=== PATIENT | female | born 1960 | race Asian ===

== ENCOUNTER → 2018-02-16 09:47 | Outpatient (CLI) | payer BC, SELFPAY ==
--- NOTE | 2018-02-16 09:49 | BI_ITS ---
MAMMOGRAPHY - BILATERAL SCREENING REASON FOR EXAM: Female, 57 years old. Routine annual screening examination. PERTINENT HISTORY: Non-contributory. TECHNIQUE: Digital bilateral breast getachew (3D mammographic acquisition) in the CC and MLO projections. 2-D mediolateral oblique (MLO) and craniocaudad (CC) views of both breasts were obtained. CAD: Full Field Digital Mammography with Computer Added Detection was performed. COMPARISON: Comparison is made with prior study dated January 22, 2017 and November 01, 2015. FINDINGS: Breast Composition: The breasts are heterogeneously dense, which may obscure small masses. There are no dominant masses or suspicious calcifications. No other significant abnormalities are identified. There has been no significant change since the prior study. BI/SCREENING MAMM (CAD), BILAT IMPRESSION: Stable bilateral screening mammogram. Yearly follow-up mammogram recommended. (A) ASSESSMENT CATEGORY: BIRADS Category 1: Negative. A letter regarding these results will be sent to the patient by the facility within 30 days. Approximately 10% of breast cancers are not detected by mammography. A normal mammogram should not delay biopsy of a clinically suspicious abnormality. [id number] Electronically Signed: Clayton Bishop MD at 11:14 EDT Tel [phone], Service support ,
== END ==
PROVIDERS: Family Provider Internal Medicine; PCP Internal Medicine; Visit Provider Internal Medicine
DX: Z12.31 Encounter for screening mammogram for malignant neoplasm of breast (principal)
CPT/HCPCS: 77063; 77067

== ENCOUNTER → 2018-05-18 09:49 | Outpatient (CLI) | payer BC, SELFPAY ==
--- NOTE | 2018-05-18 09:52 | RAD_ITS ---
STUDY: X-RAY - LUMBAR SPINE REASON FOR EXAM: Female, 57 years old. Back pain. TECHNIQUE: 5 view(s) of the lumbar spine were obtained. COMPARISON: None FINDINGS: Normal lumbar lordosis. There is no substantial scoliosis. There is a normal alignment of the vertebrae. There is generalized demineralization of the vertebral bodies. Normal disc space heights. There is no demonstrated fracture. The soft tissue structures are unremarkable. RAD/L/S Spine Min 4 Views IMPRESSION: No fracture. Disc spaces are well-preserved. Electronically Signed: Tal Harrell MD at 19:51 EDT , Service support ,
== END ==
PROVIDERS: Family Provider Internal Medicine; PCP Internal Medicine; Visit Provider Nurse Practitioner Gerontology
DX: M54.9 Dorsalgia, unspecified (principal)
CPT/HCPCS: 72110

== ENCOUNTER → 2019-01-13 08:41 | Outpatient (CLI) | payer BC, SELFPAY ==
--- NOTE | 2019-01-13 12:02 | NEURO ---
NCS and/or EMG Patient Report Ordering Doctor: Daniele Pham DATE OF SERVICE: 01/13/19 Jony Tolentino is a 58-year-old female presents for electrodiagnostic testing of the lower limbs. She reports burning and tingling in both feet for the past 6-7 months. Electrodiagnostic findings: Peroneal motor nerve demonstrates normal distal latency, amplitude and conduction velocity bilaterally. Normal tibial motor response bilaterally. Normal peroneal and tibial F waves. H reflex within normal limits. Sensory responses are normal bilaterally. Needle EMG testing shows no evidence of denervation in any muscles tested. Motor unit action potentials were of normal amplitude and duration. Electrodiagnostic impression: This is a normal study in the lower limbs. There is no electrodiagnostic evidence for lumbosacral radiculopathy or peripheral neuropathy. If there are any further questions, please not hesitate to contact me
== END ==
PROVIDERS: Family Provider Internal Medicine; PCP Internal Medicine; Referring Provider Podiatrist; Visit Provider Podiatrist
DX: G57.53 Tarsal tunnel syndrome, bilateral lower limbs (principal); G62.9 Polyneuropathy, unspecified
CPT/HCPCS: 95886; 95913

== ENCOUNTER → 2019-02-25 | Outpatient (CLI) | payer BC, SELFPAY ==
--- NOTE | 2019-02-25 08:21 | BI_ITS ---
MAMMOGRAPHY - BILATERAL SCREENING 3-D TOMOSYNTHESIS REASON FOR EXAM: Female, 58 years old. Bilateral Screening 3-D tomosynthesis PERTINENT HISTORY: No significant family history. TECHNIQUE: 2-D mammograms and 3-D Tomosynthesis of the breast (s) were performed. CAD was performed. COMPARISON: 02/16/2018 FINDINGS: The breast composition is heterogeneously dense that can obscure small breast masses. Scattered benign calcifications are seen. No dense spiculated masses or suspicious microcalcifications are identified. No architectural distortion is identified. There is no skin thickening or retraction. There has been no significant change since the prior study. BI/SCREENING MAMM (CAD), BILAT IMPRESSION: No mammographic signs of malignancy. Routine yearly mammograms recommended. ASSESSMENT CATEGORY: BIRADS Category 1: Negative. A letter regarding these results will be sent to the patient by the facility within 30 days. FOLLOW UP RECOMMENDATION: Yearly follow up mammogram recommended. (A) Approximately 10% of breast cancers are not detected by mammography. A normal mammogram should not delay biopsy of a clinically suspicious abnormality. Electronically Signed: Filiberto Altamirano MD at 9:46 EDT , Service support ,
== END | disposition home or self-care (01) ==
LOC: OPBI 08:20
PROVIDERS: Family Provider Internal Medicine; PCP Internal Medicine; Referring Provider Internal Medicine; Visit Provider Internal Medicine
DX: Z12.31 Encounter for screening mammogram for malignant neoplasm of breast (principal)
CPT/HCPCS: 77063; 77067

== ENCOUNTER 2019-03-12 11:17 | Emergency (ER) | payer BC, SELFPAY ==
[2019-03-12 11:19] VITALS: BP 158/86; PULSE 78; RESP 16; TEMP 36.9; O2SAT 99; BMI 30.4
--- NOTE | 2019-03-12 12:59 | ED.VISSUMM ---
- ER Visit Summary Date of Service: 03/12/19 Chief Complaint: [Swelling to right arm] History of Present Illness: The patient is a 58 F [presents the emergency department complaint of swelling to the right arm. Patient apparently had a CT scan done early this morning as an outpatient in the injected IV fluid and small amount of contrast into her right arm. After speaking with radiologist it was believed that most of the extravasation was from fluid and I suspect may be up to 30 cc of IV contrast before the procedure was stopped and the IV was moved to the opposite side. Injection occurred approximately 9 AM. Patient did have an x-ray of the forearm and it showed mostly fluid and very little contrast in the arm. Out of 10. She denies any weakness distally or paresthesias of the hand.] Physical Examination: [HEENT-PERRLA, EOMI. Cranial nerves II through XII grossly intact. TMs clear. Mucous membranes moist. No adenopathy. Cardiovascular-regular rate and rhythm without murmur or ectopy Lungs-clear to auscultation, chest wall stable without crepitus or subcu emphysema Abdomen-normoactive bowel sounds, soft, nontender, no rebound or rigidity, no peritoneal signs. Extremities-intact ?4, normal range of motion, normal pulses. Right arm-patient has edema of the upper arm as well as the forearm. The compartments are not tight. Patient has normal antecubital pulse as well as radial and ulnar pulse. Normal cap refill. No pallor.] Test Results: [None indicated] Emergency Department Course and Treatment: [I discussed case with radiologist as well as with orthopedic surgeon on-call Dr. Rogers Arzate. We did apply cool compress to the arm. At this point will be a matter of time and symptomatic treatment. There are no signs of compartment syndrome at this time.] Treatment Plan: [Patient was advised on signs and symptoms of compartment syndrome it was recommended that patient follow-up with a tertiary care hospital should she have worsening pain or concern for compartment syndrome at the request of Dr. Rogers Arzate. Patient also was advised that she could present here and then we could potentially transfer her if we felt it was necessary. She does not anything for pain for home.] Disposition: [Discharged home in stable condition] Impression: [Extravasation of IV contrast and normal saline fluid to right arm] This note was generated with [employer] software. It may contain incorrect words, spelling, and punctuation that were not noted in review of the chart prior to signing ED Disposition - Plan for ED Patient: Referrals: Patience Olivas DO [Primary Care Provider] -
--- NOTE | 2019-03-12 13:02 | ED.DEP ---
ED Disposition - Plan for ED Patient: Instructions: ED Compartment Syndrome At Risk For Referrals: Patience Olivas DO [Primary Care Provider] - Rogers Arzate MD [STAFF PHYSICIAN] - 3-5 Days
== END 2019-03-12 13:18 | disposition home or self-care (01) ==
LOC: ED 11:49
PROVIDERS: Emergency Provider Emergency Medicine; Family Provider Internal Medicine; PCP Internal Medicine
DX: T80.89XA Other complications following infusion, transfusion and therapeutic injection, initial encounter (principal); Z87.19 Personal history of other diseases of the digestive system
CPT/HCPCS: 99283

== ENCOUNTER → 2019-03-12 | Outpatient (CLI) | payer BC, SELFPAY ==
[2019-03-11 12:53] LABS: ALB/GLOB Ratio 1.2 RATIO (0.9-2.4); AST(SGOT) 26 U/L (15-37); Alanine Aminotransfer ALT/SGPT 36 U/L (13-56); Albumin, Serum 4.2 g/dL (3.2-5.0); Alkaline Phosphatase 69 U/L (45-117); Anion Gap 5 (5-15); BUN 13 mg/dL (7-18); BUN/Creat Ratio 17.5 RATIO (10-20); Calcium,Total 8.7 mg/dL (8.5-10.1); Chloride 107 mmol/L (98-107); Creatinine, Serum 0.74 mg/dL (0.55-1.02); EST Glomerular Filtration Rate 85 mL/min (>60); Est Glom Filt Rate - Afr Amer 103 mL/min (>60); Globulin 3.5 g/dL (2.2-4.2); Glucose 97 mg/dL (74-106); Potassium 4.2 mmol/L (3.5-5.1); Protein, Total 7.7 g/dL (6.4-8.2); Sodium Level 141 mmol/L (136-145)
--- NOTE | 2019-03-12 08:55 | CT_ITS ---
STUDY: CT ABDOMEN AND PELVIS WITH CONTRAST REASON FOR EXAM: Female, 58 years old. Left lower quadrant pain RADIATION DOSAGE (If Supplied By Facility): CTDIvol = ( 10.47 ) mGy, DLP = ( 851.70 ) mGycm TECHNIQUE: Transaxial images were obtained from the dome of the diaphragm to the symphysis pubis with oral contrast. 100CC IV/Oral Isovue 300 was administered. Sagittal and coronal images were reconstructed. Individualized dose optimization techniques were used for this CT. COMPARISON: 04/11/2017 FINDINGS: The visualized lung bases are unremarkable. The visualized portions of the heart are within normal limits. Normal liver. Normal gallbladder and extrahepatic biliary system. Normal spleen. Normal pancreas. Normal bilateral adrenal glands. Normal right kidney. Normal left kidney. Normal visualized stomach. Normal small intestine. There are multiple colonic diverticula consistent with diverticulosis. Portions of the colon are not well distended limiting evaluation. No significant pericolonic stranding is seen, however. The appendix is visualized and appears normal. There is diffuse atherosclerotic calcification of the abdominal aorta, without a demonstrated aneurysm. Normal inferior vena cava. Normal retroperitoneum. Normal urinary bladder. Fibroid uterus again demonstrated with relatively low density centrally suggesting degeneration/cystic transformation. No pelvic sidewall adenopathy. Normal abdominal wall. Normal osseous structures. CT/Abdomen/Pelvis WITH Contrast IMPRESSION: 1. Diverticulosis without evidence of diverticulitis. 2. Fibroid uterus with some cystic transformation. Electronically Signed: Wiliam Rudolph MD at 22:20 EDT , Service support ,
--- NOTE | 2019-03-12 11:07 | RAD_ITS ---
STUDY: X-RAY - RIGHT RADIUS AND ULNA REASON FOR EXAM: Female, 58 years old. Swelling of the arm following intravenous contrast administration. TECHNIQUE: 2 view(s) of the forearm. COMPARISON: None. FINDINGS: Diffuse soft tissue swelling with increased markings in the subcutaneous fat suggestive of subcutaneous edema and skin thickening. Normal visualized radius. Normal visualized ulna. RAD/Forearm 2 Views IMPRESSION: Diffuse soft tissue swelling and subcutaneous edema. Electronically Signed: Clayton Bishop, at 8:43 EDT , Service support ,
== END | disposition home or self-care (01) ==
PROVIDERS: Family Provider Internal Medicine; PCP Internal Medicine; Referring Provider Nurse Practitioner Gerontology; Visit Provider Nurse Practitioner Gerontology
DX: R60.0 Localized edema (principal); R10.32 Left lower quadrant pain
CPT/HCPCS: 36415; 73090; 74177; 80053; Q9967

== ENCOUNTER → 2019-09-02 09:21 | Outpatient (CLI) | payer BC, SELFPAY ==
--- NOTE | 2019-09-02 09:26 | RAD_ITS ---
STUDY: X-RAY CHEST REASON FOR EXAM: Female, 58 years old. Cough. TECHNIQUE: PA and lateral views of the chest. COMPARISON: None. FINDINGS: The lungs are clear and expanded. There is no demonstrated pleural abnormality. Normal size heart. Normal mediastinum and stephy. Normal visualized pulmonary arteries. There is atherosclerotic calcification of the aortic arch. Normal visualized thoracic spine. Normal visualized ribs, clavicles, and shoulders. There is no demonstrated abnormality of the visualized soft tissue structures of the upper abdomen. RAD/Chest PA and Lateral IMPRESSION: Normal x-ray examination of the chest. Electronically Signed: Tal Harrell MD at 9:47 EDT , Service support ,
== END ==
PROVIDERS: Family Provider Internal Medicine; PCP Internal Medicine; Referring Provider Nurse Practitioner Gerontology; Visit Provider Nurse Practitioner Gerontology
DX: R05 Cough (principal)
CPT/HCPCS: 71046

== ENCOUNTER → 2019-12-17 10:13 | Outpatient (CLI) | payer BC, SELFPAY ==
[2019-11-26 08:22] VITALS: BMI 29.7
--- NOTE | 2019-12-17 10:19 | RAD_ITS ---
STUDY: X-RAY - RIGHT SHOULDER REASON FOR EXAM: Female, 59 years old. SHOULDER PAIN POST ROTATOR CUFF REPAIR TECHNIQUE: 4 view(s) of the shoulder. COMPARISON: October 14, 2013 FINDINGS: There is moderate degenerative arthrosis of the glenohumeral articulation. There is been resected appearance of the right-sided acromioclavicular joint is prior study. Since prior study there are 2 orthopedic tacks overlying the right humerus. Normal acromion. There is demineralization of the humerus and visualized osseous structures. The soft tissue structures are unremarkable. Normal visualized pulmonary apex. RAD/Shoulder min 2 Views IMPRESSION: Postoperative change right shoulder. No visualized acute fracture. Electronically Signed: Lucie Mccloud MD at 17:55 EST Tel , Service support ,
== END ==
PROVIDERS: PCP Internal Medicine; Referring Provider Nurse Practitioner; Visit Provider Nurse Practitioner
DX: M25.511 Pain in right shoulder (principal)
CPT/HCPCS: 73030

== ENCOUNTER → 2020-01-05 08:39 | Outpatient (CLI) | payer BC, SELFPAY ==
[2019-11-26 08:22] VITALS: BMI 29.7
--- NOTE | 2020-01-05 08:45 | RAD_ITS ---
STUDY: X-RAY - ESOPHAGUS (BARIUM SWALLOW) WITH FLUOROSCOPY REASON FOR EXAM: Female, 59 years old. DYSPHAGIA AND CONSTANT COUGH X4 MONTHS, THROAT FEELS TIGHT WHEN SHE SWALLOWS -- 11 FLUORO IMAGES, 28 FLUORO SEC, 9.57mGy TECHNIQUE: 11 view(s) of the esophagus were obtained following swallowing of barium. FLUOROSCOPY TIME (if supplied): (0:28) minutes/seconds COMPARISON: None. FINDINGS: There is no demonstrated esophageal foreign body. There is no demonstrated stricture or mucosal abnormality. Normal gastroesophageal junction, without a demonstrated hiatal hernia. The patient ingest a 12 mm tablet of barium without any difficulty. Normal visualized aortic arch and descending thoracic aorta. Normal visualized pulmonary parenchyma. Normal visualized osseous structures of the thorax. RAD/Esophagus Dual Contrast IMPRESSION: Normal plain film x-ray examination (barium swallow) of the esophagus. Electronically Signed: Clayton Bishop, at 12:55 EST , Service support ,
== END ==
PROVIDERS: PCP Internal Medicine; Referring Provider Internal Medicine; Visit Provider Internal Medicine
DX: R13.10 Dysphagia, unspecified (principal)
CPT/HCPCS: 74221

== ENCOUNTER → 2020-02-28 09:51 | Outpatient (CLI) | payer BC, SELFPAY ==
[2019-11-26 08:22] VITALS: BMI 29.7
--- NOTE | 2020-02-28 09:53 | BI_ITS ---
MAMMOGRAPHY - BILATERAL SCREENING REASON FOR EXAM: Female, 59 years old. Routine annual screening examination. PERTINENT HISTORY: Non-contributory. TECHNIQUE: Digital bilateral breast isaac (3D mammographic acquisition) in the CC and MLO projections. 2-D mediolateral oblique (MLO) and craniocaudad (CC) views of both breasts were obtained. CAD: Full Field Digital Mammography with Computer Added Detection was performed. COMPARISON: Comparison is made with prior examination dated February 25, 2019 and February 16, 2018. FINDINGS: Breast Composition: The breasts are heterogeneously dense, which may obscure small masses. There are no dominant masses or suspicious calcifications. No other significant abnormalities are identified. There has been no significant change since the prior study. BI/SCREEN MAMM (CAD) W/ISAAC BILAT IMPRESSION: Stable bilateral screening mammogram. Yearly follow-up mammogram recommended. (A) ASSESSMENT CATEGORY: BIRADS Category 1: Negative. A letter regarding these results will be sent to the patient by the facility within 30 days. Approximately 10% of breast cancers are not detected by mammography. A normal mammogram should not delay biopsy of a clinically suspicious abnormality. [id number] Electronically Signed: Clayton Bishop, at 10:52 EDT , Service support ,
== END ==
PROVIDERS: PCP Internal Medicine; Referring Provider Internal Medicine; Visit Provider Internal Medicine
DX: Z12.31 Encounter for screening mammogram for malignant neoplasm of breast (principal)
CPT/HCPCS: 77063; 77067

== ENCOUNTER → 2020-06-26 09:13 | Outpatient (CLI) | payer BC, SELFPAY ==
[2019-11-26 08:22] VITALS: BMI 29.7
--- NOTE | 2020-06-26 09:18 | RAD_ITS ---
STUDY: X-RAY CHEST REASON FOR EXAM: Female, 59 years old. SOB TECHNIQUE: PA and lateral views of the chest. COMPARISON: 09/02/2019 FINDINGS: The lungs are clear and expanded. There is no demonstrated pleural abnormality. Normal size heart. Normal mediastinum and stephy. Normal visualized pulmonary arteries. Normal visualized aortic arch and descending thoracic aorta. Normal visualized thoracic spine. Normal visualized ribs, clavicles, and shoulders. There is no demonstrated abnormality of the visualized soft tissue structures of the upper abdomen. RAD/Chest PA and Lateral IMPRESSION: Normal x-ray examination of the chest. Electronically Signed: Raymundo Tee MD at 17:18 EDT Tel , Service support ,
== END ==
PROVIDERS: PCP Internal Medicine; Referring Provider Internal Medicine; Visit Provider Internal Medicine
DX: R06.02 Shortness of breath (principal)
CPT/HCPCS: 71046

== ENCOUNTER → 2020-07-11 11:01 | Outpatient (CLI) | payer BC, SELFPAY ==
[2019-11-26 08:22] VITALS: BMI 29.7
--- NOTE | 2020-07-11 11:05 | BD_ITS ---
STUDY: DUAL ENERGY X-RAY ABSORPTIOMETRY / DXA REASON FOR EXAM: Female, 59 years old. 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 COMPARISON: Comparison is made with prior study dated 04/23/2017. FINDINGS: Lumbar Spine (L1-L4): g/cm2 (0.835) / T-score (-3.0) / Z-score (-1.9) Findings are suggestive of osteoporosis with a high fracture risk. Left Femur Total: g/cm2 (0.910) / T-score (-0.8) / Z-score (0.1) Left Femoral Neck: g/cm2 (0.887) / T-score (-1.1) / Z-score (0.1) Right Femur Total: g/cm2 (0.962) / T-score (-0.4) / Z-score (0.5) Right Femoral Neck: g/cm2 (0.857) / T-score (-1.3) / Z-score (-0.1) The T-Scores on the most recent prior examination were: Lumbar Spine (L1-L4): There has been worsening of bone density since the previous examination. Left Femur Total: which represents a worsening of 5.3%. Right Femur Total: which represents an improvement of 0.5%. BD/Dexa Bone Density Study IMPRESSION: The patient is considered osteoporotic as outlined below according to World Royal Organization (WHO) criteria with a high fracture risk. There has been worsening of bone density since the previous examination. Reference Information: The T-score is the number of standard deviations above or below the standard which is normal for young adults at their peak bone mineral density. The World Health Organization (WHO) interprets the T-scores as follows: Above -1 Normal bone density Between -1 and -2.5 Osteopenia Equal to / or below -2.5 Osteoporosis As a practical clinical guideline, osteopenia may be graded as follows: Mild -1 through -1.5 Moderate -1.6 through -2.0 Severe -2.1 through -2.4 The Z-score is the number of standard deviations above or below age-matched controls. A Z-score of less than -1.5 would be considered abnormal. References: 1. NIH Osteoporosis and Related Bone Diseases http://www.osteo.org 2. International Society for Clinical Densitometry http://www.iscd.org 3. National Osteoporosis Foundation http://www.nof.org Electronically Signed: Clayton Bishop, at 12:42 EDT , Service support ,
== END ==
PROVIDERS: PCP Internal Medicine; Referring Provider Internal Medicine; Visit Provider Internal Medicine
DX: Z78.0 Asymptomatic menopausal state (principal); M81.0 Age-related osteoporosis without current pathological fracture
CPT/HCPCS: 77080

== ENCOUNTER 2021-01-19 14:31 | Outpatient (RCR) | payer OTHER, SELFPAY ==
[2019-11-26 08:22] VITALS: BMI 29.7
[2021-01-19] MEDS: COVID-19 VACC, MRNA(PFIZER)/PF 30 MCG/0.3 ML SYRINGE IM (15:02)
[2021-02-09] MEDS: COVID-19 VACC, MRNA(PFIZER)/PF 30 MCG/0.3 ML SYRINGE IM (14:49)
== END 2021-01-19 23:59 ==
LOC: IMMUN 14:31
PROVIDERS: PCP Internal Medicine; Visit Provider Family Medicine
DX: Z23 Encounter for immunization (principal)
CPT/HCPCS: 0001A; 0002A; 91300

== ENCOUNTER → 2021-03-12 08:13 | Outpatient (CLI) | payer OTHER, SELFPAY ==
[2019-11-26 08:22] VITALS: BMI 29.7
--- NOTE | 2021-03-12 08:16 | BI_ITS ---
MAMMOGRAPHY - BILATERAL SCREENING REASON FOR EXAM: Female, 60 years old. Routine annual screening examination. PERTINENT HISTORY: Non-contributory. TECHNIQUE: Digital bilateral breast isaac (3D mammographic acquisition) in the CC and MLO projections. 2-D mediolateral oblique (MLO) and craniocaudad (CC) views of both breasts were obtained. CAD: Full Field Digital Mammography with Computer Added Detection was performed. COMPARISON: Comparison is made with prior study dated 02/28/2020 and 02/25/2019. FINDINGS: Breast Composition: The breasts are heterogeneously dense, which may obscure small masses. There are no dominant masses or suspicious calcifications. Stable small benign-appearing bilateral axillary lymph nodes. No other significant abnormalities are identified. There has been no significant change since the prior study. BI/SCRN MAMM (CAD)W/ISAAC BILAT IMPRESSION: Stable bilateral screening mammogram. Yearly follow-up mammogram recommended. (A) ASSESSMENT CATEGORY: BIRADS Category 2: Benign. A letter regarding these results will be sent to the patient by the facility within 30 days. Approximately 10% of breast cancers are not detected by mammography. A normal mammogram should not delay biopsy of a clinically suspicious abnormality. [id number] Electronically Signed: Clayton Bishop MD at 9:03 EDT , Service support ,
== END ==
PROVIDERS: PCP Internal Medicine; Referring Provider Internal Medicine; Visit Provider Internal Medicine
DX: Z12.31 Encounter for screening mammogram for malignant neoplasm of breast (principal)
CPT/HCPCS: 77063; 77067

== ENCOUNTER → 2021-06-28 09:34 | Outpatient (CLI) | payer OTHER, SELFPAY ==
[2021-06-28 12:33] LABS: Absolute Lymphocyte Count 2.24 X10^3/uL (0.83-4.51); Absolute Neutrophil Count 2.8 X10^3/uL (2.0-7.7); Basophil# 0.11 X10^3/uL; Basophil% 1.8 % (0-1); Eosinophil# 0.39 X10^3/uL; Eosinophils% 6.5 % (0-5); Hematocrit 41.8 % (37-47); Hemoglobin 13.4 g/dL (12.0-15.0); Lymphocyte # 2.24 X10^3/ul (0.83-4.51); Lymphocyte % 37.1 % (19-41); Mean Corp Hgb Conc 32.1 g/dL (32-36); Mean Corpuscular Hgb 30.3 pg (27.0-32.0); Mean Corpuscular Volume 94.6 fL (81-99); Mean Platelet Vol. 10.9 fl (6.2-12.0); Monocyte# 0.44 X10^3/uL; Monocyte% 7.3 % (0-10); NRBC Flagged by Analyzer 0 % (0-5); Neutrophil # 2.84 X10^3/uL (2.7-7.7); Neutrophil % 47.1 % (47-70); Platelet Count 270 K/mm3 (150-450); RBC Distribution Width CV 11.4 % (11.6-14.6); RBC Distribution Width SD 39.5 fl (35.1-43.9); Red Blood Count 4.42 M/mm3 (4.2-5.4)
[2021-06-28 12:43] LABS: T3 Total - Triiodothyronine 1.27 ng/mL (0.6-1.81); Vitamin D,25 Hydroxy 53.4 ng/mL
[2021-06-28 13:02] LABS: AST(SGOT) 40 U/L (15-37); Alanine Aminotransfer ALT/SGPT 62 U/L (13-56); Albumin, Serum 4.1 g/dL (3.2-5.0); Alkaline Phosphatase 59 U/L (45-117); Anion Gap 3 (5-15); BUN 11 mg/dL (7-18); BUN/Creat Ratio 14.6 RATIO (10-20); Calcium,Total 9.2 mg/dL (8.5-10.1); Chloride 105 mmol/L (98-107); Creatinine, Serum 0.75 mg/dL (0.55-1.02); EST Glomerular Filtration Rate 84 mL/min (>60); Est Glom Filt Rate - Afr Amer 101 mL/min (>60); Ferritin 431 ng/mL (8-252); Glucose 108 mg/dL (74-106); Potassium 4.1 mmol/L (3.5-5.1); Protein, Total 8.1 g/dL (6.4-8.2); Sodium Level 139 mmol/L (136-145); T4 Free Direct 1.06 ng/dL (0.76-1.46); Thyroid Stim Hormone (TSH) 3.03 uIU/mL (0.358-3.74)
[2021-06-29 12:13] LABS: Thyroid Peroxidase AB 24 IU/mL (0-34)
[2021-07-02 20:51] LABS: Vitamin D 1,25-Dihydroxy 50.5 pg/mL (19.9-79.3)
== END ==
PROVIDERS: PCP Internal Medicine; Referring Provider Physician Assistant; Visit Provider Physician Assistant
DX: L64.8 Other androgenic alopecia (principal)
CPT/HCPCS: 36415; 80053; 82306; 82652; 82728; 84439; 84443; 84480; 85025; 86376

== ENCOUNTER 2021-09-04 13:39 | Outpatient (CLI) | payer OTHER, SELFPAY ==
[2021-09-04 13:55] VITALS: BP 140/80; PULSE 88; RESP 16; TEMP 36.7; O2SAT 100; BMI 30.2
[2021-09-04] MEDS: 0.9% Saline Lock 10 ML Syringe IV (13:55)
[2021-09-04 14:56] VITALS: BP 126/71; PULSE 72; RESP 16; TEMP 36.6; O2SAT 100
[2021-09-04 15:50] VITALS: BP 124/71; PULSE 68; RESP 16; TEMP 36.8; O2SAT 100
== END 2021-09-04 15:59 | disposition home or self-care (01) ==
LOC: MS3OUT 13:39 → MS3 13:40
PROVIDERS: PCP Internal Medicine; Referring Provider Nurse Practitioner Adult Health; Visit Provider Nurse Practitioner Adult Health
DX: Z23 Encounter for immunization (principal); U07.1 COVID-19
CPT/HCPCS: J7050; M0245; Q0245; A4216

== ENCOUNTER 2021-12-30 15:56 | Emergency (ER) | payer BC, SELFPAY ==
[2021-12-30 15:57] VITALS: BP 127/77; PULSE 82; RESP 16; TEMP 36.6; O2SAT 98; BMI 31.2
--- NOTE | 2021-12-30 16:33 | EDS_ITS ---
HPI History of Present Illness Chief Complaint: Back Informant: patient and spouse/S.O. Onset/Context/Timing Onset: Weeks Context: Gradual Onset Timing: Continuous Quality: Sharp Location: Lumbar, Buttock and Left Leg Current Severity: Moderate Maximum Severity: Moderate Worsened by: improves with Movement, Bending and Lifting; worse with Night time pain Relieved by: Remaining Still Associated Symptoms Associated Symptoms: Radiation to Left Leg; Negative for Numbness, Tingling, Radiation to Right Leg, Fever, Abdominal Pain, Dysuria, Unable to Ambulate, Unable to Transfer, Urinary Retention, Urinary Incontinence, Constipation and Fecal Incontinence Narrative Narrative: 61-year-old female complaining of low back pain for at least 3 weeks. She saw a chiropractor was adjusted. States now the pain is primarily in her lower back across and goes to her left buttock and left hamstring. She denies any fall injury or prior trauma. She denies any fever. No bowel or bladder incontinence. No dysuria. No prior back history or surgery. Prior similar symptoms: Yes Recent Illness/Hospitalization: No PFSH PFSH Medical History no medical history no medical history Home Medications fexofenadine [Allergy Relief (fexofenadine)] 180 mg PO DAILY 09/04/21 [History Last Taken Unknown] hydrocodone-acetaminophen 1 tab PO Q4H PRN 3 Days #7 tab 12/30/21 [Rx Last Taken Unknown] Allergy/AdvReac Type Severity Reaction Status Date / Time No Known Allergies Allergy Verified 12/30/21 16:00 Social History Smoking Status: Never smoker ROS ROS ED ROS Narrative Denies recent illness. Review of Systems ROS Unobtainable: Denies due to encephalopathy Constitutional Constitutional ED: Denies fever(s) Eyes Eyes: Denies change in vision ENT ENT ED: Denies ear pain Cardiovascular Cardiovascular: Denies chest pain Respiratory/Chest Respiratory/Chest: Denies dyspnea Gastrointestinal Gastrointestinal: Denies abdominal pain, diarrhea, nausea or vomiting Genitourinary Genitourinary ED: Denies dysuria Musculoskeletal Musculoskeletal: Reports back pain; Denies myalgias Integumentary Denies rash Neurologic Neurologic: Denies headache(s) Psychiatric Psychiatric: Denies depression Endocrine Endocrinology: Denies polyuria Hematologic/Lymphatic Hematologic/Lymphatic: Denies easy bruising Allergic/Immunologic Allergic/Immunologic ED: Denies urticaria EXAM Physical Exam Narrative Exam Narrative: 61-year-old female no acute distress. Vital signs stable afebrile. H EENT exam unremarkable. Neck nontender. Lungs clear to auscultation bilaterally. Heart regular rhythm rate about 80 no murmur. Abdomen soft nontender normal bowel sounds no peritoneal signs. No pulsatile mass. Moving all 4 extremities. Neurovascularly intact. 5-5 automotive tire tester strength. Dorsi plantarflexion intact. She has normal medial thigh sensation. No cauda equina. No saddle anesthesia. Back exam she is tenderness primarily over the left SI joint. The cervical, thoracic and lumbar spine are nontender. There is no signs of trauma. Neurologically she is awake and alert with no focal weakness or numbness in upper or lower extremities. She has 5-5 dorsi and plantar flexion in both feet. Const Vital Signs: 12/30/21 15:57 12/30/21 16:57 12/30/21 18:01 Temperature 97.8 F Temperature Source Temporal Pulse Rate 82 77 70 Respiratory Rate 16 14 12 Blood Pressure 127/77 H 123/70 H 120/72 Blood Pressure Mean 93 87 88 Pulse Ox 98 98 98 Oxygen Delivery Method Room Air Room Air Room Air Positive well nourished, well developed and obese; Negative for cachectic, contractures or unkempt General Appearance ED: well developed and NAD; Negative for unkempt, cachectic, contractures or pallor Nutritional Appearance: obese; Negative for cachectic HEENT Reports moist mucous membranes Negative for trauma or tenderness Eyes PERRL and EOMs intact bilaterally Neck no lymphadenopathy, supple and no JVD General: Negative for tenderness Resp normal respiratory effort and clear to auscultation bilaterally Effort and Inspection: Negative for pain with movement or other Auscultation: Negative for rales, rhonchi or wheezes Cardio regular rate, regular rhythm, S1 normal heart sound, S2 normal heart sound and no murmurs GI normal to inspection, nondistended, normoactive bowel sounds, soft to palpation, non-tender, non-distended and no masses Inspection: Negative for abdominal distention Auscultation: Negative for hyperactive bowel sounds Palpation: Negative for tender, guarding, mass, pulsatile mass or rebound tenderness present Back/Spine normal to inspection and no thoracic nor lumbar tenderness Back/Spine Narrative: Tenderness left SI joint. Positive straight leg raise on the left. General Back: Negative for CVA tenderness or scar(s) Cervical Spine: Negative for cervical spine tenderness and Negative for paracervical muscle tenderness Thoracic Spine / Upper Back: Negative for paraspinal muscle tenderness Lumbar Spine / Lower Back: straight leg raise positive - left Extremity normal to inspection General Extremety ED: Negative for edema or tenderness General Extremity: Negative for edema Neuro oriented x3 and no sensory deficits noted Sensorium / Orientation: alert; Negative for confused, lethargic or stuporous Motor Exam: strength 5/5 throughout Psych mental status grossly normal Appearance: Negative for unkempt Mood & Affect: Negative for depressed Skin no rashes or lesions noted and no wounds General Skin Exam: Negative for jaundice or pallor MDM MDM MDM Narrative Medical decision making narrative: 61-year-old with back pain. It seems to be acute sciatica. Patient received IM morphine and p.o. Zofran. Reassess. I am obtaining a limited lumbar spine. Repeat exam patient is doing much better at 6:05 PM. She comfortable being discharged home. Went over x-ray results and outpatient follow-up. Radiography X-Ray: LS SPine, Read by ED Physician, Normal, No Fracture, Normal Bony Alignment, DJD, Spurring and Osteophytes Diagnostic Testing: LS spine is basically unremarkable. No significant arthritis. Good disc space. Read by myself. 3 views. Discharge Plan Triage Chief Complaint: Back ED Provider: Asif Latif Dx/Rx/DC Orders Clinical Impression: Sciatica Instructions: ED Sciatica Prescriptions: New hydrocodone-acetaminophen 5-325 mg tablet 1 tab PO Q4H PRN (Reason: pain) 3 Days Qty: 7 RF: 0 No Action fexofenadine [Allergy Relief (fexofenadine)] 180 mg tablet 180 mg PO DAILY RF: 0 Primary Care Provider: Patience Olivas Referrals: Patience Olivas DO [Primary Care Provider] - 1 Week if not improving Activity Restrictions/Additional Instructions: Motrin and Tylenol for pain. Ice to your left sciatic area on your lower back. [place] for more severe pain. Follow-up with your doctor if not improving. Disposition Disposition: Home, Self Care
[2021-12-30] MEDS: morphine 10 MG/ML Syringe IM (16:54)
[2021-12-30] MEDS: Ondansetron ODT 4 MG Tablet PO (16:54)
[2021-12-30 16:57] VITALS: BP 123/70; PULSE 77; RESP 14; O2SAT 98
--- NOTE | 2021-12-30 17:40 | RAD_ITS ---
STUDY: X-RAY - LUMBAR SPINE REASON FOR EXAM: Female, 61 years old. LOW BACK PAIN atraumatic pain TECHNIQUE: XR Spine Lumbar 2 or 3 Views COMPARISON: 05/18/18 FINDINGS: Normal lumbar lordosis. There is no substantial scoliosis. There is a normal alignment of the vertebrae. Normal vertebral bodies and endplates. Normal disc space heights. The soft tissue structures are unremarkable. RAD/Lumbar Spine 2 or 3 Views IMPRESSION: There are no acute findings. Electronically Signed: Robert Kumari MD at 18:59 EST ,
[2021-12-30 18:01] VITALS: BP 120/72; PULSE 70; RESP 12; O2SAT 98
[2021-12-30 18:23] VITALS: PULSE 74; RESP 12
== END 2021-12-30 18:24 | disposition home or self-care (01) ==
PROVIDERS: Emergency Provider Emergency Medicine; PCP Internal Medicine; Visit Provider Emergency Medicine
DX: M54.40 Lumbago with sciatica, unspecified side (principal)
CPT/HCPCS: 72100; 96372; 99282

== ENCOUNTER 2022-02-13 11:26 | Outpatient (CLI) | payer BC, SELFPAY ==
--- NOTE | 2022-02-13 11:10 | RAD_ITS ---
STUDY: X-RAY CHEST REASON FOR EXAM: Female, 61 years old. Cough. TECHNIQUE: Frontal and lateral views of the chest. COMPARISON: None. FINDINGS: The lungs are clear and expanded. There is no demonstrated pleural abnormality. Normal size heart. Normal mediastinum and stephy. Normal visualized pulmonary arteries. Aortic tortuosity with calcification. Normal visualized thoracic spine. Normal visualized ribs, clavicles, and shoulders. There is no demonstrated abnormality of the visualized soft tissue structures of the upper abdomen. RAD/Chest PA and Lateral IMPRESSION: No active or acute cardiopulmonary disease. Electronically Signed: Jarrod Calderon MD at 9:46 EDT ,
[2022-02-13 15:55] LABS: Hematocrit 43.2 % (37-47); Hemoglobin 14.4 g/dL (12.0-15.0); Mean Corp Hgb Conc 33.3 g/dL (32-36); Mean Corpuscular Hgb 30.9 pg (27.0-32.0); Mean Corpuscular Volume 92.7 fL (81-99); Mean Platelet Vol. 10.7 fl (6.2-12.0); Platelet Count 283 K/mm3 (150-450); RBC Distribution Width CV 11.5 % (11.6-14.6); Red Blood Count 4.66 M/mm3 (4.2-5.4); White Blood Count 5.4 K/mm3 (4.4-11.0)
== END 2022-02-13 23:59 | disposition home or self-care (01) ==
PROVIDERS: PCP Internal Medicine; Referring Provider Internal Medicine Pulmonary Disease; Visit Provider Internal Medicine Pulmonary Disease
DX: U07.1 COVID-19 (principal); R05.9 Cough, unspecified
CPT/HCPCS: 36415; 71046; 85027

== ENCOUNTER → 2022-03-14 | Outpatient (CLI) | payer BC, SELFPAY ==
--- NOTE | 2022-03-14 09:03 | BI_ITS ---
MAMMOGRAPHY - BILATERAL SCREENING REASON FOR EXAM: Female, 61 years old. Routine annual screening examination. PERTINENT HISTORY: Non-contributory. TECHNIQUE: Digital bilateral breast isaac (3D mammographic acquisition) in the CC and MLO projections. 2-D mediolateral oblique (MLO) and craniocaudad (CC) views of both breasts were obtained. CAD: Full Field Digital Mammography with Computer Added Detection was performed. COMPARISON: Comparison is made with prior study dated 03/12/2021 and 02/28/2020. FINDINGS: Breast Composition: The breasts are heterogeneously dense, which may obscure small masses. There are no dominant masses or suspicious calcifications. No other significant abnormalities are identified. There has been no significant change since the prior study. BI/SCRN MAMM (CAD)W/ISAAC BILAT IMPRESSION: Stable bilateral screening mammogram. Yearly follow-up mammogram recommended. (A) ASSESSMENT CATEGORY: BIRADS Category 1: Negative. A letter regarding these results will be sent to the patient by the facility within 30 days. Approximately 10% of breast cancers are not detected by mammography. A normal mammogram should not delay biopsy of a clinically suspicious abnormality. [id number] Electronically Signed: Clayton Bishop MD at 10:07 EDT ,
== END | disposition home or self-care (01) ==
LOC: OPBI 09:02
PROVIDERS: PCP Internal Medicine; Visit Provider Internal Medicine
DX: Z12.31 Encounter for screening mammogram for malignant neoplasm of breast (principal)
CPT/HCPCS: 77063; 77067

== ENCOUNTER → 2022-04-18 | Outpatient (CLI) | payer BC, SELFPAY ==
--- NOTE | 2022-04-18 14:03 | US_ITS ---
STUDY: ABDOMINAL ULTRASOUND - RIGHT UPPER QUADRANT REASON FOR VISIT: Female, 61 years old EPIGASTRIC PAIN TECHNIQUE: Ultrasound evaluation of the right upper quadrant was performed with real-time and static meyer-scale imaging. TECHNICAL QUALITY: Adequate. COMPARISON: None. FINDINGS: Liver: The liver measures 12.5 cm. There is increased echogenicity consistent with fatty infiltration. The bile ducts are within normal limits. There is hepatic color flow. The direction of portal flow is hepatopetal. There is no demonstrated mass lesion. Gallbladder: Normal distended gallbladder. The gallbladder wall measures 1.8 mm. There is a negative sonographic Curtis''s sign. There is no pericholecystic fluid. There are no gallstones. Common Bile Duct (C.B.D.): The common bile duct measures 3.6 mm. Pancreas: Normal size of the head, body and tail of the pancreas. There is normal echogenicity of the pancreas. There is no demonstrated pancreatic mass or cyst. Right Kidney: Normal size of the right kidney. The right kidney measures 11.7 cm x 5.6 cm x 3.8 cm. Normal renal cortex. The right cortex measures 1.1 cm. There is no demonstrated renal mass or cyst. There is no right hydronephrosis. US/Gallbladder IMPRESSION: Fatty infiltration of the liver. Electronically Signed: Clayton Bishop MD at 15:39 EDT ,
== END | disposition home or self-care (01) ==
LOC: US 14:01
PROVIDERS: PCP Internal Medicine; Visit Provider Internal Medicine
DX: R10.13 Epigastric pain (principal)
CPT/HCPCS: 76705

== ENCOUNTER → 2022-05-10 | Outpatient (CLI) | payer BC, SELFPAY ==
--- NOTE | 2022-05-10 09:47 | NM_ITS ---
EXAM: NM HEPATOBILIARY SCAN CLINICAL INDICATION: EPIGASTRIC PAIN TECHNIQUE: Technetium 99m choletec was intravenously administered and static images were obtained. This report was created using [employer] report [employer] technology. COMPARISON: None. FINDINGS: LIVER: There is prompt uptake of radiopharmaceutical seen within the liver. There is no abnormal hyperemia along the gallbladder fossa. BILE DUCTS: The patient was administered 1.5 mcg of sincalide with images obtained for additional 30 minutes. There is biliary bowel activity 15 minutes following CCK administration. GALLBLADDER: There is activity within the gallbladder by 10 to 15 minutes. There is no evidence of biliary to bowel activity after 60 minutes. Gallbladder ejection fraction was measured at 10, 20 and 30 minutes which showed a gallbladder ejection fraction of 12, 35 and 36% respectively. STOMACH AND BOWEL: See above. NM/Hepatobilliary Img w/Pharm Int IMPRESSION: 1. Unremarkable hepatobiliary scan. There is no evidence of cholecystitis or common duct obstruction. 2. Low normal gallbladder ejection fraction of 36 % 30 minutes following the intravenous administration of CCK. Electronically Signed: Jean Stone MD at 17:53 EDT ,
== END | disposition home or self-care (01) ==
PROVIDERS: PCP Internal Medicine; Referring Provider Internal Medicine; Visit Provider Internal Medicine
DX: R10.13 Epigastric pain (principal)
CPT/HCPCS: 78227; A9537; J2805

== ENCOUNTER → 2022-07-10 | Outpatient (CLI) | payer BC, SELFPAY ==
[2022-07-10 15:54] LABS: Hematocrit 44.1 % (37-47); Hemoglobin 14.9 g/dL (12.0-15.0); Mean Corp Hgb Conc 33.8 g/dL (32-36); Mean Corpuscular Hgb 31.6 pg (27.0-32.0); Mean Corpuscular Volume 93.6 fL (81-99); Platelet Count 268 K/mm3 (150-450); RBC Distribution Width CV 11.1 % (11.6-14.6); RBC Distribution Width SD 38.6 fl (35.1-43.9); Red Blood Count 4.71 M/mm3 (4.2-5.4); White Blood Count 5.7 K/mm3 (4.4-11.0)
[2022-07-10 16:03] LABS: Vitamin D,25 Hydroxy 49.2 ng/mL
[2022-07-10 16:08] LABS: Anion Gap 6 (5-15); BUN 14 mg/dL (7-18); BUN/Creat Ratio 16.1 RATIO (10-20); Calcium,Total 9.4 mg/dL (8.5-10.1); Chloride 104 mmol/L (98-107); Creatinine, Serum 0.87 mg/dL (0.55-1.02); EST Glomerular Filtration Rate 71 mL/min (>60); Est Glom Filt Rate - Afr Amer 85 mL/min (>60); Ferritin 446 ng/mL (8-252); Glucose 115 mg/dL (74-106); Potassium 4.5 mmol/L (3.5-5.1); Sodium Level 139 mmol/L (136-145); T4 Free Direct 1.06 ng/dL (0.76-1.46); Thyroid Stim Hormone (TSH) 2.11 uIU/mL (0.358-3.74)
[2022-07-14 11:47] LABS: Zinc, Plasma or Serum 106 ug/dL (44-115)
[2022-07-16 16:34] LABS: Vitamin D 1,25-Dihydroxy 62.8 pg/mL (24.8-81.5)
== END | disposition home or self-care (01) ==
PROVIDERS: PCP Internal Medicine; Referring Provider Dermatology; Visit Provider Dermatology
DX: L64.8 Other androgenic alopecia (principal)
CPT/HCPCS: 36415; 80048; 82306; 82652; 82728; 84439; 84443; 84630; 85027

== ENCOUNTER → 2022-07-16 | Outpatient (CLI) | payer BC, SELFPAY ==
--- NOTE | 2022-07-16 08:54 | BD_ITS ---
STUDY: DUAL ENERGY X-RAY ABSORPTIOMETRY / DXA REASON FOR EXAM: Female, 61 years old. [id number]. Patient is postmenopausal. TECHNIQUE: Bone Mineral Density (BMD) measurements of lumbar spine and bilateral hips were obtained. COMPARISON: Comparison is made with prior study 07/11/2020. FINDINGS: Lumbar Spine (L1-L4): g/cm2 (0.777) / T-score (-2.5) / Z-score (-0.9) Findings are suggestive of osteopenia with a high fracture risk. Left Femur Total: g/cm2 (0.875) / T-score (-0.5) / Z-score (0.5) Left Femoral Neck: g/cm2 (0.727) / T-score (-1.1) / Z-score (0.3) Right Femur Total: g/cm2 (0.902) / T-score (-0.3) / Z-score (0.7) Right Femoral Neck: g/cm2 (0.685) / T-score (-1.5) / Z-score (-0.1) The T-Scores on the most recent prior examination were: Lumbar Spine (L1-L4): There has been improvement of bone density since the previous examination. Left Femur Total: which represents an improvement of 3.4%. Right Femur Total: which represents an improvement of 0.5%. BD/Dexa Bone Density Study IMPRESSION: The patient is considered osteopenic as outlined below according to World Royal Organization (WHO) criteria with a high fracture risk. There has been improvement of bone density since the previous examination. Reference Information: The T-score is the number of standard deviations above or below the standard which is normal for young adults at their peak bone mineral density. The World Health Organization (WHO) interprets the T-scores as follows: Above -1 Normal bone density Between -1 and -2.5 Osteopenia Equal to / or below -2.5 Osteoporosis As a practical clinical guideline, osteopenia may be graded as follows: Mild -1 through -1.5 Moderate -1.6 through -2.0 Severe -2.1 through -2.4 The Z-score is the number of standard deviations above or below age-matched controls. A Z-score of less than -1.5 would be considered abnormal. References: 1. NIH Osteoporosis and Related Bone Diseases www osteo.org 2. International Society for Clinical Densitometry www iscd.org 3. National Osteoporosis Foundation www nof.org Electronically Signed: Clayton Bishop MD at 14:40 EDT ,
== END | disposition home or self-care (01) ==
LOC: OPBD 08:49
PROVIDERS: PCP Internal Medicine; Referring Provider Internal Medicine; Visit Provider Internal Medicine
DX: Z78.0 Asymptomatic menopausal state (principal); M85.80 Other specified disorders of bone density and structure, unspecified site
CPT/HCPCS: 77080

== ENCOUNTER 2022-08-16 14:15 | Emergency (ER) | payer BC, SELFPAY ==
[2022-08-16 14:15] VITALS: BP 138/107; PULSE 90; RESP 18; TEMP 36.6; O2SAT 100; BMI 31.2
--- NOTE | 2022-08-16 14:26 | ED.VIS.GI ---
HPI HPI - GI History of Present Illness Chief Complaint: Abd Pain Abdominal Pain/Flank Pain Onset: Days (2) Context: Gradual Onset Timing: Continuous Quality: Burning Location: LUQ and LLQ Worsened by: Movement Relieved by: Remaining Still Nausea/Vomiting/Emesis GI Symptom: Negative for Nausea or Vomiting Diarrhea/Melena/Hematochezia GI Symptom: Negative for Diarrhea, Melena or Hematochezia Associated Symptoms Associated Symptoms: Negative for Dysuria, Frequency or Hematuria Narrative Narrative: Patient presents with abdominal pain that has been getting progressively worse over the past 2 days. Patient states it has been constant. Patient describes the pain as burning. Patient states the pain is over the left side of her abdomen. Patient states it is worse with movement. Patient states it is better whenever she is is able to stay still. Patient states this pain feels similar to prior episodes of diverticulitis. Patient denies any nausea or vomiting. Patient denies any diarrhea, melena, or hematochezia. Patient denies any dysuria, hematuria, or frequency. PFSH PFSH Medical History (Updated 08/16/22 @ 15:[address] Kash Medel DO) Diverticulitis Home Medications fexofenadine 180 mg tablet (Allergy Relief (fexofenadine)) 180 mg PO DAILY 09/04/21 [History Last Taken Unknown] hydrocodone-acetaminophen 5-325mg 5mg-325mg 1 tab PO Q4H PRN pain 3 days #7 tabs 12/30/21 [Rx Last Taken Unknown] ciprofloxacin HCl 500 mg tablet 500 mg PO BID #20 TABLETS 08/16/22 [Rx Last Taken Unknown] metronidazole 500 mg tablet 500 mg PO Q6H #40 tabs 08/16/22 [Rx Last Taken Unknown] Allergy/AdvReac Type Severity Reaction Status Date / Time No Known Allergies Allergy Verified 08/16/22 14:17 Surgical History History of carpal tunnel surgery Hx of rotator cuff surgery Social History Smoking Status: Never smoker ROS ROS ED Constitutional Constitutional ED: Denies chills or fever(s) Eyes Eyes: Denies blurry vision or change in vision ENT ENT ED: Denies rhinorrhea or sore throat Cardiovascular Cardiovascular: Denies chest pain or palpitations Respiratory/Chest Respiratory/Chest: Denies cough or dyspnea Gastrointestinal Gastrointestinal: Reports abdominal pain; Denies nausea or vomiting Genitourinary Genitourinary ED: Denies dysuria or hematuria Musculoskeletal Musculoskeletal: Reports back pain; Denies neck pain Integumentary Denies abscess or rash Neurologic Neurologic: Denies headache(s) or weakness Allergic/Immunologic Allergic/Immunologic ED: Denies mouth swelling or urticaria EXAM Physical Exam Const Vital Signs: 08/16/22 14:15 Temperature 98 F Temperature Source Temporal Pulse Rate 90 Respiratory Rate 18 Blood Pressure 138/107 H Blood Pressure Mean 117 Pulse Ox 100 Oxygen Delivery Method Room Air Positive well nourished and well developed General Appearance ED: well developed HEENT Reports moist mucous membranes Neck supple and no JVD Resp normal respiratory effort and clear to auscultation bilaterally Cardio regular rate, regular rhythm and no murmurs GI normal to inspection, nondistended, normoactive bowel sounds Palpation: soft and tender LLQ and LUQ; Negative for guarding or rebound tenderness present Extremity normal to inspection General Extremety ED: Negative for edema or tenderness General Extremity: Negative for edema Neuro oriented x3, CN's II-XII intact bilaterally and no sensory deficits noted Sensorium / Orientation: alert Motor Exam: strength 5/5 throughout Psych mental status grossly normal Skin no rashes or lesions noted MDM MDM MDM Narrative Medical decision making narrative: CBC shows a slight leukocytosis of 11.2. Comprehensive metabolic profile shows a slightly increased creatinine of 1.26. Total bilirubin was slightly elevated at 1.4. Lipase was normal. CT scan of the abdomen pelvis was obtained. There is sigmoid diverticulitis noted. There is no perforation or abscess noted. This was interpreted by the radiologist and reviewed by myself. Urinalysis does not show any evidence of urinary tract infection or hematuria. Patient was given prescriptions for Cipro and Flagyl. Patient was instructed to avoid alcohol while taking the Flagyl. Patient was instructed to follow-up with her primary care physician in 3 to 5 days for reevaluation. Patient understood and was agreeable with the plan. All questions were answered. Lab Data Attestation: I reviewed the patient's lab results. Labs: Laboratory Results - last 24 hr 08/16/22 08/16/22 14:30 14:30 WBC 11.2 H RBC 4.28 Hgb 13.4 Hct 40.3 MCV 94.2 MCH 31.3 MCHC 33.3 RDW Std Deviation 38.6 RDW Coeff of Shadia 11.3 L Plt Count 234 MPV 10.3 Immature Gran % (Auto) 0.400 Neut % (Auto) 77.3 H Lymph % (Auto) 14.1 L Dawes % (Auto) 5.0 Eos % (Auto) 2.3 Baso % (Auto) 0.9 Absolute Neuts (auto) 8.7 H Absolute Lymphs (auto) 1.59 Nucleated RBC % 0 Sodium 139 Potassium 3.8 Chloride 104 Carbon Dioxide 31.0 Anion Gap 4 L BUN 15 Creatinine 1.26 H Estim Creat Clear Calc 33.68 Est GFR (MDRD) Af Amer 55 L Est GFR (MDRD) Non-Af 46 L BUN/Creatinine Ratio 11.9 Glucose 162 H Calcium 9.3 Total Bilirubin 1.40 H AST 26 ALT 32 Alkaline Phosphatase 51 Total Protein 7.1 Albumin 3.5 Globulin 3.6 Albumin/Globulin Ratio 1.0 Lipase 157 Radiography Diagnostic Testing: Clinical Impression(s) from Imaging Studies Abdomen/Pelvis CT 08/16/22 14:30 IMPRESSION: Findings in keeping with a noncomplicated sigmoid diverticulitis. Scattered diverticula are also seen in the right hemicolon. Electronically Signed: Clayton Bishop MD at 15:34 EDT , Discharge Plan Triage Chief Complaint: Abd Pain ED Provider: Kash Medel Dx/Rx/DC Orders Clinical Impression: Sigmoid diverticulitis, BMI 31.0-31.9,adult Instructions: ED Diverticulitis Prescriptions: New metronidazole [metronidazole] 500 mg tablet 500 mg PO Q6H Qty: 40 0RF ciprofloxacin HCl [ciprofloxacin HCl] 500 mg tablet 500 mg PO BID Qty: 20 0RF No Action fexofenadine [Allergy Relief (fexofenadine)] 180 mg tablet 180 mg PO DAILY Label Comments: TAKE 1 TABLET BY MOUTH EVERY DAY hydrocodone-acetaminophen 5-325 mg tablet 1 tab PO Q4H PRN (Reason: pain) 3 Days Qty: 7 0RF Primary Care Provider: Patience Olivas Referrals: Patience Olivas DO [Primary Care Provider] - 3-5 Days Disposition Disposition: Home, Self Care
--- NOTE | 2022-08-16 14:30 | CT_ITS ---
STUDY: CT ABDOMEN AND PELVIS WITHOUT CONTRAST REASON FOR EXAM: Female, 61 years old. LLQ PAIN WITH HISTORY OF DIVERTICULITIS RADIATION DOSAGE (If Supplied By Facility): CTDIvol = ( 7.92 ) mGy, DLP = ( 391.68 ) mGycm TECHNIQUE: Transaxial images were obtained from the dome of the diaphragm to the symphysis pubis without oral contrast, and without intravenous contrast. Sagittal and coronal images were reconstructed. Individualized dose optimization techniques were used for this CT. COMPARISON: Comparison is made with prior study dated 03/12/2019. FINDINGS: The visualized lung bases are unremarkable. The visualized portions of the heart are within normal limits. Normal liver. Normal gallbladder and extrahepatic biliary system. Normal spleen. Normal pancreas. Normal bilateral adrenal glands. Normal right kidney. Normal left kidney. There is a small hiatal hernia. Normal small intestine. There is diverticulosis, with thickening of the colon wall, and pericolonic inflammation changes consistent with acute diverticulitis. The appendix is visualized and appears normal. There is scattered atherosclerotic calcification of the abdominal aorta, without a demonstrated aneurysm. Normal inferior vena cava. There is borderline retroperitoneal lymphadenopathy with enlarged nodes no greater than 10mm in the short axis diameter. Normal urinary bladder. Enlarged fibroid uterus. There is a small umbilical hernia containing fat. Normal osseous structures. CT/Abdomen/Pelvis without Cont IMPRESSION: Findings in keeping with a noncomplicated sigmoid diverticulitis. Scattered diverticula are also seen in the right hemicolon. Electronically Signed: Clayton Bishop MD at 15:34 EDT ,
[2022-08-16 14:47] LABS: Absolute Lymphocyte Count 1.59 X10^3/uL (0.83-4.51); Absolute Neutrophil Count 8.7 X10^3/uL (2.0-7.7); Basophil% 0.9 % (0-1); Eosinophil# 0.26 X10^3/uL; Eosinophils% 2.3 % (0-5); Hematocrit 40.3 % (37-47); Hemoglobin 13.4 g/dL (12.0-15.0); Lymphocyte # 1.59 X10^3/ul (0.83-4.51); Lymphocyte % 14.1 % (19-41); Mean Corp Hgb Conc 33.3 g/dL (32-36); Mean Corpuscular Hgb 31.3 pg (27.0-32.0); Mean Corpuscular Volume 94.2 fL (81-99); Mean Platelet Vol. 10.3 fl (6.2-12.0); Monocyte# 0.56 X10^3/uL; NRBC Flagged by Analyzer 0 % (0-5); Neutrophil # 8.68 X10^3/uL (2.7-7.7); Neutrophil % 77.3 % (47-70); Platelet Count 234 K/mm3 (150-450); RBC Distribution Width CV 11.3 % (11.6-14.6); RBC Distribution Width SD 38.6 fl (35.1-43.9); Red Blood Count 4.28 M/mm3 (4.2-5.4); White Blood Count 11.2 K/mm3 (4.4-11.0)
[2022-08-16] MEDS: Ondansetron 4 MG/2 ML Vial IV (14:48)
[2022-08-16] MEDS: 0.9% Normal Saline 1,000 ML 1000 ML IV (14:48)
[2022-08-16] MEDS: Morphine 4 MG/ML Syringe IV (14:48)
[2022-08-16 15:05] LABS: AST(SGOT) 26 U/L (15-37); Alanine Aminotransfer ALT/SGPT 32 U/L (13-56); Albumin, Serum 3.5 g/dL (3.2-5.0); Alkaline Phosphatase 51 U/L (45-117); Anion Gap 4 (5-15); BUN 15 mg/dL (7-18); BUN/Creat Ratio 11.9 RATIO (10-20); Calcium,Total 9.3 mg/dL (8.5-10.1); Chloride 104 mmol/L (98-107); Creatinine, Serum 1.26 mg/dL (0.55-1.02); EST Glomerular Filtration Rate 46 mL/min (>60); Est Glom Filt Rate - Afr Amer 55 mL/min (>60); Estimated Creatinine Clearance 33.68 ml/min; Globulin 3.6 g/dL (2.2-4.2); Glucose 162 mg/dL (74-106); Lipase 157 U/L (73-393); Potassium 3.8 mmol/L (3.5-5.1); Protein, Total 7.1 g/dL (6.4-8.2); Sodium Level 139 mmol/L (136-145)
[2022-08-16 15:33] LABS: Mucous, Urine 0 SEEN /hpf (<or=2+); Red Blood Cells-Urine 0 SEEN /hpf (0-5); White Blood Cells 0 SEEN /hpf (0-5)
[2022-08-16 15:40] LABS: Color, Urine Straw (Yellow); Glucose, Dipstick Normal (Normal); Ketone-Dipstick Negative (Negative); Leukocyte Esterase-Dipstick Negative /ul (Negative); Nitrite-Dipstick Negative (Negative); Occult Blood-Urine Negative /ul (Negative); Protein-Dipstick Negative (Negative); Specific Gravity, Urine 1.005 (1.002-1.030); Urine Bilirubin Dipstick Negative (Negative); Urine Clarity Clear (Clear); Urine Urobilinogen Normal (Normal)
[2022-08-16 15:56] LABS: Bacteria RARE /hpf (None Seen); Squamous Epithelial Cells - UA 0-5 SEEN /hpf (5-10)
[2022-08-16] MEDS: Ciprofloxacin 500 MG Tablet PO (16:02)
[2022-08-16] MEDS: metroNIDAZOLE 500 MG Tablet PO (16:02)
[2022-08-16 16:03] VITALS: BP 148/79; PULSE 75; RESP 16; O2SAT 98
== END 2022-08-16 16:05 | disposition home or self-care (01) ==
PROVIDERS: Emergency Provider Emergency Medicine; PCP Internal Medicine; Visit Provider Emergency Medicine
DX: K57.32 Diverticulitis of large intestine without perforation or abscess without bleeding (principal); M54.9 Dorsalgia, unspecified; Z79.899 Other long term (current) drug therapy
CPT/HCPCS: 74176; 80053; 81001; 83690; 85025; 96361; 96374; 96375; 99284; J7030; A4216; J2405

== ENCOUNTER → 2022-10-14 | Outpatient (CLI) | payer BC, SELFPAY ==
--- NOTE | 2022-10-14 07:28 | US_ITS ---
STUDY: ABDOMINAL ULTRASOUND - RIGHT UPPER QUADRANT REASON FOR VISIT: Female, 61 years old FATTY LIVER TECHNIQUE: Ultrasound evaluation of the right upper quadrant was performed with real-time and static meyer-scale imaging. TECHNICAL QUALITY: Adequate. COMPARISON: Comparison is made with prior study dated 04/18/2022. FINDINGS: Liver: The liver measures 13.2 cm. There is a heterogeneous echogenicity of the liver. The bile ducts are within normal limits. There is hepatic color flow. The direction of portal flow is hepatopetal. There is no demonstrated mass lesion. Gallbladder: Normal distended gallbladder. The gallbladder wall measures 3 mm. There is a negative sonographic Curtis''s sign. There is no pericholecystic fluid. There are no gallstones. Common Bile Duct (C.B.D.): The common bile duct measures 3 mm. Pancreas: Normal size of the head, body of the pancreas. The tail portion is obscured due to overlying bowel gas. There is normal echogenicity of the pancreas. There is no demonstrated pancreatic mass or cyst. Right Kidney: Normal size of the right kidney. The right kidney measures 10.1 cm x 4.7 cm x 4.3 cm. Normal renal cortex. The right cortex measures 1.4 cm. There is no demonstrated renal mass or cyst. There is no right hydronephrosis. US/Abdomen Limited IMPRESSION: Heterogeneous echotexture of the liver suggests fatty infiltration. Electronically Signed: Clayton Bishop MD at 8:55 EST ,
--- NOTE | 2022-10-14 07:29 | US_ITS ---
STUDY: ABDOMINAL ULTRASOUND - ELASTOGRAPHY REASON FOR VISIT: Female, 61 years old. Fatty infiltration of the liver. TECHNIQUE: Liver stiffness measurements were obtained on a [employer] RS 85 ultrasound machine using a CA 1-7 probe following the SRU guidelines. 3 measurements were obtained using a 2-D-SWE method. The IQR/M was 13% suggesting a quality data set. TECHNICAL QUALITY: Adequate. COMPARISON: Comparison is made with prior study done earlier today. FINDINGS: Liver: Fatty infiltration of the liver. Median liver stiffness measured 15.6 kPa. US/Elastography Parenchyma/Organ IMPRESSION: Liver stiffness measures 15.6 kPa compatible with F3-F4 (Moderate to severe liver fibrosis) Metavir score. Electronically Signed: Clayton Bishop MD at 8:56 EST ,
== END | disposition home or self-care (01) ==
LOC: US 07:27
PROVIDERS: PCP Internal Medicine; Referring Provider Internal Medicine Medical Oncology; Visit Provider Internal Medicine Medical Oncology
DX: K76.0 Fatty (change of) liver, not elsewhere classified (principal); R79.89 Other specified abnormal findings of blood chemistry
CPT/HCPCS: 76705; 76981

== ENCOUNTER 2022-11-16 12:30 | Inpatient (IN) | payer BC, SELFPAY ==
[2022-11-16 12:31] VITALS: BP 126/105; PULSE 84; RESP 14; TEMP 36.2; O2SAT 100; BMI 31.2
--- NOTE | 2022-11-16 12:38 | CT_ITS ---
We are attempting to reach an attending provider to discuss findings. An addendum with communication details will be sent when the communication is complete. EXAM: CT ABDOMEN AND PELVIS WITHOUT INTRAVENOUS CONTRAST CLINICAL INDICATION: Abdominal pain. TECHNIQUE: Helically acquired images were obtained of the abdomen and pelvis without intravenous contrast. This CT exam was performed using one or more of the following dose reduction techniques: automated exposure control, adjustment of the mA and/or kV according to patient size, and/or use of iterative reconstruction technique. This report was created using [employer] report Glyde technology. RADIATION DOSE: CTDIvol = 7.61 mGy, DLP = 355.41 mGy-cm COMPARISON: CT abdomen and pelvis without contrast 08/16/2022. FINDINGS: LOWER THORAX: Unremarkable. Lung bases are clear. No cardiomegaly. No significant pericardial effusion. ABDOMEN: LIVER: Unremarkable. Homogeneous. GALLBLADDER AND BILE DUCTS: Unremarkable. No calcified gallstones. No gallbladder distention or wall edema. No intra- or extrahepatic biliary ductal dilation. PANCREAS: Unremarkable. No focal cystic mass. SPLEEN: Unremarkable. Normal size without focal cystic or solid mass. ADRENALS: Unremarkable. No nodules. KIDNEYS AND URETERS: Unremarkable. Normal renal size and position. No hydronephrosis. STOMACH AND BOWEL: Scattered colonic diverticulosis without diverticulitis. No stomach or bowel distention. PELVIS: APPENDIX: Normal. BLADDER: Unremarkable. REPRODUCTIVE: Unremarkable as visualized. No mass. ABDOMEN and PELVIS: INTRAPERITONEAL SPACE: Small pneumoperitoneum underneath the right hemidiaphragm and overlying the anterior liver surface. No ascites or other fluid collection. BONES/JOINTS: Unremarkable. No suspicious lytic or blastic abnormality. SOFT TISSUES: Unremarkable. No discrete abdominal or pelvic wall hernia. VASCULATURE: Unremarkable. Abdominal aorta is non-dilated. LYMPH NODES: Unremarkable. No enlarged lymph nodes. CT/Abdomen/Pelvis without Cont IMPRESSION: 1. Small pneumoperitoneum underneath the right hemidiaphragm and overlying the liver surface worrisome for perforated bowel unless there was recent laparoscopy. This is a new finding when compared to 08/16/2022. 2. Scattered colonic diverticulosis without diverticulitis. 3. Interval improvement of acute diverticulitis of the lower descending colon/sigmoid colon junction when compared to 08/16/2022. Electronically Signed: Gui Rowan MD at 13:36 EST ,
--- NOTE | 2022-11-16 12:39 | ED.VIS.GI ---
HPI HPI - GI History of Present Illness Chief Complaint: Abd Pain Detail of Chief Complaint: Abdominal pain Informant: patient Narrative Narrative: Patient presents with abdominal pain that she has had off and on for the last 2 weeks. Patient has history of diverticulitis and states she is can let it go until the pain became more severe last evening. She describes left lower quadrant pain. She has had some nausea but no vomiting. She denies urinary symptoms of dysuria or urgency or frequency. Patient did have a fever last night up to 100.6. Patient complained of some chills. Patient does have history of diverticulosis and thinks it might be her diverticulitis flaring up. Patient denies blood in her stool. PFSH [facility] Medical History Bronchitis Carpal tunnel syndrome Diverticulitis Hair loss High triglycerides Low HDL (under 40) Varicose vein of leg Home Medications fexofenadine 180 mg tablet (Allergy Relief (fexofenadine)) 180 mg PO DAILY 09/04/21 [History Last Taken Unknown] hydrocodone-acetaminophen 5-325mg 5mg-325mg 1 tab PO Q4H PRN pain 3 days #7 tabs 12/30/21 [Rx Last Taken Unknown] ciprofloxacin HCl 500 mg tablet 500 mg PO BID #20 TABLETS 08/16/22 [Rx Last Taken Unknown] metronidazole 500 mg tablet 500 mg PO Q6H #40 tabs 08/16/22 [Rx Last Taken Unknown] azithromycin 250 mg tablet 250 mg PO 09/18/22 [History Last Taken Unknown] denosumab 60 mg/mL subcutaneous syringe (Prolia) 60 mg subcut [id number] 09/18/22 [History Last Taken Unknown] omeprazole 20 mg capsule,delayed release ea PO 09/18/22 [History Last Taken Unknown] Allergy/AdvReac Type Severity Reaction Status Date / Time No Known Allergies Allergy Verified 11/16/22 12:32 Surgical History History of carpal tunnel surgery Hx of rotator cuff surgery Social History Smoking Status: Never smoker ROS ROS ED Review of Systems ROS Unobtainable: other Constitutional Constitutional ED: Reports chills, fever(s) and lethargy; Denies sweats or weight loss Eyes Eyes: Denies blurry vision, change in vision or diplopia ENT ENT ED: Denies rhinorrhea or sore throat Cardiovascular Cardiovascular: Denies chest pain, orthopnea or racing heartbeat Respiratory/Chest Respiratory/Chest: Denies cough, dyspnea, dyspnea on exertion, orthopnea or sputum Gastrointestinal Gastrointestinal: Reports abdominal pain; Denies diarrhea, nausea or vomiting Genitourinary Genitourinary ED: Denies dysuria, hematuria or urinary frequency Musculoskeletal Musculoskeletal: Denies arthralgias, back pain, myalgias or neck pain Integumentary Denies abscess, Abrasions or rash Neurologic Neurologic: Denies headache(s) or weakness Psychiatric Psychiatric: Denies anxiety, depression or suicidal thoughts Endocrine Endocrinology: Denies polydipsia, polyphagia or polyuria Hematologic/Lymphatic Hematologic/Lymphatic: Denies easy bleeding, easy bruising or lymphadenopathy Allergic/Immunologic Allergic/Immunologic ED: Denies mouth swelling, tongue swelling or urticaria EXAM Physical Exam Const Vital Signs: 11/16/22 12:31 Temperature 97.1 F L Temperature Source Temporal Pulse Rate 84 Respiratory Rate 14 Blood Pressure 126/105 H Blood Pressure Mean 112 Pulse Ox 100 Oxygen Delivery Method Room Air Positive well nourished and well developed General Appearance ED: well developed and NAD HEENT Reports TM's clear and moist mucous membranes normocephalic and atraumatic; Negative for trauma or tenderness Tympanic Membrane ED: Yes TM's clear Eyes PERRL and EOMs intact bilaterally General Eye ED: Negative for pale conjunctiva or scleral icterus Neck no lymphadenopathy, supple and no JVD General: Negative for tenderness Chest Wall inspection of chest normal and palpation of chest normal Chest: Negative for tenderness Resp normal respiratory effort and clear to auscultation bilaterally Effort and Inspection: Negative for respiratory distress or pain with movement Auscultation: Negative for rhonchi, wheezes or diminished lung sounds Cardio regular rate, regular rhythm, S1 normal heart sound, S2 normal heart sound and no murmurs Peripheral Pulses: pulses 2+ throughout GI normal to inspection, nondistended, normoactive bowel sounds, soft to palpation, non-distended and no masses GI Narrative: Tenderness to palpation over left lower quadrant with guarding. There is no rebound, rigidity, or peritoneal signs Back/Spine no CVA tenderness and no thoracic nor lumbar tenderness Extremity normal to inspection General Extremety ED: Negative for edema General Extremity: Negative for edema Neuro oriented x3, CN's II-XII intact bilaterally, no sensory deficits noted and gait normal Sensorium / Orientation: awake, alert, oriented to person, oriented to place and oriented to time Motor Exam: strength 5/5 throughout and strength abnormal Psych mental status grossly normal Skin no rashes or lesions noted and no wounds MDM MDM MDM Narrative Medical decision making narrative: IV line established on arrival. Patient was medicated with morphine and Zofran. In the differential was diverticulitis versus kidney stone versus bowel obstruction versus bowel perforation versus other. CBC with differential showed a white count of 11.0. Lactate was normal. Chemistries unremarkable. Urinalysis unremarkable. CT scan of the abdomen pelvis without contrast showed pneumoperitoneum without evidence of diverticulitis. Case was discussed with general surgeon on-call who recommended Zosyn IV. Patient will be admitted under Dr. Cherelle Golden's care. Patient admitted for perforated bowel. Lab Data Attestation: I reviewed the patient's lab results. Labs: Laboratory Results - last 24 hr 11/16/22 11/16/22 11/16/22 12:30 12:30 12:30 WBC 11.0 RBC 4.64 Hgb 14.2 Hct 43.5 MCV 93.8 MCH 30.6 MCHC 32.6 RDW Std Deviation 39.3 RDW Coeff of Shadia 11.5 L Plt Count 273 MPV 9.9 Immature Gran % (Auto) 0.400 Neut % (Auto) 70.8 H Lymph % (Auto) 18.0 L [place] % (Auto) 8.1 Eos % (Auto) 2.2 Baso % (Auto) 0.5 Absolute Neuts (auto) 7.8 H Absolute Lymphs (auto) 1.97 Nucleated RBC % 0 Sodium 137 Potassium 4.1 Chloride 103 Carbon Dioxide 30.0 Anion Gap 4 L BUN 18 Creatinine 1.02 Estim Creat Clear Calc 41.08 Est GFR (MDRD) Af Amer 71 Est GFR (MDRD) Non-Af 58 L BUN/Creatinine Ratio 17.6 Glucose 112 H Lactic Acid 0.8 Calcium 9.5 Urine Color Urine Clarity Urine pH Ur Specific [place] Urine Protein Urine Glucose (UA) Urine Ketones Urine Occult Blood Urine Nitrite Urine Bilirubin Urine Urobilinogen Ur Leukocyte Esterase Urine RBC Urine WBC Ur Squamous Epith Cells Urine Bacteria Urine Mucus 11/16/22 12:45 WBC RBC Hgb Hct MCV MCH MCHC RDW Std Deviation RDW Coeff of Shadia Plt Count MPV Immature Gran % (Auto) Neut % (Auto) Lymph % (Auto) [place] % (Auto) Eos % (Auto) Baso % (Auto) Absolute Neuts (auto) Absolute Lymphs (auto) Nucleated RBC % Sodium Potassium Chloride Carbon Dioxide Anion Gap BUN Creatinine Estim Creat Clear Calc Est GFR (MDRD) Af Amer Est GFR (MDRD) Non-Af BUN/Creatinine Ratio Glucose Lactic Acid Calcium Urine Color Yellow Urine Clarity Clear Urine pH 7.0 Ur Specific [place] 1.010 Urine Protein Negative Urine Glucose (UA) Normal Urine Ketones Negative Urine Occult Blood Negative Urine Nitrite Negative Urine Bilirubin Negative Urine Urobilinogen Normal Ur Leukocyte Esterase 25 H Urine RBC 0 SEEN Urine WBC 0-5 SEEN Ur Squamous Epith Cells 0-5 SEEN Urine Bacteria 1+ Urine Mucus 0 SEEN Radiography Diagnostic Testing: Clinical Impression(s) from Imaging Studies Abdomen/Pelvis CT 11/16/22 12:38 IMPRESSION: 1. Small pneumoperitoneum underneath the right hemidiaphragm and overlying the liver surface worrisome for perforated bowel unless there was recent laparoscopy. This is a new finding when compared to 08/16/2022. 2. Scattered colonic diverticulosis without diverticulitis. 3. Interval improvement of acute diverticulitis of the lower descending colon/sigmoid colon junction when compared to 08/16/2022. Electronically Signed: Gui Rowan MD at 13:36 EST Reading Location ID and State: [address] [place] [address] , Service support , ADDENDUM: 11/16/22 1346 IMPRESSION: 1. Small pneumoperitoneum underneath the right hemidiaphragm and overlying the liver surface worrisome for perforated bowel unless there was recent laparoscopy. This is a new finding when compared to 08/16/2022. 2. Scattered colonic diverticulosis without diverticulitis. 3. Interval improvement of acute diverticulitis of the lower descending colon/sigmoid colon junction when compared to 08/16/2022. N.B. : The above Results were Read Back by Gui Rowan MD to Micheal Alvarez MD, and understanding confirmed on 11/16/2022 13:39:35 (ET). Electronically Signed: Gui Rowan MD at 13:36 EST , Discharge Plan Triage Chief Complaint: Abd Pain ED Provider: Micheal Coronado Dx/Rx/DC Orders Clinical Impression: Pneumoperitoneum, Abdominal pain, Perforated bowel Prescriptions: No Action azithromycin 250 mg tablet 250 mg PO Label Comments: TAKE 2 TABLETS BY MOUTH TODAY, THEN TAKE 1 TABLET DAILY FOR 4 DAYS omeprazole 20 mg capsule,delayed release(DR/EC) PO Label Comments: TAKE 1 CAPSULE BY MOUTH TWICE A DAY Prolia 60 mg/mL syringe 60 mg subcut [id number] fexofenadine [Allergy Relief (fexofenadine)] 180 mg tablet 180 mg PO DAILY Label Comments: TAKE 1 TABLET BY MOUTH EVERY DAY hydrocodone-acetaminophen 5-325 mg tablet 1 tab PO Q4H PRN (Reason: pain) 3 Days Qty: 7 0RF metronidazole [metronidazole] 500 mg tablet 500 mg PO Q6H Qty: 40 0RF ciprofloxacin HCl [ciprofloxacin HCl] 500 mg tablet 500 mg PO BID Qty: 20 0RF Primary Care Provider: Patience Olivas Referrals: Patience Olivas DO [Primary Care Provider] - Disposition Disposition: Acute Care [facility]
[2022-11-16 12:51] LABS: Mucous, Urine 0 SEEN /hpf (<or=2+); Red Blood Cells-Urine 0 SEEN /hpf (0-5)
[2022-11-16 12:53] LABS: Color, Urine Yellow (Yellow); Glucose, Dipstick Normal (Normal); Ketone-Dipstick Negative (Negative); Leukocyte Esterase-Dipstick 25 /ul (Negative); Nitrite-Dipstick Negative (Negative); Occult Blood-Urine Negative /ul (Negative); Protein-Dipstick Negative (Negative); Urine Bilirubin Dipstick Negative (Negative); Urine Clarity Clear (Clear); Urine Urobilinogen Normal (Normal)
[2022-11-16] MEDS: 0.9% Normal Saline 1,000 ML 125 ML IV ×2 (12:53→21:00)
[2022-11-16] MEDS: Ondansetron 4 MG/2 ML Vial IV ×2 (12:53→20:59)
[2022-11-16] MEDS: Morphine 4 MG/ML Syringe IV ×3 (12:54→21:00)
[2022-11-16 13:01] LABS: Absolute Lymphocyte Count 1.97 X10^3/uL (0.83-4.51); Absolute Neutrophil Count 7.8 X10^3/uL (2.0-7.7); Basophil# 0.05 X10^3/uL; Basophil% 0.5 % (0-1); Eosinophil# 0.24 X10^3/uL; Eosinophils% 2.2 % (0-5); Hematocrit 43.5 % (37-47); Hemoglobin 14.2 g/dL (12.0-15.0); Lymphocyte # 1.97 X10^3/ul (0.83-4.51); Mean Corp Hgb Conc 32.6 g/dL (32-36); Mean Corpuscular Hgb 30.6 pg (27.0-32.0); Mean Corpuscular Volume 93.8 fL (81-99); Mean Platelet Vol. 9.9 fl (6.2-12.0); Monocyte# 0.89 X10^3/uL; Monocyte% 8.1 % (0-10); NRBC Flagged by Analyzer 0 % (0-5); Neutrophil # 7.76 X10^3/uL (2.7-7.7); Neutrophil % 70.8 % (47-70); Platelet Count 273 K/mm3 (150-450); RBC Distribution Width CV 11.5 % (11.6-14.6); RBC Distribution Width SD 39.3 fl (35.1-43.9); Red Blood Count 4.64 M/mm3 (4.2-5.4)
[2022-11-16 13:09] LABS: Bacteria 1+ /hpf (None Seen); Squamous Epithelial Cells - UA 0-5 SEEN /hpf (5-10); White Blood Cells 0-5 SEEN /hpf (0-5)
[2022-11-16 13:22] LABS: Anion Gap 4 (5-15); BUN 18 mg/dL (7-18); BUN/Creat Ratio 17.6 RATIO (10-20); Calcium,Total 9.5 mg/dL (8.5-10.1); Chloride 103 mmol/L (98-107); Creatinine, Serum 1.02 mg/dL (0.55-1.02); EST Glomerular Filtration Rate 58 mL/min (>60); Est Glom Filt Rate - Afr Amer 71 mL/min (>60); Estimated Creatinine Clearance 41.08 ml/min; Glucose 112 mg/dL (74-106); Potassium 4.1 mmol/L (3.5-5.1); Sodium Level 137 mmol/L (136-145)
[2022-11-16 13:25] LABS: Lactic Acid 0.8 mmol/L (0.4-1.9)
[2022-11-16 14:11] VITALS: BP 125/87; PULSE 85; RESP 15; TEMP 36.7; O2SAT 99
--- NOTE | 2022-11-16 14:16 | NURSING ---
MED SURG TOO HUYNH PAIN, PNEUMONPERITONEUM, PERFORATED BOWEL
--- NOTE | 2022-11-16 15:26 | NURSING ---
SURGEON FOR ER
[2022-11-16 15:36] VITALS: BMI 31.2
[2022-11-16 15:44] VITALS: BP 122/63; PULSE 77; RESP 18; TEMP 36.8; O2SAT 98
--- NOTE | 2022-11-16 20:40 | HP.PCM.SX_ITS ---
HPI - General General Date of Admission: 11/16/22 Date of Service: 11/16/22 Chief Complaint: left sided abdominal pain HPI Narrative JABARI ROTH, is a 62 F who presents with left sided abdominal pain for about two weeks. However, the pain became severe starting Friday night and then prompted visit to ED today. She describes the pain as sharp and similar to the pain when she presented with acute diverticulitis years ago. She denies fevers. She has had nausea. She denies emesis. She states that she has no appetite and does not feel hungry despite not eating for the past two days. She notes chills on Friday night and low grade temperature elevation of 100.6F She notes no changes in her bowel movements. ED workup revealed pneumoperitoneum - patient was admitted to the hospital. Presently, the patient denies abdominal pain if she is lying still. She notes no colon cancer in her family. She last had a colonoscopy about 4 years ago. She was treated for a bout of bronchitis in October. She denies previous abdominal surgeries. [facility]LY [facility], [facility] Medical History Bronchitis Carpal tunnel syndrome Diverticulitis Hair loss High triglycerides Low HDL (under 40) Varicose vein of leg Home Medications fexofenadine 180 mg tablet (Allergy Relief (fexofenadine)) 180 mg PO DAILY ALLERGIES 09/04/21 [History Last Taken Unknown] denosumab 60 mg/mL subcutaneous syringe (Prolia) 60 mg subcut [id number] [facility] 09/18/22 [History Last Taken Unknown] omeprazole 20 mg capsule,delayed release 20 mg PO DAILY PRN GERD 09/18/22 [History Last Taken Unknown] ascorbic acid (vitamin C) 2,000 mg tablet,extended release 2,000 mg PO DAILY SUPPLEMENT 11/16/22 [History Last Taken Unknown] calcium carbonate 600 mg calcium (1,500 mg) tablet (Calcium) 1,200 mg PO DAILY SUPPLEMENT 11/16/22 [History Last Taken Unknown] cholecalciferol (vitamin D3) 125 mcg (5,000 unit) tablet (Vitamin D3) 5,000 unit PO DAILY SUPPLEMENT 11/16/22 [History Last Taken Unknown] Allergy/AdvReac Type Severity Reaction Status Date / Time No Known Allergies Allergy Verified 11/16/22 12:32 Surgical History History of carpal tunnel surgery Hx of rotator cuff surgery Social History Smoking Status: Never smoker ROS Constitutional Constitutional: Reports chills; Denies fever(s) Eyes Eyes: Denies blurry vision ENT HEENT: Denies dysphagia Cardiovascular Cardiovascular: Denies chest pain at rest Respiratory/Chest Respiratory/Chest: Denies dyspnea or productive cough Gastrointestinal Gastrointestinal: Reports systems reviewed and no addt'l complaints, except as documented; Denies constipation, diarrhea or rectal bleeding Genitourinary Genitourinary: Denies dysuria or hematuria Musculoskeletal Musculoskeletal: Denies abnormal gait Integumentary Integumentary: Denies jaundice Neurologic Neurologic: Denies abnormal gait Vital Signs Vital Signs Vital Signs: 11/16/22 12:31 11/16/22 14:11 11/16/22 15:44 Temperature 97.1 F L 98.1 F 98.3 F Temperature Source Temporal Temporal Oral Pulse Rate 84 85 77 Respiratory Rate 14 15 18 Respiratory Effort Respiratory Depth Respiratory Pattern Blood Pressure 126/105 H 125/87 H 122/63 H Blood Pressure Mean 112 99 82 Blood Pressure Source Monitor Blood Pressure Position Semi-Fowlers Blood Pressure Location Right Arm Pulse Ox 100 99 98 Oxygen Delivery Method Room Air Room Air Room Air 11/16/22 16:18 Temperature Temperature Source Pulse Rate Respiratory Rate Respiratory Effort Normal Respiratory Depth Normal Respiratory Pattern Normal Blood Pressure Blood Pressure Mean Blood Pressure Source Blood Pressure Position Blood Pressure Location Pulse Ox Oxygen Delivery Method Room Air Weight Weight: 72.575 kg Body Mass Index (BMI) 31.2 Physical Exam Const oriented x3 and no apparent distress Resp normal respiratory effort Cardio regular rate GI GI Narrative: abdomen is soft but tender to palpation in the left side with rebound, no contralateral tenderness to deep palpation Extremity no clubbing, cyanosis or edema Results Medical Records Data Attestation: I reviewed the patient's medical records Lab / Micro Data Attestation: I reviewed the patient's lab results. Result Diagrams: 11/16/22 12:30 11/16/22 12:30 Labs: Laboratory Results - last 24 hr 11/16/22 12:30: WBC 11.0, RBC 4.64, Hgb 14.2, Hct 43.5, MCV 93.8, MCH 30.6, MCHC 32.6, RDW Std Deviation 39.3, RDW Coeff of Shadia 11.5 L, Plt Count 273, MPV 9.9, Immature Gran % (Auto) 0.400, Neut % (Auto) 70.8 H, Lymph % (Auto) 18.0 L, [place] % (Auto) 8.1, Eos % (Auto) 2.2, Baso % (Auto) 0.5, Absolute Neuts (auto) 7.8 H, Absolute Lymphs (auto) 1.97, Nucleated RBC % 0 11/16/22 12:30: Lactic Acid 0.8 11/16/22 12:30: Sodium 137, Potassium 4.1, Chloride 103, Carbon Dioxide 30.0, Anion Gap 4 L, BUN 18, Creatinine 1.02, Estim Creat Clear Calc 41.08, Est GFR (MDRD) Af Amer 71, Est GFR (MDRD) Non-Af 58 L, BUN/Creatinine Ratio 17.6, Glucose 112 H, Calcium 9.5 11/16/22 12:45: Urine Color Yellow, Urine Clarity Clear, Urine pH 7.0, Ur Specific [place] 1.010, Urine Protein Negative, Urine Glucose (UA) Normal, Urine Ketones Negative, Urine Occult Blood Negative, Urine Nitrite Negative, Urine Bilirubin Negative, Urine Urobilinogen Normal, Ur Leukocyte Esterase 25 H, Urine RBC 0 SEEN, Urine WBC 0-5 SEEN, Ur Squamous Epith Cells 0-5 SEEN, Urine Bacteria 1+, Urine Mucus 0 SEEN Radiology Impression Abdomen/Pelvis CT 11/16/22 12:38 IMPRESSION: 1. Small pneumoperitoneum underneath the right hemidiaphragm and overlying the liver surface worrisome for perforated bowel unless there was recent laparoscopy. This is a new finding when compared to 08/16/2022. 2. Scattered colonic diverticulosis without diverticulitis. 3. Interval improvement of acute diverticulitis of the lower descending colon/sigmoid colon junction when compared to 08/16/2022. Electronically Signed: Gui Rowan MD at 13:36 EST , ADDENDUM: 11/16/22 1342 IMPRESSION: 1. Small pneumoperitoneum underneath the right hemidiaphragm and overlying the liver surface worrisome for perforated bowel unless there was recent laparoscopy. This is a new finding when compared to 08/16/2022. 2. Scattered colonic diverticulosis without diverticulitis. 3. Interval improvement of acute diverticulitis of the lower descending colon/sigmoid colon junction when compared to 08/16/2022. N.B. : The above Results were Read Back by Gui Rowan MD to Micheal Alvarez MD, and understanding confirmed on 11/16/2022 13:39:35 (ET). Electronically Signed: Gui Rowan MD at 13:36 EST , Assessment & Plan Assessment/Plan (1) Abdominal pain: PLAN: I have reviewed the patient's CT scan - there is scant air in the abdomen and the location is not anterior as she would have been lying supine This may represent previous microperforation as patient has had pain for the past two weeks for which she did not seek medical evaluation and her worst symptoms were Jero night She does not present with an elevated WBC (albeit, she has a left shift) and she is afebrile I believe that she has acute diverticulitis with microperforation - I would treat her with IV antibiotics/NPO/IV hydration and supportive care I do not believe that she requires urgent surgery at this point in time. I have explained the above to the patient and she understands
[2022-11-16] MEDS: Famotidine 200 MG/20 ML MDV 20 MG in 0.9% Normal Saline (Pres. free 8 ML 300 MG IV (20:59)
[2022-11-16] MEDS: 0.9% Saline Lock 10 ML Syringe IV (21:02)
[2022-11-16 21:15] VITALS: BP 116/67; PULSE 81; RESP 16; RESP 18; TEMP 37.1; O2SAT 99
[2022-11-17 03:45] VITALS: BP 97/54; PULSE 77; RESP 18; TEMP 36.9; O2SAT 96
[2022-11-17 03:58] VITALS: BP 97/54; PULSE 77; RESP 18; TEMP 36.9; O2SAT 97
[2022-11-17] MEDS: 0.9% Normal Saline 1,000 ML 125 ML IV ×3 (05:06→19:47)
[2022-11-17 05:20] LABS: Absolute Lymphocyte Count 1.68 X10^3/uL (0.83-4.51); Absolute Neutrophil Count 5.9 X10^3/uL (2.0-7.7); Basophil# 0.06 X10^3/uL; Basophil% 0.7 % (0-1); Eosinophil# 0.12 X10^3/uL; Eosinophils% 1.4 % (0-5); Hematocrit 37.3 % (37-47); Hemoglobin 11.9 g/dL (12.0-15.0); Lymphocyte # 1.68 X10^3/ul (0.83-4.51); Mean Corp Hgb Conc 31.9 g/dL (32-36); Mean Corpuscular Hgb 30.5 pg (27.0-32.0); Mean Corpuscular Volume 95.6 fL (81-99); Monocyte# 0.63 X10^3/uL; Monocyte% 7.5 % (0-10); NRBC Flagged by Analyzer 0 % (0-5); Neutrophil # 5.89 X10^3/uL (2.7-7.7); Platelet Count 209 K/mm3 (150-450); RBC Distribution Width CV 11.7 % (11.6-14.6); RBC Distribution Width SD 40.4 fl (35.1-43.9); White Blood Count 8.4 K/mm3 (4.4-11.0)
[2022-11-17 09:37] VITALS: BP 97/62; PULSE 65; RESP 18; TEMP 36.6; O2SAT 95
[2022-11-17] MEDS: Famotidine 200 MG/20 ML MDV 20 MG in 0.9% Normal Saline (Pres. free 8 ML 300 MG IV ×2 (09:40→21:44)
--- NOTE | 2022-11-17 10:40 | PN.SURG_ITS ---
Subjective Subjective patient states that she feels improved feeling a little hungry Objective Data Objective Data Vital Signs: Vital Signs Temp Pulse Resp BP Pulse Ox O2 Del Method 97.9 F 65 18 97/62 95 Room Air 11/17/22 09:37 11/17/22 09:37 11/17/22 09:37 11/17/22 09:37 11/17/22 09:37 11/17/22 09:45 Oxygen Delivery Method Room Air Weight: 72.575 kg Body Mass Index (BMI) 31.2 Intake & Output: Intake and Output for Last 24 Hours 11/15/22 11/16/22 11/17/22 23:59 23:59 23:59 Intake Total 1110 / 1110 1140 / 1140 Balance 1110 / 1110 1140 / 1140 Lab / Micro Data Attestation: I reviewed the patient's lab results. Result Diagrams: 11/17/22 05:04 11/16/22 12:30 Labs: Laboratory Results - last 24 hr 11/16/22 12:30: WBC 11.0, RBC 4.64, Hgb 14.2, Hct 43.5, MCV 93.8, MCH 30.6, MCHC 32.6, RDW Std Deviation 39.3, RDW Coeff of Shadia 11.5 L, Plt Count 273, MPV 9.9, Immature Gran % (Auto) 0.400, Neut % (Auto) 70.8 H, Lymph % (Auto) 18.0 L, Bartholomew % (Auto) 8.1, Eos % (Auto) 2.2, Baso % (Auto) 0.5, Absolute Neuts (auto) 7.8 H, Absolute Lymphs (auto) 1.97, Nucleated RBC % 0 11/16/22 12:30: Lactic Acid 0.8 11/16/22 12:30: Sodium 137, Potassium 4.1, Chloride 103, Carbon Dioxide 30.0, Anion Gap 4 L, BUN 18, Creatinine 1.02, Estim Creat Clear Calc 41.08, Est GFR (MDRD) Af Amer 71, Est GFR (MDRD) Non-Af 58 L, BUN/Creatinine Ratio 17.6, Glucose 112 H, Calcium 9.5 11/16/22 12:45: Urine Color Yellow, Urine Clarity Clear, Urine pH 7.0, Ur Specific [place] 1.010, Urine Protein Negative, Urine Glucose (UA) Normal, Urine Ketones Negative, Urine Occult Blood Negative, Urine Nitrite Negative, Urine Bilirubin Negative, Urine Urobilinogen Normal, Ur Leukocyte Esterase 25 H, Urine RBC 0 SEEN, Urine WBC 0-5 SEEN, Ur Squamous Epith Cells 0-5 SEEN, Urine Bacteria 1+, Urine Mucus 0 SEEN 11/17/22 05:04: WBC 8.4, RBC 3.90 L, Hgb 11.9 L, Hct 37.3, MCV 95.6, MCH 30.5, MCHC 31.9 L, RDW Std Deviation 40.4, RDW Coeff of Shadia 11.7, Plt Count 209, MPV 10.0, Immature Gran % (Auto) 0.400, Neut % (Auto) 70.0, Lymph % (Auto) 20.0, Bartholomew % (Auto) 7.5, Eos % (Auto) 1.4, Baso % (Auto) 0.7, Absolute Neuts (auto) 5.9, Absolute Lymphs (auto) 1.68, Nucleated RBC % 0 Radiography Diagnostic Testing: Radiology Impression Abdomen/Pelvis CT 11/16/22 12:38 IMPRESSION: 1. Small pneumoperitoneum underneath the right hemidiaphragm and overlying the liver surface worrisome for perforated bowel unless there was recent laparoscopy. This is a new finding when compared to 08/16/2022. 2. Scattered colonic diverticulosis without diverticulitis. 3. Interval improvement of acute diverticulitis of the lower descending colon/sigmoid colon junction when compared to 08/16/2022. Electronically Signed: Gui Rowan MD at 13:36 EST , ADDENDUM: 11/16/22 2266 IMPRESSION: 1. Small pneumoperitoneum underneath the right hemidiaphragm and overlying the liver surface worrisome for perforated bowel unless there was recent laparoscopy. This is a new finding when compared to 08/16/2022. 2. Scattered colonic diverticulosis without diverticulitis. 3. Interval improvement of acute diverticulitis of the lower descending colon/sigmoid colon junction when compared to 08/16/2022. N.B. : The above Results were Read Back by Gui Rowan MD to Micheal Alvarez MD, and understanding confirmed on 11/16/2022 13:39:35 (ET). Electronically Signed: Gui Rowan MD at 13:36 EST , Physical Exam Const alert and oriented x3 General Appearance: cooperative Neck supple Resp normal respiratory effort Effort and Inspection: able to speak in complete sentences GI GI Narrative: abdomen is soft, still cleaner on left side but improved, no peritoneal signs Assessment & Plan Assessment/Plan (1) Abdominal pain: PLAN: Diagnosis of acute diverticulitis with perforation but no evidence of generalized peritonitis Continue IV antibiotics Will advance diet to sips of clear liquids - primarily jello ambulation is encouraged Continue present therapy
[2022-11-17 17:02] VITALS: BP 108/61; PULSE 77; RESP 18; TEMP 36.5; O2SAT 94
[2022-11-17] MEDS: Morphine 4 MG/ML Syringe IV (17:12)
[2022-11-17] MEDS: Ondansetron 4 MG/2 ML Vial IV (17:13)
[2022-11-17 18:32] VITALS: BP 111/58; PULSE 62; RESP 16; TEMP 36.6; O2SAT 96
[2022-11-17] MEDS: 0.9% Saline Lock 10 ML Syringe IV (21:45)
[2022-11-17 22:00] VITALS: BP 110/54; PULSE 66; RESP 16; TEMP 36.6; O2SAT 98
[2022-11-18] MEDS: 0.9% Normal Saline 1,000 ML 125 ML IV ×3 (03:48→20:52)
[2022-11-18 03:49] VITALS: BP 112/63; PULSE 73; RESP 16; TEMP 36.6; O2SAT 96
--- NOTE | 2022-11-18 07:40 | PN.SURG_ITS ---
Subjective Subjective patient states that she has improved little by little with each day however, still pain with movement Objective Data Objective Data Vital Signs: Vital Signs Temp Pulse Resp BP Pulse Ox O2 Del Method 97.8 F 73 16 112/63 96 Room Air 11/18/22 03:49 11/18/22 03:49 11/18/22 03:49 11/18/22 03:49 11/18/22 03:49 11/18/22 03:49 Oxygen Delivery Method Room Air Weight: 72.575 kg Body Mass Index (BMI) 31.2 Intake & Output: Intake and Output for Last 24 Hours 11/16/22 11/17/22 11/18/22 23:59 23:59 23:59 Intake Total 1110 / 1110 3535.42 / 3535.42 1250 / 1250 Balance 1110 / 1110 3535.42 / 3535.42 1250 / 1250 Lab / Micro Data Attestation: I reviewed the patient's lab results. Result Diagrams: 11/17/22 05:04 11/16/22 12:30 Physical Exam Const alert and oriented x3 General Appearance: cooperative HEENT normocephalic Neck supple Resp normal respiratory effort Effort and Inspection: able to speak in complete sentences GI GI Narrative: abdominal examination - distillation operator helper in the left lower quadrant, slightly improved from yesterday but still with rebound, no guarding anymore Assessment & Plan Assessment/Plan (1) Abdominal pain: PLAN: clinical assessment - patient is slowly improving, but still requiring admission and IV antibiotics Maintain present level of clear liquids, though patient states that she does feel hungry this morning Continue present therapy
[2022-11-18] MEDS: 0.9% Saline Lock 10 ML Syringe IV ×3 (08:06→17:08)
[2022-11-18 09:50] VITALS: BP 108/58; PULSE 66; RESP 18; TEMP 36.6; O2SAT 99
[2022-11-18] MEDS: Famotidine 200 MG/20 ML MDV 20 MG in 0.9% Normal Saline (Pres. free 8 ML 300 MG IV ×2 (10:32→20:53)
--- NOTE | 2022-11-18 11:55 | CASEMGMT ---
PERLA CEBALLOS Assessment: Face to Face with pt for initial transition planning/care coordination assessment. RN LIN introduced self and role at [facility], pt voices understanding and consents to assessment. Pt is A/O x4 and answers all questions appropriately at this time. Pt sitting up in bed in no distress with at bedside. Care providers, pharmacy, and demographics verified/updated. Admitting Dx: acute diverticulitis, pneumoperitoneum PCP:Deisy Specialists:Pt denies Preferred Pharmacy: [facility] Insurance: [employer] Prescription Benefit: yes LNOK: Ham Tolentino, Living Arrangements: Pt lives with in a single story home with 1 step to enter. Pt reports she is I in ADL's and denies concerns at home. Transportation: Pt drives self and denies concerns with transportation. DME/HHC/SNF: Pt has a cane at home but does not use. Pt denies hx of HHC or SNF stays. Pt states no concerns with going home at time of dc. Pt states no further concerns/needs. CM to follow. Advised pt to ask CM if any further question/concerns/needs arise, voices understanding. Pt Goal: Home Plan: Home
[2022-11-18 15:30] VITALS: BP 117/64; PULSE 68; RESP 18; TEMP 36.6; O2SAT 98
[2022-11-18 20:46] VITALS: BP 126/63; PULSE 63; RESP 18; TEMP 37.2; O2SAT 99
[2022-11-19 03:00] VITALS: BP 120/63; PULSE 59; RESP 18; TEMP 37.1; O2SAT 99
[2022-11-19] MEDS: 0.9% Normal Saline 1,000 ML 125 ML IV ×3 (05:00→20:45)
--- NOTE | 2022-11-19 07:38 | PCM.PN.SRG ---
Subjective Subjective patient still with complaint of pain, albeit small decrease day by day Objective Data Objective Data Vital Signs: Vital Signs Temp Pulse Resp BP Pulse Ox O2 Del Method 98.7 F 59 L 18 120/63 99 Room Air 11/19/22 03:00 11/19/22 03:00 11/19/22 03:00 11/19/22 03:00 11/19/22 03:00 11/19/22 04:00 Oxygen Delivery Method Room Air Weight: 72.575 kg Body Mass Index (BMI) 31.2 Intake & Output: Intake and Output for Last 24 Hours 11/17/22 11/18/22 11/19/22 23:59 23:59 23:59 Intake Total 3535.42 / 3535.42 3560 / 3560 1050 / 1050 Balance 3535.42 / 3535.42 3560 / 3560 1050 / 1050 Lab / Micro Data Attestation: I reviewed the patient's lab results. Result Diagrams: 11/17/22 05:04 11/16/22 12:30 Physical Exam Const alert and oriented x3 General Appearance: cooperative HEENT normocephalic Neck supple Resp normal respiratory effort Effort and Inspection: able to speak in complete sentences GI GI Narrative: abdomen is soft, still with tenderness in LLQ, but no guarding Assessment & Plan Assessment/Plan (1) Abdominal pain: PLAN: Patient presents with clinically - acute diverticulitis which had been ongoing for two weeks, she has been having slow progression with some decreased in abdominal pain but not enough to consider discharge yet no surgical intervention required at this point continue present therapy
[2022-11-19 09:00] VITALS: BP 146/73; PULSE 57; RESP 18; TEMP 36.5; O2SAT 98
[2022-11-19] MEDS: Famotidine 200 MG/20 ML MDV 20 MG in 0.9% Normal Saline (Pres. free 8 ML 300 MG IV ×2 (10:46→22:19)
[2022-11-19] MEDS: Ensure Clear 120 ML Liquid PO ×3 (10:46→17:12)
[2022-11-19 15:00] VITALS: BP 119/63; PULSE 69; RESP 18; TEMP 36.4; O2SAT 100
--- NOTE | 2022-11-19 17:08 | NURSING ---
notified pt that pt is moving to [facility] due to [facility] closing. gave directions to , no further questions/concerns.
[2022-11-19] MEDS: Morphine 2 MG/ML Syringe IV ×2 (18:24→22:23)
[2022-11-19 22:16] VITALS: BP 104/62; PULSE 69; RESP 18; TEMP 36.8; O2SAT 99
[2022-11-19] MEDS: 0.9% Saline Lock 10 ML Syringe IV (22:24)
[2022-11-19 23:56] VITALS: BP 130/66; PULSE 64; RESP 18; TEMP 36.6; O2SAT 96
[2022-11-20 05:30] VITALS: BP 125/71; PULSE 59; RESP 18; TEMP 36.5; O2SAT 95
[2022-11-20] MEDS: 0.9% Normal Saline 1,000 ML 125 ML IV ×2 (05:34→14:32)
--- NOTE | 2022-11-20 07:22 | CT_ITS ---
STUDY: CT ABDOMEN AND PELVIS WITH CONTRAST REASON FOR EXAM: Female, 62 years old. other -- abdominal pain abdomen pain, diverticulitis, pneumoperitoneum on prior CT. RADIATION DOSAGE (If Supplied By Facility): CTDIvol = ( 21.05 ) mGy, DLP = ( 1054.18 ) mGycm TECHNIQUE: Transaxial images were obtained from the dome of the diaphragm to the symphysis pubis with oral contrast. Oral and amp; IV Gastrografin and amp; 100mL Isovue-370 was administered. Sagittal and coronal images were reconstructed. Individualized dose optimization techniques were used for this CT. COMPARISON: CT of abdomen and pelvis dated November 16, 2022 FINDINGS: Previously seen tiny amounts of free air under the hemidiaphragms is no longer present and has resolved. There is no free air or free fluid in the abdomen or pelvis on the current study. The bowel loops are opacified with oral contrast and there is no evidence of stricturing or narrowing or bowel obstruction. No abnormal dilatation is present. There is no contrast extravasation from the bowel loops. Redemonstration of moderate diverticulosis of the descending and rectosigmoid colon. A few scattered diverticula are are redemonstrated in the ascending and proximal transverse colonic regions. Chronic inflammatory stranding or scarring is seen in the left lower paracolic gutter adjacent to previously inflamed diverticula. The small bowel is normal. Normal stomach. The appendix is visualized and appears normal. The visualized lung bases are unremarkable. The visualized portions of the heart are within normal limits. Normal liver. Normal gallbladder and extrahepatic biliary system. Normal spleen. Normal pancreas. Normal bilateral adrenal glands. Normal right kidney. Normal left kidney. Normal visualized stomach. Normal small intestine. Normal colon. There is diffuse atherosclerotic calcification of the abdominal aorta, without a demonstrated aneurysm. Normal inferior vena cava. Normal retroperitoneum. Normal urinary bladder. Fibroid lobular uterus redemonstrated. Normal abdominal wall. There are diffuse degenerative changes of the visualized lumbar spine. CT/Abdomen/Pelvis WITH Contrast IMPRESSION: 1. Previously seen tiny amounts of free air under the hemidiaphragms is no longer present and has resolved. There is no free air or free fluid in the abdomen or pelvis on the current study. 2. The bowel loops are opacified with oral contrast and there is no evidence of stricturing or narrowing or bowel obstruction. No abnormal dilatation is present. There is no contrast extravasation from the bowel loops. 3. Chronic inflammatory stranding or scarring is seen in the left lower paracolic gutter adjacent to previously inflamed diverticula. Electronically Signed: Braulio Chin MD at 10:19 EST ,
--- NOTE | 2022-11-20 07:42 | PCM.PN.SRG ---
Subjective Subjective patient still with abdominal pain, though she states that she has been feeling better since admission Objective Data Objective Data Vital Signs: Vital Signs Temp Pulse Resp BP Pulse Ox O2 Del Method 97.7 F L 59 L 18 125/71 H 95 Room Air 11/20/22 05:30 11/20/22 05:30 11/20/22 05:30 11/20/22 05:30 11/20/22 05:30 11/20/22 05:30 Oxygen Delivery Method Room Air Weight: 72.575 kg Body Mass Index (BMI) 31.2 Intake & Output: Intake and Output for Last 24 Hours 11/18/22 11/19/22 11/20/22 23:59 23:59 23:59 Intake Total 3560 / 3560 3638.75 / 3638.75 1170 / 1170 Balance 3560 / 3560 3638.75 / 3638.75 1170 / 1170 Lab / Micro Data Attestation: I reviewed the patient's lab results. Result Diagrams: 11/17/22 05:04 11/16/22 12:30 Physical Exam Const alert and oriented x3 General Appearance: cooperative Neck supple Resp normal respiratory effort Effort and Inspection: able to speak in complete sentences GI GI Narrative: abdomen is soft but still with tenderness to deep palpation of left lower quadrant Assessment & Plan Assessment/Plan (1) Abdominal pain: PLAN: Will obtain repeat CT scan given patient persistent pain, despite several days of antibiotics
[2022-11-20 09:54] VITALS: BP 131/65; PULSE 58; RESP 16; TEMP 36.5; O2SAT 100
[2022-11-20] MEDS: 0.9% Saline Lock 10 ML Syringe IV (09:54)
[2022-11-20] MEDS: Ensure Clear 120 ML Liquid PO ×2 (09:54→14:33)
[2022-11-20] MEDS: Famotidine 200 MG/20 ML MDV 20 MG in 0.9% Normal Saline (Pres. free 8 ML 300 MG IV (09:54)
[2022-11-20 16:05] VITALS: BP 140/70; PULSE 69; RESP 16; TEMP 36.3; O2SAT 99
--- NOTE | 2022-11-20 16:53 | PCM.PN.BLA ---
Progress Note patient still with abdominal pain, however, CT scan looks good, suspect patient's perception of pain is more than usual she hasn't had a bowel movement in the hospital, but drinking plenty of water at home is encouraged will d/c to home
--- NOTE | 2022-11-20 16:55 | PCM.DC ---
Discharge Instructions Follow Up Care Test Results: Test results from this visit will be discussed in further detail at your follow-up appointment, if applicable. Discharge Plan Admission Admit Date/Time: 11/16/22 14:06 Attending Provider: Cherelle Golden Primary Care Provider: Patience Olivas Instructions Additional Instructions / Restrictions: Recommended pain control regimen - May take 600 mg ibuprofen (Motrin) and then in 3-4 hours, may take 650 mg acetaminophen (Tylenol), then in 3-4 hours may take 600 mg ibuprofen, then in 3-4 hours may take 650 mg acetaminophen and so on for 2-3 days May take narcotic pain medication for pain that is not controlled by above and at night for comfort through the night DIET LOW RESIDUE/FIBER DIET for two weeks Drink plenty of fluids - best is water. Ambulation is encouraged You will have prescriptions for pain medications and two types of antibiotics Please call my office for an appointment to see me in 2 weeks. Office number is If any questions, please call my office at and ask the cementing bulk material operator for the general surgery nurses desk Discharge Orders/Prescriptions Prescriptions: New hydrocodone-acetaminophen 5-325 mg tablet 1 tab PO Q8H 3 Days Qty: 9 0RF amoxicillin-pot clavulanate [Augmentin] 500-125 mg tablet 1 tab PO Q8H 10 Days Qty: 30 0RF metronidazole [Flagyl] 375 mg capsule 375 mg PO Q12H Qty: 30 0RF No Action omeprazole 20 mg capsule,delayed release(DR/EC) 20 mg PO DAILY PRN (Reason: GERD) Label Comments: TAKE 1 CAPSULE BY MOUTH TWICE A DAY Prolia 60 mg/mL syringe 60 mg subcut [id number] Rx Instructions: PT NOT DUE AT THIS TIME - TAKEN OCTOBER 18 fexofenadine [Allergy Relief (fexofenadine)] 180 mg tablet 180 mg PO DAILY Label Comments: TAKE 1 TABLET BY MOUTH EVERY DAY Vitamin C 2,000 mg Tablet Extended Release 2,000 mg PO DAILY calcium carbonate [Calcium 600] 600 mg calcium (1,500 mg) Tablet 1,200 mg PO DAILY cholecalciferol (vitamin D3) [Vitamin D3] 125 mcg (5,000 unit) Tablet 5,000 unit PO DAILY Referrals / Follow Up: Patience Olivas DO [Primary Care Provider] - Disposition Disposition (needs filled in before D/C Order can be placed): Home, Self Care
--- NOTE | 2022-11-22 12:33 | PCM.DC.BLA ---
Discharge Summary Date of Admission: 11/16/22 Date of Discharge: 11/20/22 Summary: 62 y/o female admitted for left lower quadrant abdominal pain. Findings of pneumoperitoneum on CT scan. Normal WBC. Admitted for inpatient observation. Treated with IV Zosyn, bowel rest and pain medications. Pain improved with the above. Patient still with some pain on hospital day 5, therefore repeat CT scan obtained. Resolution of pneumoperitoneum and resolving acute diverticulitis with no extravasation of contrast seen. Patient discharged to home on po augmentin and lower residue/fiber diet. Will follow up in clinic as outpatient. Meaningful Use Info Meaningful Use Diagnoses (Choose all that apply): None applicable Discharge Plan Admission Admit Date/Time: 11/16/22 14:06 Attending Provider: Cherelle Golden Primary Care Provider: Patience Olivas Instructions Additional Instructions / Restrictions: Recommended pain control regimen - May take 600 mg ibuprofen (Motrin) and then in 3-4 hours, may take 650 mg acetaminophen (Tylenol), then in 3-4 hours may take 600 mg ibuprofen, then in 3-4 hours may take 650 mg acetaminophen and so on for 2-3 days May take narcotic pain medication for pain that is not controlled by above and at night for comfort through the night DIET LOW RESIDUE/FIBER DIET for two weeks Drink plenty of fluids - best is water. Ambulation is encouraged You will have prescriptions for pain medications and two types of antibiotics Please call my office for an appointment to see me in 2 weeks. Office number is If any questions, please call my office at and ask the emergency vehicle operator for the general surgery nurses desk Patient Problems: Altered Health Status related to Hospitalization Patient Goals: *Optimal Level of Health *Keep Appointments *Medication Compliance *Remain Safe Discharge Orders/Prescriptions Prescriptions: New hydrocodone-acetaminophen 5-325 mg tablet 1 tab PO Q8H 3 Days Qty: 9 0RF amoxicillin-pot clavulanate [Augmentin] 500-125 mg tablet 1 tab PO Q8H 10 Days Qty: 30 0RF metronidazole [Flagyl] 375 mg capsule 375 mg PO Q12H Qty: 30 0RF No Action omeprazole 20 mg capsule,delayed release(DR/EC) 20 mg PO DAILY PRN (Reason: GERD) Label Comments: TAKE 1 CAPSULE BY MOUTH TWICE A DAY Prolia 60 mg/mL syringe 60 mg subcut [id number] Rx Instructions: PT NOT DUE AT THIS TIME - TAKEN OCTOBER 18 fexofenadine [Allergy Relief (fexofenadine)] 180 mg tablet 180 mg PO DAILY Label Comments: TAKE 1 TABLET BY MOUTH EVERY DAY Vitamin C 2,000 mg Tablet Extended Release 2,000 mg PO DAILY calcium carbonate [Calcium 600] 600 mg calcium (1,500 mg) Tablet 1,200 mg PO DAILY cholecalciferol (vitamin D3) [Vitamin D3] 125 mcg (5,000 unit) Tablet 5,000 unit PO DAILY Referrals / Follow Up: Patience Olivas DO [Primary Care Provider] - Disposition Disposition (needs filled in before D/C Order can be placed): Home, Self Care
== END 2022-11-20 18:06 | disposition home or self-care (01) | DRG 392 ==
LOC: ED 14:11 → MS2 14:38 → PCU 11-19 17:25
PROVIDERS: Admitting Provider Surgery; Emergency Provider Emergency Medicine; PCP Internal Medicine; Visit Provider Surgery
DX: K57.80 Diverticulitis of intestine, part unspecified, with perforation and abscess without bleeding (principal); Z79.899 Other long term (current) drug therapy
CPT/HCPCS: 36415; 74176; 74177; 80048; 81001; 83605; 85025; 99284; J7030; J7040; Q9967; A4216; J2405; J3490

== ENCOUNTER → 2022-12-26 | Outpatient (CLI) | payer BC, SELFPAY ==
[2022-12-26 10:01] LABS: Erythrocyte Sedimentation Rate 4 mm/hr (0-30)
[2022-12-26 10:10] LABS: Ammonia < 10.0 umol/L (11-32)
[2022-12-26 10:15] LABS: Absolute Lymphocyte Count 2.25 X10^3/uL (0.83-4.51); Absolute Neutrophil Count 3.8 X10^3/uL (2.0-7.7); Basophil% 1.4 % (0-1); Eosinophil# 0.37 X10^3/uL; Eosinophils% 5.2 % (0-5); Hematocrit 43.3 % (37-47); Hemoglobin 14.2 g/dL (12.0-15.0); Lymphocyte # 2.25 X10^3/ul (0.83-4.51); Lymphocyte % 31.9 % (19-41); Mean Corp Hgb Conc 32.8 g/dL (32-36); Mean Corpuscular Hgb 30.8 pg (27.0-32.0); Mean Corpuscular Volume 93.9 fL (81-99); Mean Platelet Vol. 10.3 fl (6.2-12.0); Monocyte# 0.53 X10^3/uL; Monocyte% 7.5 % (0-10); NRBC Flagged by Analyzer 0 % (0-5); Neutrophil # 3.78 X10^3/uL (2.7-7.7); Neutrophil % 53.7 % (47-70); Platelet Count 266 K/mm3 (150-450); RBC Distribution Width CV 11.6 % (11.6-14.6); RBC Distribution Width SD 39.5 fl (35.1-43.9); Red Blood Count 4.61 M/mm3 (4.2-5.4); White Blood Count 7.1 K/mm3 (4.4-11.0)
[2022-12-26 10:19] LABS: ALB/GLOB Ratio 1.1 RATIO (0.9-2.4); AST(SGOT) 25 U/L (15-37); Alanine Aminotransfer ALT/SGPT 38 U/L (13-56); Albumin, Serum 4.1 g/dL (3.2-5.0); Alkaline Phosphatase 49 U/L (45-117); Anion Gap 5 (5-15); BUN 21 mg/dL (7-18); BUN/Creat Ratio 21.4 RATIO (10-20); CRP < 2.90 mg/L (0.0-3.0); Calcium,Total 9.4 mg/dL (8.5-10.1); Chloride 104 mmol/L (98-107); Creatinine, Serum 0.98 mg/dL (0.55-1.02); EST Glomerular Filtration Rate 61 mL/min (>60); Est Glom Filt Rate - Afr Amer 74 mL/min (>60); Ferritin 523 ng/mL (8-252); Globulin 3.6 g/dL (2.2-4.2); Glucose 114 mg/dL (74-106); LDH 170 U/L (84-246); Potassium 4.2 mmol/L (3.5-5.1); Protein, Total 7.7 g/dL (6.4-8.2); Sodium Level 139 mmol/L (136-145)
[2022-12-26 10:28] LABS: Hemoglobin A1c 5.2 % (3.8-5.6)
[2022-12-26 10:33] LABS: HIV - WCH Non-Reactive (Nonreactive)
[2022-12-27 16:09] LABS: Anti-Centromere B Ab <0.2 AI (0.0-0.9); Anti-Chromatin <0.2 AI (0.0-0.9); Anti-Jo <0.2 AI (0.0-0.9); Anti-Scleroderma-70 AB <0.2 AI (0.0-0.9); RNP Ab 0.3 AI (0.0-0.9); SJOGREN'S Anti-SS-A test < 0.2 AI (0.0-0.9); SJOGREN'S Anti-SS-B test < 0.2 AI (0.0-0.9); Smith Ab <0.2 AI (0.0-0.9)
[2022-12-27 20:00] LABS: Anti-Mitochondrial AB <20.0 Units (0.0-20.0); Anti-dsDNA Ab <1 IU/mL (0-9)
[2022-12-29 13:07] LABS: Angiotensin Convert Enzyme 33 U/L (14-82); Ceruloplasmin 23.7 mg/dL (19.0-39.0); Cytoplasmic Ab (C-ANCA) <1:20 titer (Neg:<1:20); HEPATITIS B SURFACE AG Negative (Negative); Hep C Antibodies Non Reactive (Non Reactive); Hepatitis A IgM Antibody Negative (Negative); Hepatitis B Core AB IgM Negative (Negative)
[2022-12-30 09:50] LABS: AFP, Tumor Marker 4.3 ng/mL (0.0-9.2); Anti-Smooth Muscle ABS 7 Units (0-19); Copper, Serum or Plasma 99 ug/dL (80-158); Haptoglobin 148 mg/dL (37-355); Perinuclear Ab (P-ANCA) <1:20 titer (Neg:<1:20)
== END | disposition home or self-care (01) ==
PROVIDERS: PCP Internal Medicine; Referring Provider Internal Medicine Gastroenterology; Visit Provider Internal Medicine Gastroenterology
DX: K76.0 Fatty (change of) liver, not elsewhere classified (principal); R79.89 Other specified abnormal findings of blood chemistry
CPT/HCPCS: 36415; 80053; 80074; 82105; 82140; 82164; 82390; 82525; 82728; 83010; 83036; 83516; 83615; 85025; 85610; 85652; 86140; 86225; 86235; 86256; 86703

== ENCOUNTER → 2023-01-06 | Outpatient (CLI) | payer BC, SELFPAY ==
[2023-01-06] VITALS (10 sets, daily range): BP systolic 105–145; BP diastolic 45–83; PULSE 66–84; RESP 13–20; TEMP 36.7; O2SAT 93–100; BMI 28.3
--- NOTE | 2023-01-06 | LIVB_PTH ---
PATIENT: JABARI ROTH LOC: CT U#:[id number] AGE/SX: 62/F ROOM: RE01/06/[address]: Dr. Forest Richmond DO : 1960 BED: DIS: 01/06/2023 SPEC #: [id number] RECD: 01/06/23 11:54 STATUS: ANDRESSA REQ #: [id number] BEVERLEY: 01/06/23 00:[address]: Forest Richmond DEPT: SURGICAL PATHOLOGY RECD BY: Tate Malloy ENTERED: 01/06/23 11:54 SP TYPE: LIVER BX OTHR DR: Dr. Patience Olivas DO Tissues: Liver, NOS Procedures: PAS with Diastase (control) Trichrome (control) Special Stain Group II PAS Stain (control) Surgery Specimen Level V Retic (control) Iron Stain (control) HEADER OPERATION: Liver biopsy PRE-OP DIAGNOSIS: Fatty liver TISSUE SUBMITTED: Liver 18-gauge x3 MICROSCOPIC DIAGNOSIS Liver, CT-guided core biopsy: Minimal change. See comment. AM:virgie 01/07/2023 COMMENT Sections show minimal focal inflammation and rare hepatic steatosis. Reticulin stain does not reveal abnormal hepatic architecture. Iron stain reveals increased Case has been reviewed in consultation with intraparenchymal deposition of iron (). Trichrome stain does not reveal fibrosis or cirrhosis. PAS and PASD stains do not reveal accumulation of abnormal proteins. All matched controls are appropriate. No fatty change is identified. Clinical correlation is suggested. Dr. Ocampo who concurs with the above diagnosis. MICROSCOPIC DESCRIPTION Slides are reviewed. GROSS DESCRIPTION Received is one container labeled with the patient's name and not further designated. The specimen consists of three elongated fragments of rob soft tissue measuring 0.7 to 2.5 cm in length and 0.1 cm in diameter. The specimen is totally submitted in one cassette. / SJ:virgie 01/06/2023 TC:5 CPT: 43730, 47297 x5
[2023-01-06 08:46] LABS: Platelet Count 299 K/mm3 (150-450)
--- NOTE | 2023-01-06 08:46 | CT_ITS ---
PROCEDURE: CT DIRECTED CORE LIVER BIOPSY INDICATION: Female, 62 years old. Fatty infiltration of the liver. PHYSICIAN: Dr. Edna Carbajal CONSENT: Written informed consent was obtained having explained the risks, benefits and alternatives in detail with the patient who accepted the risks and agreed to proceed. Laboratory review and clinical assessment was performed. CONSCIOUS SEDATION PROTOCOL: The Drugs used were: 2 mg Versed, IV., and 50 mcg Fentanyl, IV. The sedation time was: 17 minutes. Conscious sedation was started at 10:01 AM and terminated at 10:18 AM. The conscious sedation protocol was independently monitored. RADIATION DOSAGE (If Supplied By Facility): CTDIvol = ( 18.5 ) mGy, DLP = ( 360.5 ) mGycm Individualized dose optimization techniques were used for this CT. TECHNIQUE: Using CT image guidance with image documentation, a suitable location in the right lobe of the liver was identified. Using an anterior approach, puncture of the liver was uneventful with an 18-gauge core needle system. 3, 18-gauge core samples were obtained, and submitted in formalin to the pathologist for further assessment. Followup CT scan revealed no distinct sequelae. CT/Biopsy/Inj or Needle Placement IMPRESSION: 1. CT directed core needle biopsy of the liver, using CT image guidance with image documentation as described. 2. Conscious Sedation protocol utilized with independent monitoring. Electronically Signed: Clayton Bishop MD at 10:52 EST ,
[2023-01-06 09:02] LABS: International Normalized Ratio 1.1; Prothrombin Time (Protime)PT. 13.7 SECONDS (11.7-14.9)
[2023-01-06 09:03] LABS: Partial Thromboplast Time 32.8 Seconds (24.1-36.2)
[2023-01-06] MEDS: Midazolam 2 MG/2 ML Syringe IV (10:01)
[2023-01-06] MEDS: fentaNYL 100 MCG/2 ML Ampul IV (10:04)
[2023-01-06] MEDS: Lidocaine 2% (20 ml mdv) 20 ML Vial INFILT (10:14)
== END | disposition home or self-care (01) ==
PROVIDERS: PCP Internal Medicine; Referring Provider Internal Medicine Gastroenterology; Visit Provider Internal Medicine Gastroenterology
DX: K76.0 Fatty (change of) liver, not elsewhere classified (principal)
CPT/HCPCS: 47000; 36415; 77012; 85049; 85610; 85730; 88307; 88313; 99156; J7050; A4216

== ENCOUNTER → 2023-03-17 | Outpatient (CLI) | payer BC, SELFPAY ==
--- NOTE | 2023-03-17 08:37 | BI_ITS ---
MAMMOGRAPHY - BILATERAL SCREENING REASON FOR EXAM: Female, 62 years old. Routine annual screening examination. PERTINENT HISTORY: Non-contributory. TECHNIQUE: Digital bilateral breast isaac (3D mammographic acquisition) in the CC and MLO projections. 2-D mediolateral oblique (MLO) and craniocaudad (CC) views of both breasts were obtained. CAD: Full Field Digital Mammography with Computer Added Detection was performed. COMPARISON: Comparison is made with prior study dated March 14, 2022 and March 12, 2021. FINDINGS: Breast Composition: The breasts are heterogeneously dense, which may obscure small masses. There are no dominant masses or suspicious calcifications. Stable small benign-appearing bilateral axillary lymph nodes. No other significant abnormalities are identified. There has been no significant change since the prior study. BI/SCRN MAMM (CAD)W/ISAAC BILAT IMPRESSION: Stable bilateral screening mammogram. Yearly follow-up mammogram recommended. (A) ASSESSMENT CATEGORY: BIRADS Category 2: Benign. A letter regarding these results will be sent to the patient by the facility within 30 days. Approximately 10% of breast cancers are not detected by mammography. A normal mammogram should not delay biopsy of a clinically suspicious abnormality. [id number] Electronically Signed: Clayton Bishop MD at 10:15 EDT ,
== END | disposition home or self-care (01) ==
LOC: OPBI 08:36
PROVIDERS: PCP Internal Medicine; Referring Provider Internal Medicine; Visit Provider Internal Medicine
DX: Z12.31 Encounter for screening mammogram for malignant neoplasm of breast (principal)
CPT/HCPCS: 77063; 77067

== ENCOUNTER → 2023-04-09 | Outpatient (CLI) | payer BC, SELFPAY ==
--- NOTE | 2023-04-09 07:46 | CT_ITS ---
STUDY: CT ABDOMEN AND PELVIS WITH CONTRAST REASON FOR EXAM: Female, 62 years old. Persistent left lower quadrant pain. History of prior diverticulitis. RADIATION DOSAGE (If Supplied By Facility): CTDIvol = ( 15.07 ) mGy, DLP = ( 1231.20 ) mGycm TECHNIQUE: Transaxial images were obtained from the dome of the diaphragm to the symphysis pubis without oral contrast. Oral and amp;amp; IV Readi-CAT and amp;amp; 100mL Isovue-300 was administered. Sagittal and coronal images were reconstructed. Individualized dose optimization techniques were used for this CT. COMPARISON: Comparison is made with prior study dated November 20, 2022. FINDINGS: The visualized lung bases are unremarkable. The visualized portions of the heart are within normal limits. Normal liver. Normal gallbladder and extrahepatic biliary system. Normal spleen. Normal pancreas. Normal bilateral adrenal glands. Normal right kidney. Normal left kidney. Normal visualized stomach. Normal small intestine. There are multiple colonic diverticula consistent with diverticulosis. The appendix is visualized and appears normal. There is scattered atherosclerotic calcification of the abdominal aorta, without a demonstrated aneurysm. Normal inferior vena cava. Normal retroperitoneum. Normal urinary bladder. Enlarged fibroid uterus. The largest fibroid measures 6.3 cm x 6.2 cm. Normal abdominal wall. Normal osseous structures. CT/Abdomen/Pelvis WITH Contrast IMPRESSION: Enlarged fibroid uterus. Electronically Signed: Clayton Bishop MD at 15:21 EDT ,
[2023-04-09 08:14] LABS: CREATININE FINGERSTICK < 0.9 mg/dL (0.55-1.02); EGFR FINGERSTICK > 60.0000 mL/min (>60)
== END | disposition home or self-care (01) ==
LOC: CT 07:39
PROVIDERS: PCP Internal Medicine; Referring Provider Internal Medicine Gastroenterology; Visit Provider Internal Medicine Gastroenterology
DX: K57.90 Diverticulosis of intestine, part unspecified, without perforation or abscess without bleeding (principal)
CPT/HCPCS: 74177; Q9967

== ENCOUNTER 2023-05-17 09:13 | Emergency (ER) | payer BC, SELFPAY ==
[2023-05-17 09:14] VITALS: BP 136/91; PULSE 72; RESP 14; TEMP 36.4; O2SAT 100; BMI 29.2
--- NOTE | 2023-05-17 10:03 | CT_ITS ---
STUDY: CT ABDOMEN AND PELVIS WITH CONTRAST - URINARY TRACT REASON FOR EXAM: Female, 62 years old. Left lower quadrant pain pain history of diverticulitis with microperforation RADIATION DOSAGE (If Supplied By Facility): CTDIvol = ( 12.79 ) mGy, DLP = ( 714.14 ) mGycm TECHNIQUE: IV 100mL Isovue-370 was administered. Transaxial images were obtained from the dome of the diaphragm to the symphysis pubis subsequent to intravenous contrast administration. In the arterial, nephrographic and excretory phases. Multiplanar coronal and sagittal images were reformatted. Individualized Dose Optimization Techniques Were Used For This CT. COMPARISON: Prior studies dated: November 20, 2022 and April 09, 2023 FINDINGS: The visualized lung bases are unremarkable. The visualized portions of the heart are within normal limits. The visualized liver is within normal limits. The dome of the right hepatic lobe was not included in the examination. Normal gallbladder and extrahepatic biliary system. Normal spleen. Normal pancreas. Normal bilateral adrenal glands. Normal visualized stomach. Normal small intestine. There is diverticulosis, with thickening of the proximal sigmoid colonic wall, and pericolonic inflammation changes consistent with acute diverticulitis. The appendix is visualized and appears normal. There is diffuse atherosclerotic calcification of the abdominal aorta, without a demonstrated aneurysm. No retroperitoneal adenopathy. Normal right kidney. Normal left kidney. Normal urinary bladder. There are stable round low-attenuation foci arising from the uterus suggestive of fibroids. Normal abdominal wall. Normal osseous structures. CT/Abdomen/Pelvis W IV Cont ONLY IMPRESSION: Acute diverticulitis of the sigmoid colon. Stable fibroid uterus. Atherosclerosis. Electronically Signed: Anne Grossman MD at 11:09 EDT ,
--- NOTE | 2023-05-17 10:03 | ED.VIS.GI ---
HPI HPI - GI History of Present Illness Chief Complaint: Abd Pain Narrative Narrative: 62-year-old female past medical history of previous diverticulitis with microperforation in November of this year, almost 7 months ago states that she had been admitted to the hospital for 5 days for IV antibiotics at that time but did not receive surgery by Dr. Golden. She presents with left lower quadrant abdominal pain similar to her bout of diverticulitis over the past 14 hours. She denies any fevers or chills. No nausea or vomiting. No problems with bowel movements. She states that she ate lunch as she works second shift. She had cherries and a peach, then began having left lower quadrant abdominal pain. No exacerbating or alleviating factors but sometimes the pain is sharp and stabbing in the left lower quadrant. Her states that the last time she was diagnosed with diverticulitis she had waited a week and that there was a small amount of perforation, but she did not require surgical intervention, and was sent home on antibiotics. Feels very similar. [facility] Medical History Bronchitis Carpal tunnel syndrome Diverticulitis Hair loss High triglycerides Low HDL (under 40) Right rotator cuff tear Varicose vein of leg Home Medications fexofenadine 180 mg tablet (Allergy Relief (fexofenadine)) 180 mg PO DAILY PRN allergies 09/04/21 [History Last Taken Unknown] denosumab 60 mg/mL subcutaneous syringe (Prolia) 60 mg subcut [id number] [facility] 09/18/22 [History Last Taken Unknown] omeprazole 20 mg capsule,delayed release 20 mg PO DAILY PRN GERD 09/18/22 [History Last Taken Unknown] ascorbic acid (vitamin C) 2,000 mg tablet,extended release 2,000 mg PO DAILY SUPPLEMENT 11/16/22 [History Last Taken Unknown] calcium carbonate 600 mg calcium (1,500 mg) tablet (Calcium) 1,200 mg PO DAILY SUPPLEMENT 11/16/22 [History Last Taken Unknown] cholecalciferol (vitamin D3) 125 mcg (5,000 unit) tablet (Vitamin D3) 5,000 unit PO DAILY SUPPLEMENT 11/16/22 [History Last Taken Unknown] metronidazole 500 mg tablet 500 mg PO BID #28 tabs 12/26/22 [Rx Last Taken Unknown] ursodiol 250 mg tablet 250 mg PO BID #60 tabs 03/27/23 [Rx Last Taken Unknown] ciprofloxacin HCl 500 mg tablet (Cipro) 500 mg PO BID #20 tabs 05/17/23 [Rx Last Taken Unknown] metronidazole 500 mg tablet 500 mg PO TID #30 tabs 05/17/23 [Rx Last Taken Unknown] oxycodone 5 mg tablet 5 mg PO Q6H PRN pain 3 days #12 tabs 05/17/23 [Rx Last Taken Unknown] Allergy/AdvReac Type Severity Reaction Status Date / Time No Known Allergies Allergy Verified 05/17/23 09:15 Surgical History History of carpal tunnel surgery Hx of rotator cuff surgery Social History Smoking Status: Never smoker ROS ROS ED ROS Narrative Constitutional: No fever, no chills. HEENT: No sore throat. No neck pain. No loss of vision. No rhinorrhea. Cardiovascular: No chest pain. No palpitations. No pedal edema. Respiratory: No cough, no shortness of breath. Abdominal: Left lower quadrant abdominal pain sharp and stabbing, tender. No nausea. No vomiting. Genitourinary: No dysuria. No hematuria. Musculoskeletal: No myalgias. No arthralgias. Neurologic: No headaches. No dizziness. No lightheadedness. Skin: No rash. No change in color. Psychiatric: No depression. No anxiety. EXAM Physical Exam Narrative Exam Narrative: Afebrile. Vital signs noted. HEENT: Normocephalic. Atraumatic. PERRL, EOMI. Neck soft and supple. No point tenderness or step off. Cardiovascular: Regular rate and rhythm. No murmurs, rubs, or gallops appreciated. Respiratory: No tachypnea. Lungs clear to auscultation bilaterally. Gastrointestinal: Abdomen soft, positive tenderness to palpation left lower quadrant, with normoactive bowel sounds. No rebound or guarding. Neurological: Awake. Alert. Nonfocal, nonlateralizing. Skin: No rash. Normal color. No pallor. Musculoskeletal: No pedal edema. Full range of motion extremities. Const Vital Signs: 05/17/23 09:14 05/17/23 11:33 Temperature 97.5 F L Temperature Source Temporal Pulse Rate 72 77 Respiratory Rate 14 16 Blood Pressure 136/91 H 99/54 L Blood Pressure Mean 106 69 Pulse Ox 100 96 Oxygen Delivery Method Room Air Room Air MDM MDM MDM Narrative Medical decision making narrative: Given her history of diverticulitis with microperforation, concern is for diverticulitis, versus diverticular abscess. Comprehensive work-up was pursued. She was administered morphine and ondansetron and a liter of IV fluids. I do feel CT imaging is indicated along with baseline laboratories. Lower in the differential would be ureterolithiasis, but her history and lack of hematuria goes against this. I reviewed her laboratory work and she has normal white count of 10.0, hemoglobin normal at 13.5 with normal platelet count of 246. CMP shows glucose normal at 95 with normal sodium of 138, potassium slightly low at 3.4, and a chloride of 104. Urinalysis is negative for infection. CT of the abdomen pelvis with IV contrast was obtained and I reviewed the radiology report which does show uncomplicated sigmoid diverticulitis without abscess or perforation. Appendix was visualized and appears normal. At this point in time, upon repeat examination, she feels improved. She would like to try outpatient antibiotics. I do not feel that she requires observation or admission at this time as there is no microperforation or abscess. Additionally, she was warned of the risk of perforation of the diverticuli and abscess development. I discussed patient with Dr. Richmond, her life agent, who can follow-up with her in the next 3 to 5 days. Return instructions to the emergency department were reviewed. She was given her first doses of ciprofloxacin and Flagyl here in the emergency department and a prescription was written for the remaining 10 days. She was also given a prescription for 3 days worth of oxycodone to take as needed for pain. I feel that she does merit outpatient trial as she does not have a fever or leukocytosis currently. Return instructions to the emergency department were reviewed. Disposition is discharged home in stable condition. History & Record Review Discussion w/independent historian: Patient and Family Additional record(s) reviewed:: Prior ED visit and Prior labs Lab Data Attestation: I reviewed the patient's lab results. Labs: Laboratory Results - last 24 hr 05/17/23 09:30 WBC 10.0 RBC 4.34 Hgb 13.5 Hct 41.3 MCV 95.2 MCH 31.1 MCHC 32.7 RDW Std Deviation 38.6 RDW Coeff of Shadia 11.0 L Plt Count 246 MPV 10.7 Immature Gran % (Auto) 0.300 Neut % (Auto) 67.3 Lymph % (Auto) 21.4 [place] % (Auto) 7.6 Eos % (Auto) 2.7 Baso % (Auto) 0.7 Absolute Neuts (auto) 6.7 Absolute Lymphs (auto) 2.13 Nucleated RBC % 0 Sodium 138 Potassium 3.4 L Chloride 104 Carbon Dioxide 29.0 Anion Gap 5 BUN 12 Creatinine 0.84 Estim Creat Clear Calc 49.88 Est GFR (MDRD) Af Amer 88 Est GFR (MDRD) Non-Af 73 BUN/Creatinine Ratio 14.3 Glucose 95 Calcium 9.1 Total Bilirubin 2.50 H AST 27 ALT 68 H Alkaline Phosphatase 62 Total Protein 7.3 Albumin 3.6 Globulin 3.7 Albumin/Globulin Ratio 1.0 Urine Color Yellow Urine Clarity Sl. Cloudy Urine pH 6.0 Ur Specific [place] 1.010 Urine Protein Negative Urine Glucose (UA) Normal Urine Ketones Negative Urine Occult Blood Negative Urine Nitrite Negative Urine Bilirubin Negative Urine Urobilinogen Normal Ur Leukocyte Esterase 25 H Urine RBC 0 SEEN Urine WBC 0 SEEN Ur Squamous Epith Cells 0 SEEN Urine Bacteria 0 SEEN Urine Mucus 0 SEEN Radiography Diagnostic Testing: Clinical Impression(s) from Imaging Studies Abdomen/Pelvis CT 05/17/23 10:03 IMPRESSION: Acute diverticulitis of the sigmoid colon. Stable fibroid uterus. Atherosclerosis. Electronically Signed: Anne Grossman MD at 11:09 EDT Reading Location ID and State: [facility] / [place] Tel , Service support , Discharge Plan Triage Chief Complaint: Abd Pain ED Provider: Gui Guillermo Dx/Rx/DC Orders Clinical Impression: Sigmoid diverticulitis, Abdominal pain Instructions: ED Diverticulitis Prescriptions: New ciprofloxacin HCl [Cipro] 500 mg tablet 500 mg PO BID Qty: 20 0RF metronidazole 500 mg tablet 500 mg PO TID Qty: 30 0RF oxycodone 5 mg tablet 5 mg PO Q6H PRN (Reason: pain) 3 Days Qty: 12 0RF No Action omeprazole 20 mg capsule,delayed release(DR/EC) 20 mg PO DAILY PRN (Reason: GERD) Patient Comments: TAKE 1 CAPSULE BY MOUTH TWICE A DAY Prolia 60 mg/mL syringe 60 mg subcut [id number] Rx Instructions: PT NOT DUE AT THIS TIME - TAKEN OCTOBER 18 metronidazole 500 mg tablet 500 mg PO BID Qty: 28 0RF ursodiol 250 mg tablet 250 mg PO BID Qty: 60 2RF fexofenadine [Allergy Relief (fexofenadine)] 180 mg tablet 180 mg PO DAILY PRN (Reason: allergies) Patient Comments: TAKE 1 TABLET BY MOUTH EVERY DAY Vitamin C 2,000 mg Tablet Extended Release 2,000 mg PO DAILY calcium carbonate [Calcium 600] 600 mg calcium (1,500 mg) Tablet 1,200 mg PO DAILY cholecalciferol (vitamin D3) [Vitamin D3] 125 mcg (5,000 unit) Tablet 5,000 unit PO DAILY Primary Care Provider: Patience Olivas Referrals: Patience Olivas DO [Primary Care Provider] - FriendForest DO [Med Staff - Active Staff] - 3-5 Days Disposition Disposition: Home, Self Care
[2023-05-17 10:13] LABS: Absolute Lymphocyte Count 2.13 X10^3/uL (0.83-4.51); Absolute Neutrophil Count 6.7 X10^3/uL (2.0-7.7); Basophil# 0.07 X10^3/uL; Basophil% 0.7 % (0-1); Eosinophil# 0.27 X10^3/uL; Eosinophils% 2.7 % (0-5); Hematocrit 41.3 % (37-47); Hemoglobin 13.5 g/dL (12.0-15.0); Lymphocyte # 2.13 X10^3/ul (0.83-4.51); Lymphocyte % 21.4 % (19-41); Mean Corp Hgb Conc 32.7 g/dL (32-36); Mean Corpuscular Hgb 31.1 pg (27.0-32.0); Mean Corpuscular Volume 95.2 fL (81-99); Mean Platelet Vol. 10.7 fl (6.2-12.0); Monocyte# 0.76 X10^3/uL; Monocyte% 7.6 % (0-10); NRBC Flagged by Analyzer 0 % (0-5); Neutrophil # 6.71 X10^3/uL (2.7-7.7); Neutrophil % 67.3 % (47-70); Platelet Count 246 K/mm3 (150-450); RBC Distribution Width SD 38.6 fl (35.1-43.9); Red Blood Count 4.34 M/mm3 (4.2-5.4)
[2023-05-17] MEDS: Ondansetron 4 MG/2 ML Vial IV (10:13)
[2023-05-17] MEDS: 0.9% Normal Saline 1,000 ML 1000 ML IV (10:13)
[2023-05-17] MEDS: Morphine 4 MG/ML Syringe IV (10:14)
[2023-05-17 10:29] LABS: AST(SGOT) 27 U/L (15-37); Alanine Aminotransfer ALT/SGPT 68 U/L (13-56); Albumin, Serum 3.6 g/dL (3.2-5.0); Alkaline Phosphatase 62 U/L (45-117); Anion Gap 5 (5-15); BUN 12 mg/dL (7-18); BUN/Creat Ratio 14.3 RATIO (10-20); Bacteria 0 SEEN /hpf (None Seen); Calcium,Total 9.1 mg/dL (8.5-10.1); Chloride 104 mmol/L (98-107); Creatinine, Serum 0.84 mg/dL (0.55-1.02); EST Glomerular Filtration Rate 73 mL/min (>60); Est Glom Filt Rate - Afr Amer 88 mL/min (>60); Estimated Creatinine Clearance 49.88 ml/min; Globulin 3.7 g/dL (2.2-4.2); Glucose 95 mg/dL (74-106); Mucous, Urine 0 SEEN /hpf (<or=2+); Potassium 3.4 mmol/L (3.5-5.1); Protein, Total 7.3 g/dL (6.4-8.2); Red Blood Cells-Urine 0 SEEN /hpf (0-5); Sodium Level 138 mmol/L (136-145); Squamous Epithelial Cells - UA 0 SEEN /hpf (5-10); White Blood Cells 0 SEEN /hpf (0-5)
[2023-05-17 10:32] LABS: Color, Urine Yellow (Yellow); Glucose, Dipstick Normal (Normal); Ketone-Dipstick Negative (Negative); Leukocyte Esterase-Dipstick 25 /ul (Negative); Nitrite-Dipstick Negative (Negative); Occult Blood-Urine Negative /ul (Negative); Protein-Dipstick Negative (Negative); Urine Bilirubin Dipstick Negative (Negative); Urine Clarity Sl. Cloudy (Clear); Urine Urobilinogen Normal (Normal)
[2023-05-17 11:33] VITALS: BP 99/54; PULSE 77; RESP 16; O2SAT 96
[2023-05-17] MEDS: Ciprofloxacin 500 MG Tablet PO (11:41)
[2023-05-17] MEDS: metroNIDAZOLE 500 MG Tablet PO (11:41)
== END 2023-05-17 11:44 | disposition home or self-care (01) ==
PROVIDERS: Emergency Provider Emergency Medicine; PCP Internal Medicine; Visit Provider Emergency Medicine
DX: K57.32 Diverticulitis of large intestine without perforation or abscess without bleeding (principal); Z87.19 Personal history of other diseases of the digestive system
CPT/HCPCS: 74177; 80053; 81001; 85025; 96361; 96374; 96375; 99284; J7030; Q9967; A4216; J2405

== ENCOUNTER 2023-07-14 08:48 | Day surgery (SDC) | payer BC, SELFPAY ==
[2023-07-14 09:15] VITALS: BP 128/81; PULSE 78; RESP 18; TEMP 36.8; O2SAT 98; BMI 28.1
[2023-07-14] MEDS: Lactated Ringers 1,000 ML 15 ML IV (09:32)
--- NOTE | 2023-07-14 10:17 | HP.PCM_ITS ---
History and Physical Date of Admission: 07/14/23 JABARI ROTH, is a 62 F who presents to the office today for PMH fatty liver, elevated ferritin; Vid D deficiency; alopecia; lentigo; osteoporosis/penia; diverticulitis; low HDL, high triglycerides. PCP seen with epigastric pain, workup of imaging and biochemical workup prompted referral to [facility]. ? US 04.18.22 hepatic measurement 12.5cm with fatty infiltration. ? HIDA 05.10.22 low normal gallbladder EF 36%. [facility] Dr. Amaro established for elevated ferritin. ? CT abd 08.16.22 normal liver; small hiatal hernia; colonic diverticulosis with wall thickening and pericolonic inflammation changes consistent with acute diverticulitis. ? Biochemical workup CBC (plt 284), CMP, TIBC, iron, ESR, hepatitis B/C.? Ferritin H456, iron sat H61.2, GGT H108, T. Bili H1.10 ? LFT AST 33-ALT 45-AP L44 ? US and Elastography 10.14.22 hepatic measurement 13.2cm with fatty infiltration, stiffness measures 15.6kPa. [facility] hospitalization 11.16.22-11.22.22 with abdominal pain with nausea for two weeks with worsening severity. Admitted for pneumoperitoneum without diverticulitis. Treated with zosyn, bowel rest and pain management. ? Biochemical workup CBC, CMP, lactic acid, UA without pertinent abnormality. ? CT abd/pel 11.16.22 colonic diverticulosis; small pneumoperitoneum beneath right hemidiaphragm and overlying anterior liver space. CT abd/pel 11.20.22 previously seen free air under hemidiaphragm has resolved; diverticulosis; chronic inflammatory stranding/scarring seen in left lower paracolic gutter adjacent to previously inflamed diverticula. *[facility] established 12.26.22 Presents for further evaluation of her liver; she was born in the [facility] and immigrated in 1997, she has since been vaccinated for hepatitis B. No alcohol abuse or family history of liver disease. Continues to have left sided abdominal pain since hospitalization, though to a lesser degree. Fatty liver, liver biopsy and biochemical workup. Ferritin, biochemical workup. Elevated serum GGT, r/t liver disease. Diverticulosis, suspect previous inf ection has not cleared. Cipro and flagyl. Biochemical workup CBC, ESR, CMP, LDH, CRP, A1c, coagulation, ASM, AMA, ELONEL comp, ANCA, hepatitis, HIV, KAMERON, AFP, ceruloplasmin, copper, haptoglobin, hereditary hemochromatosis without pertinent abnormality. Ferritin H523, ammonia <10 Liver biopsy 3.04.25 minimal focal inflammation and rare hepatic steatosis; increased iron deposits 1-2/4. No cirrhosis. PCP OV who performed biochemical. ? Biochemical 4. ferritin H578, GGT H131, TIBC L243 OV 5.. abdominal pain LLQ continues to be present, particularly after eating. BM occur 1-2/day with complete evacuation though has some straining. ROS Const Constitutional: No anorexia, fatigue, fever(s), weight change or sleep problems Eyes Eyes: No change in vision ENT ENT: No abnormal hearing, difficulty swallowing, mouth lesions, tongue swelling or throat swelling Resp Respiratory: No cough or shortness of breath Cardio Cardiology: No chest pain at rest, chest pain with exertion, shortness of breath or dyspnea on exertion Gastro GI: No difficulty swallowing Genitourinary-Female: No difficulty urinating or burning urination Musc Musculoskeletal: No joint pain, joint swelling, muscle weakness or decreased muscle mass Skin Skin: No hair loss in leg, yellowing of the eye, itchy eyes, rash, skin ulcer or skin swelling Neuro Neurology: No abnormal hearing, abnormal movements, confusion, unsteady gait/balance or memory loss Psych Psychiatric: No anxiety, No confusion and No memory loss Endo Endocrine: No fatigue or weight change Aller/Imm Allergy/Immunologic: No itchy eyes, throat swelling or tongue swelling Messi/Lymp Hematologic/Lymphatic: No easy bleeding, easy bruising or enlarged lymph nodes Exam Const General: cooperative and comfortable Nutritional Appearance: average body habitus and well nourished HENMT Head: normal to inspection Ears: hearing grossly normal bilaterally Nose: external nose normal Face and sinus: normal facial exam Mouth: oral mucosae normal Throat: posterior oropharynx normal Eyes General: appearance normal, both eyes and all related structures Neck Neck: normal visual inspection Chest Chest palpation & inspection: normal inspection of the chest and normal palpation of entire chest wall Resp Effort & Inspection: normal respiratory effort Auscultation: Bilateral: Clear to Auscultation Cardio Palpation: normal PMI Rate: regular rate Rhythm: regular rhythm GI Inspection: normal to inspection Auscultation: normal bowel sounds Percussion: normal to percussion Palpation: no hepatosplenomegaly Skin General: no rashes or lesions noted Neuro General: patient alert Extrem General: normal to inspection Psych Affect: normal affect Quality Reporting Tobacco Screening ([facility] 138) Smoking Status: Never smoker Assessment and Plan Assessment and Plan (1) Diverticulosis: Status: Chronic Plan: Diverticulosis in the setting of acute recurrent diverticulitis approximately 3 months apart likely associated with a microperforation and pneumatosis of the abdomen and pelvis. She completed a 5-day course of Augmentin. She was given article on sigmoid colitis associated with diverticulosis. I do not think her original diverticulitis ever resolved. On her imaging she did have a cold abscess that did not have to be percutaneously drained. She has intermittent left lower quadrant pain and at this time is not complaining of any constipation. I will gave her 14-day course of 250 mg of Cipro p.o. twice daily and also 14-day course of Metronidazole 500 milligrams twice a day for 14 days. Her ESR and CRP are normal at this time. Likely she will need to go on mesalamine based products and transition to possible steroid and or probiotic supplement. We will start her on Fiberchoice. (2) Fatty liver disease, nonalcoholic: Status: Chronic Plan: Her FibroScan did show a K PA of 15.6 this is associated with F3 F4 chronic liver disease secondary to nonalcoholic steatohepatitis. She will need to undergo a liver biopsy along with further work-up including anti-smooth muscle antibody, work-up for hemochromatosis, immunofixation with electrophoresis. Liver biopsy did not show any signs of cirrhosis. It did show some mild inflammation secondary to steatosis without scarring without inflammation within the portal tracts. There was no lymphoplasmacytic area. It was 2+ iron in the liver. (3) Elevated ferritin: Status: Chronic Comment: May be related to Liver disease. Plan: Patient she has secondary overload possibly secondary to nonalcoholic steatohepatitis. Hyperferritinemia can contribute to worsening VAUGHN. I will put her on hemochromatosis diet which is low in iron containing foods. Her ferritin level is still ranging around 500 and we would like to get that down to less than 150 if possible. (4) Elevated serum GGT level: Status: Chronic Plan: Elevated serum GGT likely secondary to underlying liver disease. Medications: New ursodiol 250 mg PO BID 60 tabs 2RF I have examined the patient and the H&P has been reviewed. There are no clinical changes since date of exam.
[2023-07-14 10:40] VITALS: BP 106/71; BP 128/81; PULSE 72; RESP 18; TEMP 36.3; O2SAT 98
[2023-07-14 10:45] VITALS: BP 104/72; BP 128/81; PULSE 72; RESP 18; O2SAT 94
--- NOTE | 2023-07-14 10:45 | OP.CCLET_ITS ---
07/14/2023 Patience Olivas [address] [place] [address] Re : Colonoscopy procedure for Jony Tolentino Dear Dr. Olivas This procedure was performed on Friday, July 14, 2023. My impressions and recommendations are as follows: Impressions : - Diverticulosis in the recto-sigmoid colon, in the sigmoid colon, in the descending colon, at the hepatic flexure and in the ascending colon. - No specimens collected. Recommendations : - Discharge patient to home. - Resume previous diet. - Continue present medications. - Repeat colonoscopy in 5 years for surveillance. My findings are described in the full procedure note, which is enclosed. If I can be of further assistance, please feel free to contact me at . Sincerely, Forest Richmond, 07/14/2023 10:45:11 AM This report has been signed electronically.
--- NOTE | 2023-07-14 10:45 | OP.COLON_ITS ---
Patient Name: Jony Tolentino Procedure Date: 07/14/2023 10:19 AM Date of : 1960 Age: 62 Procedure: Colonoscopy Indications: Abnormal CT of the GI tract, Diverticulitis Providers: Forest Richmond DO Medicines: Monitored Anesthesia Care Patient Profile: This is a 62 year old female. Refer to note in patient chart for documentation of history and physical. Last Colonoscopy: date unknown. Unable to locate last colonoscopy report. Complications: No immediate complications. Procedure: Pre-Anesthesia Assessment: - Prior to the procedure, a History and Physical was performed, and patient medications and allergies were reviewed. The patient is competent. The risks and benefits of the procedure and the sedation options and risks were discussed with the patient. All questions were answered and informed consent was obtained. Patient identification and proposed procedure were verified by the physician in the pre-procedure area. Mental Status Examination: alert and oriented. Airway Examination: normal oropharyngeal airway and neck mobility. Respiratory Examination: clear to auscultation. CV Examination: normal. Prophylactic Antibiotics: The patient does not require prophylactic antibiotics. Prior Anticoagulants: The patient has taken no anticoagulant or antiplatelet agents. ASA Grade Assessment: II - A patient with mild systemic disease. After reviewing the risks and benefits, the patient was deemed in satisfactory condition to undergo the procedure. The anesthesia plan was to use monitored anesthesia care (MAC). Immediately prior to administration of medications, the patient was re-assessed for adequacy to receive sedatives. The heart rate, respiratory rate, oxygen saturations, blood pressure, adequacy of pulmonary ventilation, and response to care were monitored throughout the procedure. The physical status of the patient was re-assessed after the procedure. After I obtained informed consent, the scope was passed under direct vision. Throughout the procedure, the patient's blood pressure, pulse, and oxygen saturations were monitored continuously. The Colonoscope was introduced through the anus and advanced to the cecum, identified by appendiceal orifice and ileocecal valve. The colonoscopy was performed without difficulty. The patient tolerated the procedure well. The quality of the bowel preparation was good. Scope In: 10:26:07 AM Scope Withdrawal Time 0 hours 5 minutes 49 seconds Scope Out: 10:35:00 AM Total Procedure Duration Time 0 hours 8 minutes 53 seconds Findings: The perianal and digital rectal examinations were normal. Multiple small and large-mouthed diverticula were found in the recto-sigmoid colon, sigmoid colon, descending colon, hepatic flexure and ascending colon. Impression: - Diverticulosis in the recto-sigmoid colon, in the sigmoid colon, in the descending colon, at the hepatic flexure and in the ascending colon. - No specimens collected. Recommendation: - Discharge patient to home. - Resume previous diet. - Continue present medications. - Repeat colonoscopy in 5 years for surveillance. Procedure Code(s): --- Professional --- 90302, Colonoscopy, flexible; diagnostic, including collection of specimen(s) by brushing or washing, when performed (separate procedure) CPT copyright 2021 [employer]. All rights reserved. The codes documented in this report are preliminary and upon polishing machine operator review may be revised to meet current compliance requirements. Forest Richmond DO 07/14/2023 10:45:11 AM This report has been signed electronically. Number of Addenda: 0 Note Initiated On: 07/14/2023 10:19 AM
[2023-07-14 10:50] VITALS: BP 100/75; BP 128/81; PULSE 80; RESP 18; O2SAT 93
[2023-07-14 10:55] VITALS: BP 107/74; BP 128/81; PULSE 77; RESP 18; TEMP 36.6; O2SAT 94
[2023-07-14 11:27] VITALS: BP 128/81
== END 2023-07-14 11:28 | disposition home or self-care (01) ==
LOC: EN 08:50 → AC 08:50
PROVIDERS: PCP Internal Medicine; Referring Provider Internal Medicine; Visit Provider Internal Medicine Gastroenterology
PROC: 0DJD8ZZ Inspection of Lower Intestinal Tract, Via Natural or Artificial Opening Endoscopic (ICD-10-PCS; CPT 45378; principal; 2023-07-14 09:55)
DX: K57.30 Diverticulosis of large intestine without perforation or abscess without bleeding (principal); K76.0 Fatty (change of) liver, not elsewhere classified; K21.9 Gastro-esophageal reflux disease without esophagitis; R93.3 Abnormal findings on diagnostic imaging of other parts of digestive tract; E55.9 Vitamin D deficiency, unspecified; Z79.899 Other long term (current) drug therapy; Z86.16 Personal history of COVID-19
CPT/HCPCS: 45378; J7120; J2405

== ENCOUNTER → 2023-10-16 | Outpatient (CLI) | payer BC, SELFPAY ==
--- NOTE | 2023-10-16 08:39 | US_ITS ---
STUDY: ABDOMINAL ULTRASOUND - RIGHT UPPER QUADRANT; ELASTOGRAPHY REASON FOR VISIT: Female, 62 years old. Fatty infiltration of the liver. TECHNIQUE: Ultrasound evaluation of the right upper quadrant was performed with real-time and static meyer-scale imaging. Point quantification shear wave elastography was performed ([employer]). TECHNICAL QUALITY: Adequate. COMPARISON: Comparison is made with prior study dated October 14, 2022. FINDINGS: Liver: The liver measures 11.5 cm. There is a heterogeneous echogenicity of the liver. The bile ducts are within normal limits. There is hepatic color flow. The direction of portal flow is hepatopetal. There is no demonstrated mass lesion. Median liver stiffness measured 8.5 kPa. Gallbladder: Normal distended gallbladder. The gallbladder wall measures 2.0 mm. There is a negative sonographic Curtis''s sign. There is no pericholecystic fluid. There are no gallstones. Common Bile Duct (C.B.D.): The common bile duct measures 3.0 mm. Pancreas: There is normal echogenicity of the visualized pancreas. There is no demonstrated pancreatic mass or cyst. Right Kidney: Normal size of the right kidney. The right kidney measures 10.4 cm x 4.8 cm x 4.4 cm. Normal renal cortex. The right cortex measures 1.3 cm. There is no demonstrated renal mass or cyst. There is no right hydronephrosis. US/ABD Limited w/ Elastography IMPRESSION: 1. Liver stiffness measures 8.5 kPa compatible with F2-F3 (Mild to moderate liver fibrosis) Metavir score. Electronically Signed: Clayton Bishop MD at 13:53 EST ,
== END | disposition home or self-care (01) ==
LOC: US 08:38
PROVIDERS: PCP Internal Medicine; Referring Provider Internal Medicine Gastroenterology; Visit Provider Internal Medicine Gastroenterology
DX: K76.0 Fatty (change of) liver, not elsewhere classified (principal)
CPT/HCPCS: 76705; 76981

== ENCOUNTER → 2024-03-18 | Outpatient (CLI) | payer BC, SELFPAY ==
--- NOTE | 2024-03-18 09:46 | BI_ITS ---
MAMMOGRAPHY - BILATERAL SCREENING REASON FOR EXAM: Female, 63 years old. Routine annual screening examination. PERTINENT HISTORY: Non-contributory. TECHNIQUE: Digital bilateral breast isaac (3D mammographic acquisition) in the CC and MLO projections. 2-D mediolateral oblique (MLO) and craniocaudad (CC) views of both breasts were obtained. CAD: Full Field Digital Mammography with Computer Added Detection was performed. COMPARISON: Comparison is made with prior study dated March 17, 2023 and March 14, 2022. FINDINGS: Breast Composition: The breasts are heterogeneously dense, which may obscure small masses. There are no dominant masses or suspicious calcifications. Stable small benign-appearing bilateral axillary lymph nodes. No other significant abnormalities are identified. There has been no significant change since the prior study. BI/SCRN MAMM (CAD)W/ISAAC BILAT IMPRESSION: Stable bilateral screening mammogram. Yearly follow-up mammogram recommended. (A) ASSESSMENT CATEGORY: BIRADS Category 2: Benign. A letter regarding these results will be sent to the patient by the facility within 30 days. Approximately 10% of breast cancers are not detected by mammography. A normal mammogram should not delay biopsy of a clinically suspicious abnormality. [id number] Electronically Signed: Clayton Bishop MD at 11:09 EDT ,
== END | disposition home or self-care (01) ==
LOC: OPBI 09:45
PROVIDERS: PCP Internal Medicine; Referring Provider Internal Medicine; Visit Provider Internal Medicine
DX: Z12.31 Encounter for screening mammogram for malignant neoplasm of breast (principal)
CPT/HCPCS: 77063; 77067

== ENCOUNTER → 2024-05-03 | Outpatient (CLI) | payer BC, SELFPAY ==
--- NOTE | 2024-05-03 08:42 | US_ITS ---
STUDY: ABDOMINAL ULTRASOUND - ELASTOGRAPHY REASON FOR VISIT: Female, 63 years old. Nonalcoholic fatty liver disease TECHNIQUE: Liver stiffness measurements were obtained on a [employer] RS 85 ultrasound machine using a CA 1-7 probe following the U guidelines. 3 measurements were obtained using a 2-D-SWE method. TheIQR/M was 12% suggesting a quality data set. TECHNICAL QUALITY: Adequate. COMPARISON: 10/16/2023 FINDINGS: Liver: There is no demonstrated mass lesion. Median liver stiffness measured 9.67 kPa. Abdomen: There is no demonstrated mass lesion. US/ABD Limited w/ Elastography IMPRESSION: Liver stiffness measures 9.67 kPa compatible with F2-F3 Metavir score. Electronically Signed: Raymundo Tee MD at 12:28 EDT ,
== END | disposition home or self-care (01) ==
LOC: US 08:41
PROVIDERS: PCP Internal Medicine; Referring Provider Internal Medicine Gastroenterology; Visit Provider Internal Medicine Gastroenterology
DX: K76.0 Fatty (change of) liver, not elsewhere classified (principal)
CPT/HCPCS: 76705; 76981

== ENCOUNTER → 2024-07-20 | Outpatient (CLI) | payer BC, SELFPAY ==
--- NOTE | 2024-07-20 10:22 | BD_ITS ---
STUDY: DUAL ENERGY X-RAY ABSORPTIOMETRY / DXA REASON FOR EXAM: Female, 63 years old. 733.00OsteoporosisBONE DENSITY REASON FOR EXAM TECHNIQUE: Bone Mineral Density (BMD) measurements of lumbar spine and bilateral hips were obtained. COMPARISON: Comparison is made with prior study July 16, 2022. FINDINGS: Lumbar Spine (L1-L4): g/cm2 (0.795) / T-score (-2.3) / Z-score (-0.6) Findings are suggestive of osteopenia with a high fracture risk. Left Femur Total: g/cm2 (0.878) / T-score (-0.5) / Z-score (0.6) Left Femoral Neck: g/cm2 (0.704) / T-score (-1.3) / Z-score (0.1) Right Femur Total: g/cm2 (0.924) / T-score (0.2) / Z-score (1.0) Right Femoral Neck: g/cm2 (0.675) / T-score (-1.7) / Z-score (-0.1) The T-Scores on the most recent prior examination were: Lumbar Spine (L1-L4): There has been improvement of bone density since the previous examination. Left Femur Total: which represents an improvement of 0.3%. Right Femur Total: which represents an improvement of 2.4%. BD/Dexa Bone Density Study IMPRESSION: The patient is considered osteopenic as outlined below according to World Royal Organization (WHO) criteria with a high fracture risk. There has been improvement of bone density since the previous examination. Reference Information: The T-score is the number of standard deviations above or below the standard which is normal for young adults at their peak bone mineral density. The World Health Organization (WHO) interprets the T-scores as follows: Above -1 Normal bone density Between -1 and -2.5 Osteopenia Equal to / or below -2.5 Osteoporosis As a practical clinical guideline, osteopenia may be graded as follows: Mild -1 through -1.5 Moderate -1.6 through -2.0 Severe -2.1 through -2.4 The Z-score is the number of standard deviations above or below age-matched controls. A Z-score of less than -1.5 would be considered abnormal. References: 1. NIH Osteoporosis and Related Bone Diseases www osteo.org 2. International Society for Clinical Densitometry www iscd.org 3. National Osteoporosis Foundation www nof.org Electronically Signed: Clayton Bishop MD at 10:27 EDT ,
== END | disposition home or self-care (01) ==
LOC: OPBD 10:15
PROVIDERS: PCP Internal Medicine; Referring Provider Internal Medicine; Visit Provider Internal Medicine
DX: M81.0 Age-related osteoporosis without current pathological fracture (principal)
CPT/HCPCS: 77080

== ENCOUNTER → 2024-09-22 | Outpatient (CLI) | payer BC, SELFPAY | END | disposition home or self-care (01) | PROVIDERS: PCP Internal Medicine; Referring Provider Internal Medicine; Visit Provider Internal Medicine | DX: M79.2 Neuralgia and neuritis, unspecified (principal) | CPT/HCPCS: 95886; 95911 ==

== ENCOUNTER → 2025-01-05 | Outpatient (CLI) | payer BC, SELFPAY ==
[2025-01-11 13:08] LABS: HPV APTIMA, High Risk Negative (Negative)
== END | disposition home or self-care (01) ==
LOC: LABSPEC 10:49
PROVIDERS: PCP Internal Medicine; Referring Provider Obstetrics & Gynecology; Visit Provider Obstetrics & Gynecology
DX: Z12.4 Encounter for screening for malignant neoplasm of cervix (principal)
CPT/HCPCS: 87624; 88175; G0145

== ENCOUNTER → 2025-01-11 | Outpatient (CLI) | payer BC, SELFPAY ==
--- NOTE | 2025-01-11 13:59 | US_ITS ---
PROCEDURE: PELVIC W/ TRANSVAGINAL REASON FOR EXAM: UTERINE FIBROID TECHNIQUE: Transabdominal and transvaginal pelvic ultrasound COMPARISON: None. FINDINGS: The patient is status post menopausal. Measurements: Uterus: 9.1 cm x 7.7 cm x 6.7 cm with a volume of 243.7 mL Endometrial Thickness: Nonvisualized Right Ovary: Not visualized Left Ovary: Nonvisualized. TRANSABDOMINAL: Uterus: Multiple fibroids are seen. The largest fibroid measures 6.7 cm x 7.1 cm x 5.4 cm. Nabothian cyst. Endometrium: Nonvisualized. Right ovary: Nonvisualized. Left ovary: Nonvisualized. No large pelvic mass identified. Transvaginal sonography was performed to better visualize the endometrium. TRANSVAGINAL: Uterus: Anteverted. Fibroid uterus as described. Endometrium: Nonvisualized. Right ovary: Nonvisualized. Left ovary: Nonvisualized. Other adnexal findings: None. Cul-de-sac: No free intraperitoneal fluid identified. No tenderness. US/Pelvic w/ Transvaginal IMPRESSION: Fibroid uterus. The ovaries were not visualized. Reading Location: [place] [id number]
== END | disposition home or self-care (01) ==
LOC: US 13:59
PROVIDERS: PCP Internal Medicine; Referring Provider Obstetrics & Gynecology; Visit Provider Obstetrics & Gynecology
DX: D25.9 Leiomyoma of uterus, unspecified (principal)
CPT/HCPCS: 76830; 76856

== ENCOUNTER 2025-02-22 07:53 | Day surgery (SDC) | payer BC, SELFPAY ==
--- NOTE | 2025-02-15 15:52 | PAT.ANESEVAL ---
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 When Was Last Pacemaker Check QUESTION #4 FULL TEXT: You/Your Family Experience fever (hyperthermia) with Anesthesia Last Oral Intake Last Oral intake: Last Oral Intake NPO since Meds taken in AM with sips of water? Meds patient instructed to take am of surgery PONV PONV - wind field manager: PONV - wind field manager Female Yes 02/15/25 13:28 HX of Motion Sickness No 02/15/25 13:28 HX of N/V After Surgery Yes 02/15/25 13:28 Non-Smoker Yes 02/15/25 13:28 Duration of Surgery greater No 02/15/25 13:28 than 60 minutes Number of Risk Factors 3 02/15/25 13:28 PONV Score Moderate Risk 02/15/25 13:28 Height & Weight Height & Weight: Anesthesia: Height & Weight Height 5 ft 01/05/25 09:18 Respiratory Assessment Respiratory Assessment - wind field manager: Respiratory Tract Infection Hx - wind field manager Hx Respiratory Tract Infection No 02/15/25 13:28 STOP Sleep Apnea STOP Sleep Apnea - wind field manager: STOP Sleep Apnea - wind field manager Hx Hypertension No 02/15/25 13:28 Hx Sleep Apnea Yes 02/15/25 13:28 CPAP Yes 02/15/25 13:28 BIPAP No 02/15/25 13:28 Do you snore loudly (louder than talking or can be heard Do you often feel tired/ fatigued/ sleepy during daytime? Has anyone observed you stop breathing during sleep? STOP Results Positive 02/15/25 13:28 QUESTION #5 FULL TEXT : Do you snore loudly (louder than talking or can be heard through closed doors)? 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 Specify any problems Hx of Preganancy in last 3 No 02/15/25 13:28 Months Nurse Filling Out Transfusion VLEHMAN 02/15/25 13:28 & Questions: Date: 02/15/25 02/15/25 13:28 Time: 13:35 02/15/25 13:28 Patient unable to answer at this time (ie. confused, unrespo /Reproduction History /Reproductive History - wind field manager: /Reproductive Hx- wind field manager Hx Now Gestational Age (in weeks): EDC: Hx Hx Para Hx Section SAB No 01/05/25 09:30 [facility] Medical History (Updated 02/15/25 @ 13:34 by Anabel Cannon) Wears dentures Wears glasses Post-menopausal Bladder disease Fatty liver High cholesterol CPAP (continuous positive airway pressure) dependence Sleep apnea History of diverticulitis Gastric reflux Non-smoker Right rotator cuff tear High triglycerides Low HDL (under 40) Carpal tunnel syndrome Varicose vein of leg Bronchitis Hair loss Diverticulitis Home Medications ?Medication ?Instructions ?Recorded ?Last Taken ?Type fexofenadine 180 mg tablet 180 mg PO DAILY PRN allergies 09/04/21 Unknown History (Allergy Relief (fexofenadine)) denosumab 60 mg/mL subcutaneous 60 mg subcut [id number] [facility] 09/18/22 Unknown History syringe (Prolia) omeprazole 20 mg capsule,delayed 20 mg PO DAILY PRN GERD 09/18/22 Unknown History release cholecalciferol (vitamin D3) 125 5,000 unit PO DAILY SUPPLEMENT 11/16/22 Unknown History mcg (5,000 unit) tablet (Vitamin D3) vitamin E (dl, acetate) 180 mg 180 mg PO DAILY 01/23/24 Unknown History (400 unit) capsule albuterol sulfate 2.5 mg/3 mL 2.5 mg inhalation Q6H PRN 12/23/24 Unknown History (0.083 %) solution for nebulization bronchospasm BALANCE OF NATURE 2 ea PO DAILY 02/15/25 Unknown History ORTHOBIOPIC 1 ea PO DAILY 02/15/25 Unknown History atorvastatin 10 mg tablet 10 mg PO QHS 02/15/25 Unknown History minoxidil 2 % topical solution 1 ml topical BID 02/15/25 Unknown History (Hair Regrowth Treatment) spironolactone 100 mg tablet 100 mg PO DAILY 02/15/25 Unknown History Allergy/AdvReac Type Severity Reaction Status Date / Time No Known Allergies Allergy Verified 02/15/25 13:19 Surgical History (Updated 02/15/25 @ 13:29 by Anabel Cannon) History of varicose vein procedure History of carpal tunnel surgery Hx of rotator cuff surgery Social History (Updated 01/05/25 @ 09:31 by Rochelle Keller) Smoking Status: Never smoker substance use type: does not use caffeine: Yes what type of physical activity do you participate in: walking frequency: 3-4 times per week seatbelt use: always do you feel safe at home: Yes additional social history: -Ham Audit: Pertinent Findings Pertinent Findings EKG Perinent findings: February 11, 2025. Sinus rhythm. Possible pulmonary disease. Recommendation Anesthesia Recommendation Anesthesia recommendation: OPTIMIZED for anesthesia
[2025-02-16 11:32] LABS: Magnesium 1.9 mg/dL (1.5-2.2)
[2025-02-22] VITALS (11 sets, daily range): BP systolic 94–124; BP diastolic 54–73; PULSE 63–100; RESP 12–22; TEMP 36.2–37.1; O2SAT 90–100; BMI 30.9
[2025-02-22] MEDS: Lactated Ringers 1,000 ML 40 ML IV (08:35)
[2025-02-22] MEDS: Magnesium 2 GM for ERAS IV (08:35)
[2025-02-22] MEDS: Scopolamine 1mg/72hr Patch 1 PATCH TD (08:43)
[2025-02-22] MEDS: Phenazopyridine 95 MG Tablet 190 MG PO (08:43)
[2025-02-22] MEDS: Celecoxib 200 MG Capsule 400 MG PO (08:44)
[2025-02-22] MEDS: Acetaminophen 500 MG Tablet 1000 MG PO (08:44)
[2025-02-22] MEDS: Gabapentin 600 MG Tablet PO (08:44)
--- NOTE | 2025-02-22 09:08 | PCM.HP.BLA ---
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 Is patient in pain?: No Allergies No Known Allergies Allergy (Verified 02/21/25 08:50) Medications ?Medication ?Instructions ?Recorded ?Confirmed ?Type fexofenadine 180 mg tablet 180 mg PO DAILY PRN allergies 09/04/21 02/21/25 History (Allergy Relief (fexofenadine)) denosumab 60 mg/mL subcutaneous 60 mg subcut [id number] [facility] 09/18/22 02/21/25 History syringe (Prolia) omeprazole 20 mg capsule,delayed 20 mg PO DAILY PRN GERD 09/18/22 02/21/25 History release cholecalciferol (vitamin D3) 125 5,000 unit PO DAILY SUPPLEMENT 11/16/22 02/21/25 History mcg (5,000 unit) tablet (Vitamin D3) vitamin E (dl, acetate) 180 mg 180 mg PO DAILY 01/23/24 02/21/25 History (400 unit) capsule albuterol sulfate 2.5 mg/3 mL 2.5 mg inhalation Q6H PRN 12/23/24 02/21/25 History (0.083 %) solution for nebulization bronchospasm BALANCE OF NATURE 2 ea PO DAILY 02/15/25 02/21/25 History ORTHOBIOPIC 1 ea PO DAILY 02/15/25 02/21/25 History atorvastatin 10 mg tablet 10 mg PO QHS 02/15/25 02/21/25 History minoxidil 2 % topical solution 1 ml topical BID 02/15/25 02/21/25 History (Hair Regrowth Treatment) spironolactone 100 mg tablet 100 mg PO DAILY 02/15/25 02/15/25 History Is last menstrual period known: No Post menopausal: Yes Patient : No : No PFSH Medical History Wears dentures Wears glasses Post-menopausal Bladder disease Fatty liver High cholesterol CPAP (continuous positive airway pressure) dependence Sleep apnea History of diverticulitis Gastric reflux Non-smoker Right rotator cuff tear High triglycerides Low HDL (under 40) Carpal tunnel syndrome Varicose vein of leg Bronchitis Hair loss Diverticulitis Surgical History History of varicose vein procedure History of carpal tunnel surgery Hx of rotator cuff surgery Social History Smoking Status: Never smoker substance use type: does not use caffeine: Yes what type of physical activity do you participate in: walking frequency: 3-4 times per week seatbelt use: always do you feel safe at home: Yes additional social history: -Ham HPI TRH BSO cysto Details: JABARI ROTH is a 64 year old G0 wMeasurements: Uterus: 9.1 cm x 7.7 cm x 6.7 cm with a volume of 243.7 mL Endometrial Thickness: Nonvisualized Right Ovary: Not visualized Left Ovary: Nonvisualized. TRANSABDOMINAL: Uterus: Multiple fibroids are seen. The largest fibroid measures 6.7 cm x 7.1 cm x 5.4 cm. Nabothian cyst. Endometrium: Nonvisualized. Right ovary: Nonvisualized. Left ovary: Nonvisualized. No large pelvic mass identified. Transvaginal sonography was performed to better visualize the endometrium. TRANSVAGINAL: Uterus: Anteverted. Fibroid uterus as described. Endometrium: Nonvisualized. Right ovary: Nonvisualized. Left ovary: Nonvisualized. Other adnexal findings: None. Cul-de-sac: No free intraperitoneal fluid identified. No tenderness. US/Pelvic w/ Transvaginal IMPRESSION: Fibroid uterus. The ovaries were not visualized.ced presents for discussion about hysterectomy for large fibroid uterus. She was sent to us from Dr. Richmond who found that her uterus was enlarged on imaging for Diverticulitis and fatty liver disease (nonalcoholic) monitoring. She did have a pelvic ultrasound back in 2017 that showed a 7 cm fibroid and a 2 cm cervical fibroid. She states that she is ready to have the uterus removed because for years she also has been suffering with urinary urgency that is attributed to the large size of her uterus. Ultrasound is as follows: History 0 Elective abortions Hx Para Spontaneous abortions Hx # Term Pregnancies Ectopic pregnancies Hx # Pregnancies Multiple births # of living children ROS Const ROS Unobtainable: All systems reviewed & are unremarkable except as noted in H Resp Resp: Reports system reviewed and no additional complaints, except as documented; Denies cough GI GI: Reports as per HPI Psych Psych: Reports system reviewed and no additional complaints, except as documented Exam Const General: cooperative, healthy appearing, comfortable and no acute distress Neck Neck: normal visual inspection Resp Effort & Inspection: normal respiratory effort GI Inspection: normal to inspection Palpation: soft and nontender Skin General: no rashes or lesions noted Psych Appearance: grossly normal Speech and Movement: speech and movement normal Coding Level of Care Code Off vis,est,level 4 Diagnoses Diverticulosis K57.90 Fatty liver disease, nonalcoholic K76.0 Uterine fibroid D25.9 Assessment and Plan Assessment and Plan (1) Diverticulosis: Status: Chronic (2) Fatty liver disease, nonalcoholic: Status: Chronic (3) Uterine fibroid: Status: Chronic Plan After discussing the patient's diagnosis and treatment plan options, patient wishes to proceed with surgical management. I have discussed with the patient the risks, benefits, and alternatives of the procedure which include but are not limited to risks of anesthesia, bleeding, infection, possible damage to bowel, bladder, or surrounding vasculature which could lead to additional surgery to evaluate any complications. Patient agrees to procedure and wishes to proceed. ACOG/uptodate references given for additional information regarding procedure. plan for total robotic hysterectomy, BSo, Cysto
--- NOTE | 2025-02-22 09:08 | PCM.DC ---
Discharge Instructions Diet Discharge Diet: No restrictions DC O2, CPAP, BIPAP needs Home O2 Discharge instructions: No Dressing / Incision Discharge Activity: May Shower May resume sexual activity in: 8 weeks Weight Bearing Status: Full weight bearing Lifting Restrictions: 10 pounds for 2 weeks Dressing / Incision Call your doctor if your incision/area has: Continuous Slow Oozing, Sudden Increased Bleeding, Increased Pain/ Swelling, Increased Redness and Foul Smelling Discharge Call your doctor if you observe: Fever of 101 or Higher, Using more than 1 pad per hour, Shortness of breath, Chest pain and Uncontrolled pain Suture Line Care: Avoid Pulling/Pushing and Avoid Pinching/Bending Remove Dressing in: 1 week (if present) Cleanse incision/area with: Soap & Water and Keep Dressing Clean & Dry Follow Up Care Please Follow Up With: Reshma Zee DO When: Call to make an appointment with your doctor for a postop visit in 2 and 6 weeks Test Results: Test results from this visit will be discussed in further detail at your follow-up appointment, if applicable. Discharge Plan Admission Primary Reason for Your Visit: hysterectomy Attending Provider: Reshma Zee Primary Care Provider: Patience Olivas Instructions Print Language: Citizen Of [place] Discharge Orders/Prescriptions Prescriptions: New ibuprofen 800 mg tablet 800 mg PO Q8H PRN (Reason: pain) Qty: 30 0RF oxycodone-acetaminophen [Percocet] 5-325 mg tablet 1 tab PO Q4H PRN (Reason: pain) 7 Days Qty: 20 0RF Continued omeprazole 20 mg capsule,delayed release(DR/EC) 20 mg PO DAILY PRN (Reason: GERD) Patient Comments: TAKE 1 CAPSULE BY MOUTH TWICE A DAY Prolia 60 mg/mL syringe 60 mg subcut [id number] Rx Instructions: PT NOT DUE AT THIS TIME - TAKEN OCTOBER 18 vitamin E (dl, acetate) 180 mg (400 unit) capsule 180 mg PO DAILY fexofenadine [Allergy Relief (fexofenadine)] 180 mg tablet 180 mg PO DAILY PRN (Reason: allergies) Patient Comments: TAKE 1 TABLET BY MOUTH EVERY DAY cholecalciferol (vitamin D3) [Vitamin D3] 125 mcg (5,000 unit) Tablet 5,000 unit PO DAILY BALANCE OF NATURE 2 ea PO DAILY ORTHOBIOPIC 1 ea PO DAILY atorvastatin 10 mg tablet 10 mg PO QHS spironolactone 100 mg tablet 100 mg PO DAILY minoxidil [Hair Regrowth Treatment] 2 % solution 1 ml topical BID albuterol sulfate 2.5 mg /3 mL (0.083 %) solution for nebulization 2.5 mg inhalation Q6H PRN (Reason: bronchospasm) Referrals / Follow Up: Patience Olivas DO [Primary Care Provider] - Disposition Disposition (needs filled in before D/C Order can be placed): Home, Self Care
--- NOTE | 2025-02-22 09:17 | PRE.ANES_ITS ---
ASA Classification* ASA Classification ASA Classification: 2 Assessment & Plan Anesthesia* Anesthesia Assessment Anesthesia Assessment: Discussed sedation and/or anesthesia options, risks, benefits, and alternatives with patient/parents/legal guardian/POA. Questions invited. The patient/parents/legal guardian/POA seems to understand and agrees to proceed with anesthesia plan. Reviewed the physical assessment, medical history, allergy history and patient home medications list prior to surgery/procedure/anesthetic and documented any changes. Performed airway and anesthesia risk assessments. Anesthesia Type Anesthesia Type: General History Source History Obtained from:: Patient and Chart Anesthesia Focused Assessment* Temperature: 98.0 F Pulse Rate: 83 Blood Pressure: 124/70 Respiratory Rate: 16 Pulse Ox: 99 Oxygen Delivery Method: Room Air Airway Assessment Mouth opens: >3 cm Mallampati Score: II Teeth Condition: Dentures (Patient has full dentures on top.) and Partial (Patient has lower partial. It is out. Rest of the teeth are tight.) Neck Range of motion (ROM): Full ROM Focused Labs Anesthesia Preop lab: CBC WBC 10.0 K/mm3 (4.4-11.0) 05/17/23 09:05/17/23 RBC 4.34 M/mm3 (4.2-5.4) 05/17/23 09:30 05/17/23 Hgb 13.5 g/dL (12.0-15.0) 05/17/23 09:30 05/17/23 Hct 41.3 % (37-47) 05/17/23 09:30 05/17/23 Plt Count 246 K/mm3 (150-450) 05/17/23 09:30 05/17/23 CHEMISTRY Potassium 3.4 mmol/L (3.5-5.1) L 05/17/23 09:30 05/17/23 Sodium 138 mmol/L (136-145) 05/17/23 09:30 05/17/23 Magnesium 1.9 mg/dL (1.5-2.2) 02/16/25 10:02/16/25 BUN 12 mg/dL (7-18) 05/17/23 09:30 05/17/23 Creatinine 0.84 mg/dL (0.55-1.02) 05/17/23 09:30 05/17/23 Glucose 95 mg/dL (74-106) 05/17/23 09:30 05/17/23 TSH 2.11 uIU/mL (0.358-3.74) 07/10/22 11:44 COAG PT 13.7 SECONDS (11.7-14.9) 01/06/23 08:40 Pre-Assessment Diagnosis/Proposed Procedure Planned Operative Procedure(s): Lap Total Robotic Hysterectomy BSO, Cystoscopy Anesthesia History Anesthesia History - registered associate: Anesthesia History - registered associate Hx Hospitalization No 02/15/25 13:28 Any Problems With Anesthesia No 02/15/25 13:28 Cholinesterase deficiency No 02/15/25 13:28 You/Your Family Experience No 02/15/25 13:28 fever (hyperthermia) with Relationship Recent Exposure to Contagious No 02/22/25 08:38 Disease Does patient have nerve No 02/15/25 13:28 stimulator Patient instructed to have device shut off --Does patient have Pacemaker No 02/22/25 08:38 or ICD? When Was Last Pacemaker Check QUESTION #4 FULL TEXT: You/Your Family Experience fever (hyperthermia) with Anesthesia Last Oral Intake Last Oral intake: Last Oral Intake NPO since 07:00 02/22/25 08:38 Meds taken in AM with sips of Yes 02/22/25 08:38 water? Meds patient instructed to omeprazole 02/22/25 08:38 take am of surgery Any additional information?: Yes NPO since: 07:00 (Patient took her preop Ensure at 7 AM.) Meds taken in AM with sips of water?: Yes PONV PONV - registered associate: PONV - registered associate Female Yes 02/15/25 13:28 HX of Motion Sickness No 02/15/25 13:28 HX of N/V After Surgery Yes 02/15/25 13:28 Non-Smoker Yes 02/15/25 13:28 Duration of Surgery greater No 02/15/25 13:28 than 60 minutes Number of Risk Factors 3 02/15/25 13:28 PONV Score Moderate Risk 02/15/25 13:28 Height & Weight Height & Weight: Anesthesia: Height & Weight Height 5 ft 02/22/25 08:38 Weight: 72 kg 02/22/25 08:38 Body Mass Index (BMI) 30.9 02/22/25 08:38 Respiratory Assessment Respiratory Assessment - registered associate: Respiratory Tract Infection Hx - registered associate Hx Respiratory Tract Infection No 02/15/25 13:28 STOP Sleep Apnea STOP Sleep Apnea - registered associate: STOP Sleep Apnea - registered associate Hx Hypertension No 02/15/25 13:28 Hx Sleep Apnea Yes 02/15/25 13:28 CPAP Yes 02/15/25 13:28 BIPAP No 02/15/25 13:28 Do you snore loudly (louder than talking or can be heard Do you often feel tired/ fatigued/ sleepy during daytime? Has anyone observed you stop breathing during sleep? STOP Results Positive 02/15/25 13:28 QUESTION #5 FULL TEXT : Do you snore loudly (louder than talking or can be heard through closed doors)? 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 Specify any problems Hx of Preganancy in last 3 No 02/15/25 13:28 Months Nurse Filling Out Transfusion [facility] 02/15/25 13:28 & Questions: Date: 02/15/25 02/15/25 13:28 Time: 13:35 02/15/25 13:28 Patient unable to answer at this time (ie. confused, unrespo /Reproduction History /Reproductive History - registered associate: /Reproductive Hx- registered associate Hx Now Gestational Age (in weeks): EDC: Hx Hx Para Hx Section SAB No 02/21/25 08:53 Active Medications Active Medications: Current Medications Generic Name Dose Route Start Last Admin Trade Name Freq PRN Reason Stop Dose Admin Acetaminophen 1,000 mg 02/22/25 10:15 02/22/25 08:44 Acetaminophen 500 Mg Tablet PO 02/22/25 10:16 1,000 mg PREOP ONE Administration Celecoxib 400 mg 02/22/25 10:15 02/22/25 08:44 Celecoxib 200 Mg Capsule PO 02/22/25 10:16 400 mg PREOP ONE Administration Gabapentin 600 mg 02/22/25 10:15 02/22/25 08:44 Gabapentin 600 Mg Tablet PO 02/22/25 10:16 600 mg PREOP ONE Administration Lactated Ringer's 1,000 mls @ 40 mls/hr 02/22/25 10:15 02/22/25 08:35 IV 40 mls/hr .Q25H BERKLEY Administration Cefazolin Sodium 2 gm/ N/A 20 mls @ 400 mls/hr 02/22/25 10:15 IV 02/22/25 10:17 INTRAOP ONE Lactated Ringer's 1,000 mls @ 70 mls/hr 02/22/25 10:15 IV .[id number] BERKLEY Magnesium Sulfate 2 gm/ 104 mls @ 208 mls/hr 02/22/25 10:15 02/22/25 08:35 Dextrose IV 02/22/25 10:44 208 mls/hr X1 ONE Administration Insulin Human Lispro 0 unit 02/22/25 10:15 Insulin Lispro 100 Unit/Ml Insuln.Pen SC 02/22/25 18:00 Q4H PRN PRN BG >/= 180, SEE PROTOCOL Protocol Ondansetron HCl 4 mg 02/22/25 10:15 Ondansetron 4 Mg/2 Ml Vial IV 02/22/25 10:16 INTRAOP ONE Phenazopyridine HCl 190 mg 02/22/25 10:15 02/22/25 08:43 Phenazopyridine 95 Mg Tablet PO 02/22/25 10:16 190 mg PREOP ONE Administration Scopolamine HBr 1 patch 02/22/25 10:15 02/22/25 08:43 Scopolamine 1mg/72hr Patch TD 02/22/25 10:16 1 mg PREOP ONE Administration PFSH Medical History Wears dentures Wears glasses Post-menopausal Bladder disease Fatty liver High cholesterol CPAP (continuous positive airway pressure) dependence Sleep apnea History of diverticulitis Gastric reflux Non-smoker Right rotator cuff tear High triglycerides Low HDL (under 40) Carpal tunnel syndrome Varicose vein of leg Bronchitis Hair loss Diverticulitis Home Medications ?Medication ?Instructions ?Recorded ?Last Taken ?Type fexofenadine 180 mg tablet 180 mg PO DAILY PRN allergi es 09/04/21 Unknown History (Allergy Relief (fexofenadine)) denosumab 60 mg/mL subcutaneous 60 mg subcut [id number] [facility] 09/18/22 Unknown History syringe (Prolia) omeprazole 20 mg capsule,delayed 20 mg PO DAILY PRN GE RD 09/18/22 02/22/25 07:00 History release cholecalciferol (vitamin D3) 125 5,000 unit PO DAILY S UPPLEMENT 11/16/22 Unknown History mcg (5,000 unit) tablet (Vitamin D3) vitamin E (dl, acetate) 180 mg 180 mg PO DAILY 4 Unknown History (400 unit) capsule albuterol sulfate 2.5 mg/3 mL 2.5 mg inhalation Q6H UT N 12/23/24 Unknown History (0.083 %) solution for nebulization bronchospasm BALANCE OF NATURE 2 ea PO DAILY 02/15/25 Unkno wn History ORTHOBIOPIC 1 ea PO DAILY 02/15/25 Unkno wn History atorvastatin 10 mg tablet 10 mg PO QHS 02/15/25 Unknow n History minoxidil 2 % topical solution 1 ml topical BID Unknown History (Hair Regrowth Treatment) spironolactone 100 mg tablet 100 mg PO DAILY 02/15/25 Unknown History ibuprofen 800 mg tablet 800 mg PO Q8H PRN pain #30 t abs 02/22/25 Unknown Rx oxycodone-acetaminophen 5 mg-325 1 tab PO Q4H PRN pain 7 days #20 02/22/25 Unknown Rx mg tablet (Percocet) tabs Allergy/AdvReac Type Severity Reaction Status Date / Time No Known Allergies Allergy Verified 02/22/25 08:37 Surgical History History of varicose vein procedure History of carpal tunnel surgery Hx of rotator cuff surgery Social History Smoking Status: Never smoker substance use type: does not use caffeine: Yes what type of physical activity do you participate in: walking frequency: 3-4 times per week seatbelt use: always do you feel safe at home: Yes additional social history: -Ham Review of Systems (Anesthesia) ROS Narrative System reviewed and no additional complaints, except as documented.
--- NOTE | 2025-02-22 09:36 | PCM.POST.ANE ---
Anesthesia: Postop Eval I Current Vital Signs Temperature: 97.9 F Pulse Rate: 100 Blood Pressure: 114/63 Respiratory Rate: 22 Pulse Ox: 90 Oxygen Delivery Method: Nasal Cannula Oxygen Flow Rate (L/min): 4 Assessment Airway patent: Yes Spontaneous unlabored respirations: Yes Mental status: Awake and Calm nausea: No Vomiting: No Anesthesia Complication: No Fluid Hydration Crystalloid volume administer (ml): 1,000 Total IV fluid infused: 1,000 Progress Note Post-operative progress note: pt pulse ox, not great, some coaching and HOB 40 degrees, pt following commands Anesthesia document: Postop Eval 1 completed: No
--- NOTE | 2025-02-22 09:44 | PCM.POST.ANE ---
Anesthesia: Postop Eval I Current Vital Signs Temperature: 97.8 F Pulse Rate: 65 Blood Pressure: 94/54 Respiratory Rate: 20 Pulse Ox: 99 Oxygen Delivery Method: Room Air Assessment Airway patent: Yes Spontaneous unlabored respirations: Yes Mental status: Awake and Calm nausea: No Vomiting: No Anesthesia Complication: No Fluid Hydration Crystalloid volume administer (ml): 1,000 Total IV fluid infused: 1,000 Progress Note Anesthesia document: Postop Eval 1 completed: Yes
--- NOTE | 2025-02-22 10:15 | UT_PTH ---
PATIENT: JABARI ROTH LOC: [facility] [place] U#:[id number] AGE/SX: 64/F ROOM: RE02/22/[address]: Dr. Reshma Zee DO : 1960 BED: DIS: 02/22/2025 SPEC #: [id number] RECD: 02/22/25 13:41 STATUS: ANDRESSA RERobson #: [id number] BEVERLEY: 02/22/25 10:[address]: Reshma Zee DEPT: SURGICAL PATHOLOGY RECD BY: Garcia Hawkins ENTERED: 02/22/25 13:41 SP TYPE: UTERUS OTHR DR: Dr. Patience Olivas DO Tissues: A - Uterus, NOS Procedures: Surgery Specimen Level V HEADER OPERATION: ERAS, laparoscopic total robotic hysterectomy BSO, cystoscopy PRE-OP DIAGNOSIS: Uterine fibroid TISSUE SUBMITTED: A- Uterus, cervix, bilateral fallopian tubes and bilateral ovaries - 210gm MICROSCOPIC DIAGNOSIS A. Uterus, cervix, bilateral fallopian tubes and bilateral ovaries, hysterectomy (morcellation) with bilateral salpingo-oopherectomy: * Cervix: no specific pathologic change * Endometrium: cystic atrophy * Myometrium: leiomyomata with focal dystrophic calcification (7.5 cm) * Ovary and fallopian tube: no specific pathologic change * Ovary and fallopian tube: no specific pathologic change MICROSCOPIC DESCRIPTION Slides are reviewed. GROSS DESCRIPTION A. Received in formalin in a container labeled with the patient's name, date of , and uterus, cervix, bilateral fallopian tubes, bilateral ovaries is a morcellated hysterectomy specimen received in multiple fragments measuring 11.0 x 11.0 x 5.5 cm in aggregate and 208.7 g altogether. No orientation is able to be determined. A 1.7 x 1.0 cm ectocervical face is identified with a 0.6 x 0.4 cm ovoid os. A scant amount of intact rob-pink serosa is identified. Serial sections reveal a small amount of red-rob possible endometrium measuring up to 0.1 cm thick. The rob-pink myometrium is unremarkable. There is an abundance of white whorled myometrial nodules ranging from 0.5 x 0.5 x 0.4 cm to 7.5 x 6.8 x 5.3 cm. There are scattered calcifications; no hemorrhage or necrosis is identified. There are 2 unoriented fimbriated fallopian tubes, each measuring 3.5 x 0.8 cm. Sectioning of each reveals a pinpoint lumen. There are 2 ovaries each attached to its respective fallopian tube; 1.0 g and 2.2 x 0.9 x 0.7 cm, and 1.2 g and 2.3 x 0.9 x 0.8 cm. Each ovary displays a rob-pink, unremarkable outer surface and typical ovarian parenchyma is noted on bivalving. Record Clerk sections:A1. CervixA2-3. Possible endometriumA4-6. Sampled myometrial nodulesA7. Fallopian tube with attached smaller ovaryA8. Fallopian tube with attached to larger ovary [facility] 02/23/2025 CPT:97501
[2025-02-22] MEDS: Cefazolin 2 GM in Syringe 10 ML IV (10:17)
[2025-02-22] MEDS: Bupivacaine 0.25% 30 ML Vial (10:36)
--- NOTE | 2025-02-22 11:43 | PCM.OPRPT ---
Problems Associated Problem List Diagnoses (1) Uterine fibroid: Multi Select Codes Urinary/Genital Urinary/Genital CPT Codes: 81201 Cystoscopy and 18004 TLH+BS/O <250gr uterus Operative Report (Standard) Operative Information Date of Procedure: 02/22/25 Pre-Operative Diagnosis: enlarged uterine fibroid, pelvic pain Post-Operative Diagnosis: enlarged uterine fibroid, pelvic pain Surgery/Procedure Performed: total robotic hysterectomy, bilateral salpingo-oophorectomy, cystoscopy junior account executive: Yes Health Assessment And Treatment Teacher: Asif Babin Tasks completed by assistant corporate controller: Closing, Trocar and Retracting Additional medical receptionist assistant?: No Type of Anesthesia: General RN Documented Start/Stop Times: Operation Date: 02/22/25 10:15 Case Time Into Pre-Op 02/22/25 08:03 Anesthesia Start 02/22/25 09:59 Into Room 02/22/25 09:59 Procedure Start 02/22/25 10:36 Procedure Start Time: 10:36 Procedure Stop Time: 11:57 Select all DRAINS/GRAFTS/IMPLANTS that apply: None Estimated Blood Loss: 50cc Specimen collected: Yes Description of specimen(s) removed: uterus, cervix, fallopian tubes, uterine fibroids Description of surgery: Findings: 10 cm size uterus, 7 cm anterior uterine fibroid, smaller fibroids noted laterally and posteriorly; normal appearing ovaries and tubes. On exploration of the abdominal cavity the uterus, adnexa, bowel, and liver were found to be normal. Cystoscopy showed no evidence of leaking at approximately 250 cc of normal saline, positive ureteral orifices and jet flow are seen and no suture material was appreciated in the bladder. Specimens removed: Uterus and cervix, Bilateral tubes and ovaries Reason for surgery: This is a 64-year-old who presented to my office with history of low back pain and pelvic pain, and mention of mass like structure on colonoscopy. CT and ultrasound confirmed an enlarged fibroid uterus. The planned procedure is for a robotic hysterectomy the risks benefits and alternatives were discussed with the patient the patient had a clear understanding of the procedure and a consent form was signed. Procedure: The patient was placed in the dorsal low lithotomy position and prepped and draped in the normal sterile fashion both abdominally and in the perineum. Her legs were placed in stirrups a Cornejo catheter was inserted into the urethra without difficulty. A weighted speculum was placed in the vagina and a single-tooth tenaculum was used to grasp the anterior lip of the cervix. An advincula uterine manipulator was inserted through the cervix without complication. It was then tied into place at the 2 and 10:00 locations on the cervix. Gloves were changed and attention was turned towards the abdomen. Approximately 23 cm above the pubic symphysis in the midline, and after Marcaine injection, a 8 mm incision was made. An 8 mm trocar was inserted through the laparoscope, then inserted into the abdomen under direct visualization using the laparoscope. Good abdominal placement was noted and no complications were appreciated. An air seal device was utilized to create pneumoperitoneum. At 12 cm lateral to the midline on the left and right sides 8 mm accessory ports were placed. Next a left upper quadrant 8 mm medical receptionist assistant port site was placed. The patient was placed in steep Trendelenburg position. The robot was docked. The hysterectomy was initiated first by taking down the round ligament on each side using the vessel sealer device. The peritoneum between the round ligament and the IP ligament was opened using electrocautery and extended the length of the IP ligament. The IP ligament was then taken down using the vessel sealer device. These areas were freed without complication the broad ligament was then and taken down using the vessel sealer device. Next the bladder flap was taken down without complication. This was done using monopolar cautery to the level of the cervical vaginal junction. After the bladder flap was created, uterine vessels were then isolated and cauterized using the vessel sealer device and EndoShears. At this point the uterine vessels were taken down further starting from the ascending branch, dissecting along the edges of the cervix to the level of the cervical vaginal junction with hemostasis appreciated. The cervical vaginal junction was then using monopolar cautery in a circumferential pattern across the superior aspect of the cervix. The specimen was delivered through the vagina via minimal vaginal morcellation and sent to pathology. The remaining vaginal cuff was then closed using a V lock suture. This was performed in a running technique. Excellent hemostasis was obtained and good closure was noted. Irrigation was then performed. All operative sites were noted to be hemostatic. A cystoscopy was performed with a 70 degree cystoscope through the urethra into the bladder without complication. The bladder was instilled with approximately 250 cc of normal saline. Intraoperative images were made. Ureteral orifices and jets were identified. No suture material was appreciated in the bladder. The bladder was then drained and cystoscope was removed. The abdominal cavity was again examined using the laparoscope after the robot was undocked. All operative sites were noted to be hemostatic. The trochars were removed under direct visualization without complication and pneumoperitoneum was reduced. At this point the skin was then closed using 4-0 Monocryl subcuticular stitch and sealed with surgical glue. The patient tolerated the procedure well sponge lap and needle counts were correct x2 the patient was taken to the recovery room in stable condition. Surgical Findings: enlarged fibroid uterus Complications Complications: No Admit VTE Documentation VTE Present on Admission: No VTE Mechan Device Prophylaxis: SCD's VTE Pharm Prophylaxis ordered?: No
[2025-02-22] MEDS: Lactated Ringers @ 70 MLS/HR 70 ML IV (12:31)
[2025-02-22] MEDS: HYDROcodone Bitartrate/Apap 5/325 Tablet PO (13:58)
--- NOTE | 2025-02-22 20:15 | POSTOPAN2_ITS ---
Anesthesia Postop Eval I Sum Postop Eval Completion status Anesthesia document: Postop Eval 1 completed: Yes Anesthesia Postop Eval I Summary Anesthesia Postop Eval I Summary: Anesthesia Postop Eval I: Assessment Summary Airway patent Yes 02/22/25 12:15 KITCHEN RUNNER.BHOS Spontaneous unlabored Yes 02/22/25 12:15 KITCHEN RUNNER.[facility]OS respirations Mental status Awake,Calm 02/22/25 12:15 KITCHEN RUNNER.BHOS nausea No 02/22/25 12:15 KITCHEN RUNNER.[facility]OS Vomiting No 02/22/25 12:15 KITCHEN RUNNER.OS Anesthesia Postop Eval I: Fluid Summary Crystalloid volume administer 1,000 02/22/25 12:15 KITCHEN RUNNER.BHOS (ml) Colloids volume administered ( ml) Blood Product volume administered (ml) Total IV fluid infused 1,000 02/22/25 12:15 KITCHEN RUNNER.OS Anesthesia Postop Eval I: Summary Notes Anesthesia Complication No 02/22/25 12:15 KITCHEN RUNNER.[facility] Anesthesia Complication Comment: Post-operative progress note pt pulse ox, not 02/22/25 09:37 KITCHEN RUNNER.BHOS great, some coaching and HOB 40 degrees, pt following commands Anesthesia: Postop Eval II Evaluation Mental status: Awake and Calm Pain Level: 1 nausea: No Vomiting: No Progress Note Post-operative progress note: After first 30 minutes patient able to hold oxygen saturation at 100% by herself on room air. Complications Anesthesia Complication: No
--- NOTE | 2025-02-22 20:15 | PCM.POSTANE2 ---
Anesthesia Postop Eval I Sum Postop Eval Completion status Anesthesia document: Postop Eval 1 completed: Yes Anesthesia Postop Eval I Summary Anesthesia Postop Eval I Summary: Anesthesia Postop Eval I: Assessment Summary Airway patent Yes 02/22/25 12:15 SWITCHBOARD OPERATOR HELPER.BHOS Spontaneous unlabored Yes 02/22/25 12:15 SWITCHBOARD OPERATOR HELPER.BHOS respirations Mental status Awake,Calm 02/22/25 12:15 SWITCHBOARD OPERATOR HELPER.BHOS nausea No 02/22/25 12:15 SWITCHBOARD OPERATOR HELPER.BHOS Vomiting No 02/22/25 12:15 SWITCHBOARD OPERATOR HELPER.OS Anesthesia Postop Eval I: Fluid Summary Crystalloid volume administer 1,000 02/22/25 12:15 SWITCHBOARD OPERATOR HELPER.BHOS (ml) Colloids volume administered ( ml) Blood Product volume administered (ml) Total IV fluid infused 1,000 02/22/25 12:15 SWITCHBOARD OPERATOR HELPER.OS Anesthesia Postop Eval I: Summary Notes Anesthesia Complication No 02/22/25 12:15 SWITCHBOARD OPERATOR HELPER.[facility] Anesthesia Complication Comment: Post-operative progress note pt pulse ox, not 02/22/25 09:37 SWITCHBOARD OPERATOR HELPER.BHOS great, some coaching and HOB 40 degrees, pt following commands Anesthesia: Postop Eval II Evaluation Mental status: Awake and Calm Pain Level: 1 nausea: No Vomiting: No Progress Note Post-operative progress note: After first 30 minutes patient able to hold oxygen saturation at 100% by herself on room air. Complications Anesthesia Complication: No
== END 2025-02-22 15:52 | disposition home or self-care (01) ==
LOC: SDC 07:54 → AC 07:55
PROVIDERS: PCP Internal Medicine; Referring Provider Obstetrics & Gynecology; Visit Provider Obstetrics & Gynecology
PROC: 0UT94ZZ Resection of Uterus, Percutaneous Endoscopic Approach (ICD-10-PCS; CPT 58571; principal; 2025-02-22 09:55)
DX: D25.9 Leiomyoma of uterus, unspecified (principal); Z79.4 Long term (current) use of insulin; K76.0 Fatty (change of) liver, not elsewhere classified; E78.00 Pure hypercholesterolemia, unspecified; K21.9 Gastro-esophageal reflux disease without esophagitis; N88.8 Other specified noninflammatory disorders of cervix uteri; Z79.899 Other long term (current) drug therapy; Z87.19 Personal history of other diseases of the digestive system
CPT/HCPCS: 58571; S2900; 00840; 83735; 86850; 86900; 86901; 88307; J2405

== ENCOUNTER → 2025-03-21 | Outpatient (CLI) | payer BC, SELFPAY ==
--- NOTE | 2025-03-21 10:10 | BI_ITS ---
EXAM: SCRN MAMM (CAD)W/ISAAC BILAT DATE: 03/21/2025 CLINICAL HISTORY: F, Age 64 y/o , SCREENING BREAST CANCER RISK ASSESSMENT: Has not been calculated. TECHNIQUE: Bilateral screening digital breast tomosynthesis with 2D and 3D images. Computer aided detection. COMPARISON: Prior exam(s) dated 03/18/2024, 03/17/2023, and 03/14/2022 FINDINGS: TISSUE DENSITY: The breast tissue is composed of scattered area of fibroglandular density.. Bilateral Breast Mammographic Findings: There are no suspicious masses, suspicious cluster of microcalcifications, architectural distortion or secondary signs of malignancy identified in either breast. Benign-appearing round microcalcifications are seen in both breasts. BI/SCRN MAMM (CAD)W/ISAAC BILAT IMPRESSION: OVERALL FINAL ASSESSMENT: BIRADS 2 BENIGN FINDING RECOMMENDATION: Routine annual follow-up in 1 Year A letter with findings and recommendations will be mailed to the patient. Reading Location: [id number]
== END | disposition home or self-care (01) ==
LOC: OPBI 10:09
PROVIDERS: PCP Internal Medicine; Referring Provider Internal Medicine; Visit Provider Internal Medicine
DX: Z12.31 Encounter for screening mammogram for malignant neoplasm of breast (principal)
CPT/HCPCS: 77063; 77067